=== PATIENT | female | born 1950 | race Caucasian/White ===

== ENCOUNTER 2020-09-19 08:57 | Outpatient (REF) | payer MEDICARE, MEDICAID, SELFPAY ==
--- NOTE | 2020-09-19 09:03 | MM_ITS ---
EXAMINATION: MM SCREENING DIGITAL BREAST TOMOSYNTHESIS, BILATERAL CLINICAL INFORMATION: Screening. Asymptomatic. The lifetime risk of breast cancer based on the Tyrer-Cuzick Model is 3%. COMPARISON: Mammography: 03/09/2012 TECHNIQUE: Digital breast tomosynthesis is performed in both the craniocaudal and mediolateral oblique views along with computer-aided detection (CAD). Synthesized 2D images are generated from the tomosynthesis. FINDINGS: There are scattered areas of fibroglandular density (ACR BI-RADS breast composition Category b). There are no significant masses, abnormal calcifications, or other abnormalities. There are scattered bilateral benign punctate and coarse and vascular calcifications. Biopsy clip marker present posterior right breast MLO view along posterior nipple line. Prominent axillary nodes are slightly decreased since 2012. MM/MM tomosynthesis screening BI IMPRESSION: No significant changes from remote prior exam. ASSESSMENT: BI-RADS 2: Benign RECOMMENDATION: Routine annual mammography screening. This patient's information was entered into a reminder system with a target due date for their next mammogram.
== END 2020-09-19 08:58 | disposition home or self-care (01) ==
LOC: HO.MAMMO 08:57
PROVIDERS: PCP Internal Medicine; Visit Provider Internal Medicine
DX: Z12.31 Encounter for screening mammogram for malignant neoplasm of breast (principal)
CPT/HCPCS: 77063; 77067

== ENCOUNTER → 2021-01-08 09:15 | Outpatient (BNVA) | payer MEDICARE, MEDICAID, SELFPAY | PROVIDERS: PCP Internal Medicine; Visit Provider Surgery Vascular Surgery | DX: I89.0 Lymphedema, not elsewhere classified (principal) | CPT/HCPCS: 99212 ==

== ENCOUNTER 2021-05-07 01:50 | Emergency (ER) | payer MEDICARE, MEDICAID, SELFPAY ==
--- NOTE | ~2021-05-07 | XR_ITS ---
EXAMINATION: XR PORTABLE CHEST CLINICAL INFORMATION: Cough COMPARISON: 12/12/2009 TECHNIQUE: AP portable upright view of the chest FINDINGS: Lungs are clear. No consolidation, pneumothorax, or pleural effusion. Cardiac and mediastinal contours are normal. Pulmonary vasculature is unremarkable. Osseous structures are unremarkable. Degenerative disc disease is present in the thoracic spine. XR/XR chest 1V IMPRESSION: No acute cardiopulmonary findings
--- NOTE | ~2021-05-07 | CT_ITS ---
EXAMINATION: CT HEAD WITHOUT CONTRAST CLINICAL INFORMATION: Altered mental status. COMPARISON: 02/03/2019 TECHNIQUE: Contiguous axial imaging was performed from the skull base to vertex without intravenous administration of contrast. This CT examination was performed using dose optimization techniques as appropriate, variously including the following: *Automated exposure control *Adjustment of mA and/or kV according to patient size (this includes techniques or standardized protocols for targeted exams where dose is matched to indication/reason for exam; i.e. extremities or head) *Use of iterative reconstruction technique DLP: 612 mGy-cm FINDINGS: There is no evidence of acute intracranial hemorrhage or territorial infarction. No abnormal mass effect or midline shift is seen. Estrella to white matter differentiation is well preserved. No extra-axial fluid collections are identified. Subtle focal prominence of the extra-axial CSF space in the right middle cranial fossa anteriorly is unchanged from prior and likely corresponds to a arachnoid cyst. The ventricles are normal in size. A few foci of hypoattenuation in the subcortical and periventricular white matter are most consistent with chronic microangiopathic changes. Calcific atherosclerosis is present within the cavernous and supraclinoid segments of the internal carotid arteries. The osseous structures and soft tissues are normal. The mastoid air cells and visualized portions of the paranasal sinuses are well aerated. CT/CT head/brain wo con IMPRESSION: No acute intracranial pathology.
[2021-05-07 02:22] VITALS: BP 139/72; BP 168/88; PULSE 65; PULSE 80; RESP 16; TEMP 36.9; O2SAT 97; O2SAT 98; BMI 32.7
[2021-05-07 04:00] VITALS: BP 163/73; PULSE 64; RESP 16; O2SAT 97
--- NOTE | 2021-05-07 04:05 | ED_ITS ---
HPI - Syncope General Chief Complaint: Syncope Stated Complaint: syncope Time Seen by Provider: 05/07/21 04:03 History of Present Illness HPI narrative: Patient is a 71-year-old female with a history of dementia history of hypertension history of psoriasis history of asthma. Patient found outside Her house with possible syncopal episode. Patient does not recall the exact events that occurred prior or afterwards. No chest pain. No shortness of breath no diaphoresis. Has no complaints currently. Patient is from home. No new change in medication. Patient not on blood thinners. Related Data Home Medications Medication Instructions Recorded Confirmed amlodipine 10 mg tablet 10 mg PO DAILY 01/08/21 memantine 5 mg tablet 5 mg PO BID 01/08/21 metformin 500 mg tablet 500 mg PO BID 01/08/21 risperidone 0.5 mg tablet 0.5 mg PO BID 01/08/21 Allergies Allergy/AdvReac Type Severity Reaction Status Date / Time DUST Allergy Mild SHORTNESS Uncoded 07/26/20 15:07 OF BREATH From Lactaid AdvReac Mild DIARRHEA Uncoded 07/26/20 15:07 Review of Systems Review of Systems: No chest pain or shortness of breath no nausea no vomiting. No pain on urination. All systems reviewed otherwise negative FOR[facility]LY [facility] Past Medical History Attestation statement: The following information was validated with the patient. Medical History (Updated 05/07/21 @ 05:26 by Cici House MD) Diabetes Surgical History H/O prior ablation treatment Social History Social History Advance Directives: No Advance Directives Information Provided: No Physical Exam Vital Signs: Vital Signs: Last Vital Signs Temp 98.4 F 05/07/21 02:22 Pulse 65 05/07/21 02:22 Resp 16 05/07/21 02:22 BP 139/72 05/07/21 02:22 Pulse Ox 97 05/07/21 02:22 Body Mass Index 32.7 Appearance: Alert. No acute distress. Eyes: Pupils equal, round and reactive to light. ENT: Pharynx normal. Neck: Normal inspection. Neck supple. No lymph nodes noted. No crepitus CVS: Normal heart rate and rhythm. Pulses normal. Normal S1 and S2 Respiratory: No respiratory distress. Breath sounds normal. No Wheezing. No rales Abdomen: Soft and nontender. No rigidity. No distention. good BS x4 Skin: Skin warm and dry. Normal skin color. Normal skin turgor. Extremities: No lower extremity edema. Neurovascular intact to all extremities. No Lacerations. No Rash Neuro: awake alert oriented to self. know she is in the hospital but unsure which 1. Not oriented to time.. No motor deficit. No sensory deficit. Moving all extermities. No slurred speech MDM - Syncope MDM Narrative Medical decision making narrative: Patient's EKG showed a sinus pattern heart rate is 70 NM QRS QT within normal limits there is no acute ST segment elevation. Patient's labs are unremarkable. CT scan of the head was negative for acute evidence of bleeding. No mass. Electrolytes was normal. Patient's urine showed no evidence of infection. Chest x-ray showed no focal infiltrate. Will admit patient for possible syncopal episode. Currently in stable condition. Lab Data Result diagrams: 05/07/21 04:27 05/07/21 04:27 Labs: Lab Results 05/07/21 05/07/21 05/07/21 Range/Units 04:27 04:27 04:27 WBC 9.8 (4.8-10.8) X10*3/uL RBC 4.04 L (4.20-5.50) X10*6/uL Hgb 12.5 (12.0-16.0) g/dl Hct 37.8 (37-47) % MCV 93.6 (80-98) fL MCH 30.9 (27.0-33.0) pg MCHC 33.1 (31.0-35.0) g/dl RDW 11.9 (11.0-16.0) % Plt Count 245 (160-400) X10*3/uL MPV 9.8 (9.4-12.3) fL Immature Gran % (Auto) 0.6 H (0.0-0.4) % Neut % (Auto) 60.7 (45-73) % Lymph % (Auto) 29.6 (20-40) % Dauphin % (Auto) 7.0 (2-11) % Eos % (Auto) 1.5 (0-4) % Baso % (Auto) 0.6 (0-2) % Lymph # (Auto) 2.9 (1.2-4.9) X10*3/uL Dauphin # (Auto) 0.7 (0.1-1.2) X10*3/uL Eos # (Auto) 0.2 (0.0-0.4) X10*3/uL Baso # (Auto) 0.1 (0.0-0.2) X10*3/uL Abs Immat Gran (auto) 0.06 H (0.00-0.03) X10*3/uL Absolute Neuts (auto) 6.0 (2.0-8.3) X10*3/uL Absolute Nucleated RBC 0.000 (0.0-0.012) X10*3/uL Nucleated RBC % (auto) 0.0 (0.0-0.2) /100WBC Sodium 142 (135-145) mmol/L Potassium 4.1 (3.3-5.1) mmol/L Chloride 104 (96-108) mmol/L Carbon Dioxide 28 (22-29) mmol/L Anion Gap 14 (12-20) BUN 21 H (9-16) mg/dL Creatinine 1.17 (0.5-1.4) mg/dL Estim Creat Clear Calc 40.5 Estimated GFR 45 POC Glucose (60-115) mg/dL Random Glucose 159 H (60-115) mg/dL Calcium 9.4 (8.4-10.2) mg/dL Total Bilirubin 0.3 (0.0-1.0) mg/dL Direct Bilirubin 0.2 (0.0-0.5) mg/dL AST 24 (5-31) U/L ALT 25 (0-31) U/L Alkaline Phosphatase 104 (39-117) U/L Troponin I High Sens (<3.5-17.0) ng/L Total Protein 7.9 (6.5-8.0) g/dL Albumin 4.3 (3.5-5.0) g/dL Urine Color COLORLESS Urine Appearance CLEAR Urine pH 6.0 (5.0-8.0) Ur Specific Adams 1.010 (1.005-1.025) Urine Protein NEG (NEG-TRACE) MG/DL Urine Glucose (UA) NEG (NEG) MG/DL Urine Ketones NEG (NEG) MG/DL Urine Blood NEG (NEG) Urine Nitrite NEG (NEG) Ur Leukocyte Esterase NEG (NEG) Urine RBC 0 (0) /HPF Urine WBC 0-2 (0-4) /HPF Ur Squamous Epith Cells TRACE /LPF Urine Bacteria TRACE /LPF Ethyl Alcohol mg/dL 05/07/21 05/07/21 05/07/21 Range/Units 04:27 04:27 05:04 WBC (4.8-10.8) X10*3/uL RBC (4.20-5.50) X10*6/uL Hgb (12.0-16.0) g/dl Hct (37-47) % MCV (80-98) fL MCH (27.0-33.0) pg MCHC (31.0-35.0) g/dl RDW (11.0-16.0) % Plt Count (160-400) X10*3/uL MPV (9.4-12.3) fL Immature Gran % (Auto) (0.0-0.4) % Neut % (Auto) (45-73) % Lymph % (Auto) (20-40) % Dauphin % (Auto) (2-11) % Eos % (Auto) (0-4) % Baso % (Auto) (0-2) % Lymph # (Auto) (1.2-4.9) X10*3/uL Dauphin # (Auto) (0.1-1.2) X10*3/uL Eos # (Auto) (0.0-0.4) X10*3/uL Baso # (Auto) (0.0-0.2) X10*3/uL Abs Immat Gran (auto) (0.00-0.03) X10*3/uL Absolute Neuts (auto) (2.0-8.3) X10*3/uL Absolute Nucleated RBC (0.0-0.012) X10*3/uL Nucleated RBC % (auto) (0.0-0.2) /100WBC Sodium (135-145) mmol/L Potassium (3.3-5.1) mmol/L Chloride (96-108) mmol/L Carbon Dioxide (22-29) mmol/L Anion Gap (12-20) BUN (9-16) mg/dL Creatinine (0.5-1.4) mg/dL Estim Creat Clear Calc Estimated GFR POC Glucose 138 H (60-115) mg/dL Random Glucose (60-115) mg/dL Calcium (8.4-10.2) mg/dL Total Bilirubin (0.0-1.0) mg/dL Direct Bilirubin (0.0-0.5) mg/dL AST (5-31) U/L ALT (0-31) U/L Alkaline Phosphatase (39-117) U/L Troponin I High Sens < 3.5 (<3.5-17.0) ng/L Total Protein (6.5-8.0) g/dL Albumin (3.5-5.0) g/dL Urine Color Urine Appearance Urine pH (5.0-8.0) Ur Specific Adams (1.005-1.025) Urine Protein (NEG-TRACE) MG/DL Urine Glucose (UA) (NEG) MG/DL Urine Ketones (NEG) MG/DL Urine Blood (NEG) Urine Nitrite (NEG) Ur Leukocyte Esterase (NEG) Urine RBC (0) /HPF Urine WBC (0-4) /HPF Ur Squamous Epith Cells /LPF Urine Bacteria /LPF Ethyl Alcohol < 10 mg/dL Discharge Plan Discharge Clinical Impression: Syncope Patient Disposition: Admitted As Inpatient
--- NOTE | 2021-05-07 04:07 | ECG_ITS ---
Test Reason : SYNCOPAL Blood Pressure : / mmHG Vent. Rate : 066 BPM Atrial Rate : 066 BPM P-R Int : 232 ms QRS Dur : 082 ms QT Int : 428 ms P-R-T Axes : 043 -02 009 degrees QTc Int : 448 ms Sinus rhythm with 1st degree A-V block Inferior infarct (cited on or before 11-MAR-2010) Abnormal ECG When compared with ECG of 11-MAR-2010 14:24, Nonspecific T wave abnormality now evident in Inferior leads Referred By: Cici House Electronically Signed By:HONEY ADKINS MD
--- NOTE | 2021-05-07 04:30 | PC.NURSE ---
PT HAS A IV PLACED BY EMS. LABS DRAWN TO LAB FOR EVAL. PT UP TO RESTROOM FOR URINE SAMPLE WITH STEADY EVEN GAIT TO RESTROOM. SAMPLE SENT TO LAB. PT TO CT AMBULATORY. PT DENIES ANY COMPLAINTS AND WILL CONTINUE TO MONITOR PT.
[2021-05-07 04:40] LABS: MANUAL DIFF FLAG NO
[2021-05-07 04:41] LABS: Appearance Urine CLEAR; Color Urine COLORLESS; Glucose Urine UA NEG (NEG); Leukocyte Esterase Urine NEG (NEG); Nitrite Urine NEG (NEG); Urine Blood NEG (NEG); Urine Ketones NEG (NEG); Urine Protein NEG (NEG-TRACE)
[2021-05-07 04:42] LABS: Basophils Absolute Auto 0.1 X10*3/uL (0.0-0.2); Basophils Percent Auto 0.6 % (0-2); Eosinophils Absolute Auto 0.2 X10*3/uL (0.0-0.4); Eosinophils Percent Auto 1.5 % (0-4); Hematocrit 37.8 % (37-47); Hemoglobin 12.5 g/dl (12.0-16.0); Imm Gran Abs Auto 0.06 X10*3/uL (0.00-0.03); Imm Gran Pct Auto 0.6 % (0.0-0.4); Lymphocytes Absolute Auto 2.9 X10*3/uL (1.2-4.9); Lymphocytes Percent Auto 29.6 % (20-40); Mean Corpuscular HGB Conc 33.1 g/dl (31.0-35.0); Mean Corpuscular Hemoglobin 30.9 pg (27.0-33.0); Mean Corpuscular Volume 93.6 fL (80-98); Mean Platelet Volume 9.8 fL (9.4-12.3); Monocytes Absolute Auto 0.7 X10*3/uL (0.1-1.2); Neutrophils Percent Auto 60.7 % (45-73); Platelet Count 245 X10*3/uL (160-400); Red Blood Count 4.04 X10*6/uL (4.20-5.50); Red Cell Distribution Width 11.9 % (11.0-16.0); White Blood Count 9.8 X10*3/uL (4.8-10.8)
[2021-05-07 05:04] LABS: Bacteria Urine TRACE /LPF; RBC Urine 0 /HPF (0); Squamous Epithelial Cell Urine TRACE /LPF; Troponin-I High Sensitivity < 3.5 ng/L (<3.5-17.0); WBC Urine 0-2 /HPF (0-4)
[2021-05-07 05:06] LABS: Ethanol < 10 mg/dL
[2021-05-07 05:08] LABS: Glucose, Whole Blood 138 mg/dL (60-115)
[2021-05-07 05:09] LABS: Alanine Aminotransferase 25 U/L (0-31); Albumin Level 4.3 g/dL (3.5-5.0); Alkaline Phosphatase 104 U/L (39-117); Anion Gap 14 (12-20); Aspartate Amino Transferase 24 U/L (5-31); Bilirubin Direct 0.2 mg/dL (0.0-0.5); Bilirubin Total 0.3 mg/dL (0.0-1.0); Blood Urea Nitrogen 21 mg/dL (9-16); Calcium 9.4 mg/dL (8.4-10.2); Carbon Dioxide 28 mmol/L (22-29); Chloride 104 mmol/L (96-108); Creatinine Clr Calc Pharmacy 40.5; Estimated Glomerular Filt Rate 45; Glucose Random 159 mg/dL (60-115); Potassium 4.1 mmol/L (3.3-5.1); Sodium 142 mmol/L (135-145); Total Protein 7.9 g/dL (6.5-8.0)
[2021-05-07 05:29] LABS: Thyroid Stimulating Hormone 1.28 uIU/mL (0.32-4.0)
[2021-05-07 06:00] VITALS: BP 146/79; PULSE 60; RESP 16; O2SAT 97
--- NOTE | 2021-05-07 06:25 | PC.NURSE ---
MED REC DONE. PT ON MONITOR WITH A HR OF 61. PT IN NAD AND AWAITING FOR ADMISSION ORDERS. PT DENIES ANY COMPLAINTS. PT AT TIME APPEARS TO BE CONFUSED AND FORGETFUL REPEATING ASKING HOW DID I GET HERE AND WHAT HAPPENED? PT REDIRECTED. WILL CONTINUE TO MONITOR PT.
--- NOTE | 2021-05-07 07:30 | PC.NURSE ---
pt ambulatory to th e bathroom and back with a steady gate.
[2021-05-07 08:29] VITALS: PULSE 64
[2021-05-07 08:29] LABS: COVID-19 Test Negative (Negative); IDNOW Serial# 9DD0AD1C
[2021-05-07 08:31] VITALS: BP 160/81; PULSE 60; RESP 14; O2SAT 100
[2021-05-07 10:00] VITALS: BP 149/68; PULSE 64; RESP 16; O2SAT 98
--- NOTE | 2021-05-07 10:22 | PC.NURSE ---
discharge instructions given to sister who verbalized understanding and denie sany questions
== END 2021-05-07 10:21 | disposition home or self-care (01) ==
PROVIDERS: Emergency Medicine Emergency Medical Services; Emergency Provider Emergency Medicine Emergency Medical Services
DX: R55 Syncope and collapse (principal); F03.90 Unspecified dementia, unspecified severity, without behavioral disturbance, psychotic disturbance, mood disturbance, and anxiety; I10 Essential (primary) hypertension; E11.9 Type 2 diabetes mellitus without complications; J45.909 Unspecified asthma, uncomplicated; Z20.822 Contact with and (suspected) exposure to COVID-19
CPT/HCPCS: 36415; 70450; 71045; 80048; 80076; 81001; 82077; 82947; 84443; 84484; 85025; 87635; 93005; 99285

== ENCOUNTER 2021-09-16 10:35 | Outpatient (REF) | payer MEDICARE, MEDICAID, SELFPAY ==
--- NOTE | ~2021-09-16 | US_ITS ---
EXAMINATION: US RETROPERITONEAL LIMITED (RENAL ONLY) CLINICAL INFORMATION: Chronic kidney disease. COMPARISON: CT abdomen and pelvis 05/20/2010. TECHNIQUE: Real-time imaging of the kidneys. FINDINGS: RIGHT KIDNEY: 8.2 x 4.0 x 4.3 cm (SAG x AP x TRV). The kidney is normal in size and echogenicity. Renal cortical thickness is normal. No calculi or focal parenchymal lesions. No hydronephrosis. LEFT KIDNEY: 9.4 x 4.4 x 4.0 cm (SAG x AP x TRV). The kidney is normal in size, contour, and echogenicity. Renal cortical thickness is normal. No calculi or focal parenchymal lesions. No hydronephrosis. US/US renal BI IMPRESSION: No renal calculi or hydronephrosis of either kidney.
== END 2021-09-16 10:36 | disposition home or self-care (01) ==
LOC: HO.US 10:35
PROVIDERS: Visit Provider Internal Medicine Nephrology
DX: N18.32 Chronic kidney disease, stage 3b (principal)
CPT/HCPCS: 76775

== ENCOUNTER 2021-12-03 13:20 | Outpatient (REF) | payer MEDICARE, MEDICAID, SELFPAY ==
--- NOTE | ~2021-12-03 | CT_ITS ---
EXAMINATION: CT ABDOMEN AND PELVIS WITH CONTRAST CLINICAL INFORMATION: Left lower quadrant abdominal pain, swelling, mass lump. COMPARISON: 05/20/2010 TECHNIQUE: Multidetector volumetric images were obtained from the superior aspect of the liver through the pubic symphysis following administration 85 mL of Omnipaque 350 intravenous contrast. Sagittal and coronal reformatted images were obtained on the technologist's workstation. Oral contrast: No This CT examination was performed using dose optimization techniques as appropriate, variously including the following: *Automated exposure control *Adjustment of mA and/or kV according to patient size (this includes techniques or standardized protocols for targeted exams where dose is matched to indication/reason for exam; i.e. extremities or head) *Use of iterative reconstruction technique DLP: 474 mGy-cm FINDINGS: LUNG BASES: There are some bilateral scattered regions of ground-glass opacity in a peripheral pattern which may be related to atelectasis; however, viral pneumonitis is not excluded on this study. No pleural or pericardial effusion. There is a 1.5 x 0.9 cm right pericardial lymph node. This was present on prior study of 05/20/2010. LIVER, GALLBLADDER, AND BILIARY TREE: The liver is normal in size, shape, and attenuation. No focal hepatic lesion or biliary ductal dilatation is present. Status post cholecystectomy. Common bile duct measures 1.2 cm in diameter. No filling defects within the common bile duct are identified. No mass impression with a pancreatic mass is seen. PANCREAS: There has been fatty involution of the pancreas. Within the head of the pancreas, there is an approximately 8 mm low-density lesion. Within the distal body of the pancreas, there is a 1.5 x 0.7 cm low-density region. No peripancreatic inflammatory changes seen. The pancreatic lesions were not definitely identified on study of 05/20/2010. SPLEEN: Unremarkable. ADRENAL GLANDS: Unremarkable. KIDNEYS AND URETERS: The kidneys are normal in size, shape, and attenuation. No hydronephrosis, hydroureter, or calculi seen. No perinephric stranding. BLADDER: Decompressed GASTROINTESTINAL TRACT: No dilated loops of large or small bowel are seen. No free air or free fluid is noted. No pericolonic inflammatory changes seen. There are some scattered diverticula present. The appendix is not identified. ABDOMINAL WALL: No significant hernia is appreciated. LYMPH NODES: There are prominent right inguinal lymph nodes, the largest of which measures 2.3 x 1.0 cm in size. There is a 1.7 x 1.0 cm left iliac chain lymph node. VASCULAR: There is moderate calcified plaque seen in the aortoiliac system with prominent plaque at the origins of the celiac and superior mesenteric arteries. No abdominal aortic aneurysm. Portal vein is patent. PELVIC VISCERA: Unremarkable. OSSEOUS STRUCTURES: No suspicious destructive bony lesions identified. Multilevel degenerative disc disease is seen. Changes of enthesopathy seen about the pelvis. CT/CT abdomen pelvis w con IMPRESSION: Scattered regions of groundglass opacity about the periphery of both lung bases which may be related to atelectasis; however, this appearance could also be seen with viral pneumonitis. Prominent common bile duct status post cholecystectomy. Low-density pancreatic lesions consistent with serous or mucinous pancreatic tumors. These were not definitely identified on study of 05/20/2010; however, intravenous contrast was not used on that study. Left iliac chain lymphadenopathy as well as prominent lymph nodes in the right inguinal region. Fleischner guidelines were followed.
[2021-12-03 14:30] LABS: Anion Gap 17 (12-20); Blood Urea Nitrogen 20 mg/dL (9-16); Calcium 9.4 mg/dL (8.4-10.2); Carbon Dioxide 28 mmol/L (22-29); Chloride 101 mmol/L (96-108); Estimated Glomerular Filt Rate 39; Glucose Random 138 mg/dL (60-115); Potassium 4.6 mmol/L (3.3-5.1); Sodium 141 mmol/L (135-145)
[2021-12-03] MEDS: Barium Sulfate Oral (Berry) 450 ML ORAL.SUSP 900 ML PO (16:09)
[2021-12-03] MEDS: iohexoL 350 MG/ML 100 ML INFUS..BTL IV (16:10)
== END 2021-12-03 13:21 | disposition home or self-care (01) ==
LOC: HO.CT 13:20
PROVIDERS: Absent Provider Internal Medicine; PCP Internal Medicine; Visit Provider Internal Medicine
DX: R19.04 Left lower quadrant abdominal swelling, mass and lump (principal)
CPT/HCPCS: 36415; 74177; 80048; Q9967

== ENCOUNTER → 2021-12-25 11:14 | Outpatient (BNVA) | payer MEDICARE, MEDICAID, SELFPAY | PROVIDERS: PCP Internal Medicine; Referring Provider Internal Medicine; Visit Provider Surgery | DX: K86.9 Disease of pancreas, unspecified (principal) | CPT/HCPCS: 99202 ==

== ENCOUNTER 2022-01-27 10:34 | Outpatient (REF) | payer MEDICARE, MEDICAID, SELFPAY ==
--- NOTE | ~2022-01-27 | MR_ITS ---
EXAMINATION: MR ABDOMEN WITHOUT AND WITH CONTRAST CLINICAL INFORMATION: Unspecified disease of pancreas. COMPARISON: Previous CT of the abdomen and pelvis November 2021. TECHNIQUE: MR abdomen was performed without and with use of 6.5 mL intravenous Gadavist gadolinium contrast. Postcontrast images are performed in multiphase dynamic sequences. Imaging was performed in 3 planes. FINDINGS: LUNG BASES: The visualized lung bases are unremarkable. LIVER, GALLBLADDER, AND BILIARY TREE: The liver is normal in size, smooth in contour and contour. There is slight signal loss in the liver on out of phase sequences suggestive of mild fatty infiltration. There is no intrahepatic biliary duct dilatation. There is mild dilatation of the common bile duct measuring 1 cm. The common bile duct is dilated down to the head of the pancreas. No stone, mass or bile duct abnormal enhancement is seen. The gallbladder has been removed. PANCREAS: Pancreas appears slightly atrophic. There are innumerable small cysts seen in the pancreas. The largest cysts measure 1 cm in the tail of the pancreas and 1 cm in the uncinate process of the head of the pancreas. There are innumerable smaller cysts seen throughout the pancreas that may represent dilated pancreatic duct radicles. The 1 cm cyst in the tail of the pancreas demonstrates no solid component or enhancement. Unfortunately the cyst in the uncinate process of the head of the pancreas is not included in the [id number] on axial images. This is seen coronal T2 image 12 series 3 and sagittal T2 image 21 series 5. Enhancement of this second smaller cyst cannot be assessed. There is question of mild focal dilatation of the main pancreatic duct in the body/tail of the pancreas measuring 5 mm, for example coronal T2 image 14 series 3 and axial images post contrast series 33-37. SPLEEN: Normal. ADRENAL GLANDS: Normal. KIDNEYS AND URETERS: The kidneys are normal in size, shape, and enhance symmetrically. Small bilateral peripelvic cysts. No hydronephrosis. No perinephric stranding. GASTROINTESTINAL TRACT: Mild diverticulosis of the colon. No bowel obstruction. No ascites or fluid collection. ABDOMINAL WALL: No significant hernia is appreciated. LYMPH NODES: No lymphadenopathy. VASCULAR: Unremarkable. OSSEOUS STRUCTURES: Marrow signal normal. MR/MR abdomen wo/w con IMPRESSION: 1. Mild fatty infiltration of the liver. No intrahepatic biliary duct dilatation. Mild dilatation of the common bile duct down to the head of the pancreas measuring 1 cm. No common bile duct stone or abnormal bile duct wall enhancement seen. Atrophic changes of the pancreas. Multiple small pancreatic cysts, largest measuring 1 cm in the uncinate process of the head of the pancreas and in the tail of the pancreas. Smaller cysts may represent dilated pancreatic duct radicles. Question focal area of mild main pancreatic duct dilatation in the body/tail of the pancreas. Follow-up imaging in one year recommended. 2. Small bilateral peripelvic cysts. 3. Mild diverticulosis.
[2022-01-27 10:47] LABS: Blood Urea Nitrogen 19 mg/dL (9-16); Estimated Glomerular Filt Rate 53
== END 2022-01-27 10:35 | disposition home or self-care (01) ==
LOC: HO.MRI 10:34
PROVIDERS: PCP Internal Medicine; Visit Provider Surgery
DX: K86.9 Disease of pancreas, unspecified (principal)
CPT/HCPCS: 36415; 74183; 82565; 84520; A9585

== ENCOUNTER 2022-02-03 08:44 | Outpatient (REF) | payer MEDICARE, MEDICAID, SELFPAY | END 2022-02-03 08:45 | disposition home or self-care (01) | LOC: HO.MRI 08:44 | PROVIDERS: Visit Provider Surgery | DX: K86.9 Disease of pancreas, unspecified (principal) | CPT/HCPCS: A9585 ==

== ENCOUNTER → 2022-02-06 11:21 | Outpatient (BNVA) | payer MEDICARE, MEDICAID, SELFPAY | PROVIDERS: PCP Internal Medicine; Referring Provider Internal Medicine; Visit Provider Surgery | DX: K86.9 Disease of pancreas, unspecified (principal) | CPT/HCPCS: 99212 ==

== ENCOUNTER 2022-11-17 19:56 | Emergency (ER) | payer MEDICARE, MEDICAID, SELFPAY ==
--- NOTE | ~2022-11-17 | CT_ITS ---
EXAMINATION: CT HEAD WITHOUT CONTRAST CLINICAL INFORMATION: Altered mental status COMPARISON: CT head 05/07/2021 TECHNIQUE: Contiguous axial imaging was performed from the skull base to vertex without intravenous administration of contrast. Coronal and sagittal reformatted images are performed at the CT scanner. [This CT examination was performed using dose optimization techniques as appropriate, variously including the following: *Automated exposure control *Adjustment of mA and/or kV according to patient size (this includes techniques or standardized protocols for targeted exams where dose is matched to indication/reason for exam; i.e. extremities or head) *Use of iterative reconstruction technique] DLP: 588 mGy-cm. FINDINGS: There is no evidence of acute intracranial hemorrhage or territorial infarction. No abnormal mass-effect or midline shift is seen. [place] to white matter differentiation is well preserved. No extra-axial fluid collections are identified. There is generalized global volume loss. There is moderate prominence of the ventricles and the sulci . There is mild hypodensity of the periventricular white matter due to chronic small vessel ischemic disease. There are vascular calcifications of the internal carotid arteries bilaterally. There is no osseous abnormality. The mastoid air cells and visualized portions of the paranasal sinuses are well-aerated. CT/CT head/brain wo IV con IMPRESSION: No acute intracranial pathology.
--- NOTE | ~2022-11-17 | XR_ITS ---
EXAMINATION: XR CHEST CLINICAL INFORMATION: Acute mental status change COMPARISON: Chest x-ray 05/07/2021 TECHNIQUE: Frontal view of the chest was obtained. FINDINGS: The lungs are clear. No airspace consolidation, pleural effusion, or pneumothorax. The cardiomediastinal silhouette is within normal limits. No acute osseous injury. Surgical clips project in the right upper quadrant. XR/XR chest 1V IMPRESSION: No acute pulmonary process.
[2022-11-17 20:09] VITALS: BP 109/60; PULSE 67; RESP 18; TEMP 36.3; O2SAT 97; BMI 27.3
--- NOTE | 2022-11-17 20:11 | ED.FEMALEGU ---
HPI - Female Genitourinary General Chief complaint: General Medical <HINA Will - Last Filed: 11/17/22 20:16> Stated complaint: UTI <HINA Will - Last Filed: 11/17/22 20:16> Time Seen by Provider: 11/17/22 22:00 <HINA Will - Last Filed: 11/17/22 20:16> Source: family (Sister and caregiver.) <Barron Medina MD - Last Filed: 11/18/22 00:56> Mode of arrival: ambulatory <Barron Medina MD - Last Filed: 11/18/22 00:56> Limitations: other (Dementia) <Barron Medina MD - Last Filed: 11/18/22 00:56> History of Present Illness HPI Narrative: 72-year-old female history of dementia live with her family mostly dependent on her family/VNA for daily activity patient with advanced dementia baseline patient is confused and incoherent cannot carry a full conversation with her family member brought in by her family for increased confusion and bad odor in her urine with frequent urination with decreased p.o. intake. Patient otherwise is not complaining of chest pain or abdominal pain. Patient is known to have cataract that patient did not follow-up with her eye doctor due to COVID pandemic for the past 2 years. Patient has been complaining of decrease in vision in both eyes and blurry vision for the past 2 weeks. As per family no fever, no chills. <Barron Medina MD - Last Filed: 11/18/22 00:56> Related Data Home medications: Home Medications Medication Instructions Recorded Confirmed amlodipine 10 mg tablet 10 mg PO DAILY 01/08/21 02/06/22 memantine 5 mg tablet 5 mg PO BID 01/08/21 02/06/22 metformin 500 mg tablet 500 mg PO BID 01/08/21 02/06/22 risperidone 0.5 mg tablet 0.5 mg PO BID 01/08/21 02/06/22 Previous Rx's Medication Instructions Recorded cefuroxime axetil 500 mg tablet 500 mg PO BID #14 tabs 11/18/22 <HINA Will - Last Filed: 11/17/22 20:16> Allergies/Adverse reactions: Allergies Allergy/AdvReac Type Severity Reaction Status Date / Time DUST Allergy Mild SHORTNESS Uncoded 12/25/21 11:26 OF BREATH From Lactaid AdvReac Mild DIARRHEA Uncoded 12/25/21 11:26 <HINA Will - Last Filed: 11/17/22 20:16> Review of Systems Review of Systems: All other systems are reviewed and are negative Constitutional: Reports as per HPI and Reports no additional constitutional complaints Eyes: Reports as per HPI and Reports no additional eye complaints Reports system reviewed and no additional complaints, except as documented Cardiovascular: Reports as per HPI and Reports no additional cardiovascular complaints Respiratory: Reports as per HPI and Reports no additional respiratory complaints Gastrointestinal: Reports as per HPI and Reports no additional gastrointestinal complaints Genitourinary: Reports no additional female genitourinary complaints Musculoskeletal: Reports no additional musculoskeletal complaints Skin/Breast: Reports system reviewed and no additional complaints, except as docu Psychiatric: Reports no additional psychiatric complaints Endocrine: Reports no additional endocrine complaints Hematologic/Lymphatic: Reports no additional hematologic/lymphatic complaints Allergic/Immunologic: Reports no additional allergic/immunologic complaints Reports system reviewed and no additional complaints, except as documented and Reports Abnormal speech present <Barron Medina MD - Last Filed: 11/18/22 00:56> FORMERLY [facility], [facility] Past Medical History Medical History: Medical History Dementia Diabetes Pancreatic lesion Tubular adenoma of colon <HINA Will - Last Filed: 11/17/22 20:16> Surgical History: Surgical History H/O prior ablation treatment <HINA Will - Last Filed: 11/17/22 20:16> Social History Social History: Social History Alcohol intake: never Patient Tobacco Use Status: Never used Tobacco Smoked in Last 30 Days: No Use of substances other than those prescribed or required for medical reasons: No Advance Directives: No Advance Directives Information Provided: Yes <HINA Will - Last Filed: 11/17/22 20:16> Physical Exam Vital Signs: Vital Signs: Last Vital Signs Temp 98.0 F 11/17/22 22:00 Pulse 62 11/18/22 00:15 Resp 14 11/18/22 00:15 BP 128/62 11/18/22 00:15 Pulse Ox 96 11/18/22 00:15 O2 Del Method 11/18/22 00:15 BMI result Body Mass Index 27.3 <HINA Will - Last Filed: 11/17/22 20:16> Vital Signs: Last Vital Signs Temp 98.0 F 11/17/22 22:00 Pulse 62 11/18/22 00:15 Resp 14 11/18/22 00:15 BP 128/62 11/18/22 00:15 Pulse Ox 96 11/18/22 00:15 O2 Del Method 11/18/22 00:15 BMI result Body Mass Index 27.3 Vital signs have been reviewed as appeared to be correct. Blood pressure normal. Heart rate normal. Respiration rate normal. Temperature normal. Oxygen saturation normal. <Barron Medina MD - Last Filed: 11/18/22 00:56> Appearance: Alert. Oriented X1 to person. No acute distress. Head: Normal external exam. Normocephalic. Atraumatic. No Galvan signs noted. No raccoon eyes noted Eyes: PERRLA. EOMI. Conjunctiva and sclera normal. Eyelids normal. ENT: TM's Normal. Pharynx normal. Uvula midline. Moist mucous membranes. No trismus noted. No drooling noted. No muffled voice noted. Neck: Normal inspection. Neck supple. FROM. No adenopathy. Thyroid Normal. No meningeal signs. No neck mass noted. CVS: Normal heart rate and rhythm. Heart sound normal. No murmurs noted. Pulses normal throughout. Respiratory: No respiratory distress. Painless inspiration. Breath sounds normal. No wheezes/rales/rhonchi noted. Chest nontender. No accessory muscle usage noted or decreased air movement noted. Abdomen: Soft and nontender. Bowel sounds normal in all 4 quadrants. No distention noted. No organomegaly noted. No visible injury noted. Back: No CVA tenderness. Full range of motion noted. Skin: Skin warm and dry. Normal skin color. Normal skin turgor. No rashes/lesions/lacerations noted. Extremities: No lower extremity edema. Extremities exhibit normal range of motion. Extremities nontender. Neuro: Cranial nerve exam: II-XII are grossly intact No motor deficit. No sensory deficit. Reflexes normal. <Barron Medina MD - Last Filed: 11/18/22 00:56> Course Course Course Narrative: S[place]---71-year-old female with a history of dementia, hypertension, psoriasis, asthma, CKD, DM, presenting to the ED c/o AMS with increasing confusion, agitation, decreased PO intake and odorous urine x couple days. Hx obtained from family. Family or VNA care for patient 01/06 EKG, labs, UA, CXR, head CT, COVID-19/influenza/RSV testing ordered <HINA Will - Last Filed: 11/17/22 20:16> Reevaluation(s) Reevaluation #1: Patient with worsening of dementia secondary to UTI. Hypo magnesemia magnesium was replaced in the ED. <Barron Medina MD - Last Filed: 11/18/22 00:56> Time: 00:54 <Barron Medina MD - Last Filed: 11/18/22 00:56> Medications Administered Discontinued Medications Generic Name Dose Route Start Last Admin Trade Name Freq PRN Reason Stop Dose Admin Cefuroxime Axetil 500 mg 11/18/22 00:07 11/18/22 00:39 Cefuroxime Axetil 500 Mg Tablet PO 11/18/22 00:08 500 mg ONCE ONE Administration Magnesium Sulfate/Dextrose 1 gm in 100 mls @ 300 mls/hr 11/17/22 22:02 11/17/22 23:18 Magnesium Sulfate/D5w IV 11/17/22 22:21 Infused ONCE ONE Infusion Sodium Chloride 1,000 mls @ 999 mls/hr 11/17/22 22:18 11/18/22 00:39 Ns IV 11/17/22 23:18 Infused .Q1H1M ONE Infusion <HINA Will - Last Filed: 11/17/22 20:16> Medications Administered Discontinued Medications Generic Name Dose Route Start Last Admin Trade Name Freq PRN Reason Stop Dose Admin Cefuroxime Axetil 500 mg 11/18/22 00:07 11/18/22 00:39 Cefuroxime Axetil 500 Mg Tablet PO 11/18/22 00:08 500 mg ONCE ONE Administration Magnesium Sulfate/Dextrose 1 gm in 100 mls @ 300 mls/hr 11/17/22 22:02 11/17/22 23:18 Magnesium Sulfate/D5w IV 11/17/22 22:21 Infused ONCE ONE Infusion Sodium Chloride 1,000 mls @ 999 mls/hr 11/17/22 22:18 11/18/22 00:39 Ns IV 11/17/22 23:18 Infused .Q1H1M ONE Infusion <Barron Medina MD - Last Filed: 11/18/22 00:56> Medical Decision Making Differential Diagnosis Differential Diagnoses: The differential diagnosis associated with the presentation includes (Worsening of dementia, UTI, electrolyte disturbance, dehydration, stroke.) <Barron Medina MD - Last Filed: 11/18/22 00:56> Lab Data MDM Lab Attestation statement: I reviewed the patient's lab results. <Barron Medina MD - Last Filed: 11/18/22 00:56> Result Diagrams: 11/17/22 20:37 11/17/22 20:37 <HINA Will - Last Filed: 11/17/22 20:16> Labs: Lab Results 11/17/22 11/17/22 11/17/22 Range/Units 20:37 20:37 20:37 WBC 9.0 (4.8-10.8) X10*3/uL RBC 3.90 L (4.20-5.50) X10*6/uL Hgb 11.9 L (12.0-16.0) g/dl Hct 36.5 L (37.0-47.0) % MCV 93.6 (80.0-98.0) fL MCH 30.5 (27.0-33.0) pg MCHC 32.6 (31.0-35.0) g/dl RDW 13.0 (11.0-16.0) % Plt Count 237 (160-400) X10*3/uL MPV 10.5 (9.4-12.3) fL Immature Gran % (Auto) 0.2 (0.0-0.4) % Neut % (Auto) 63.7 (45-73) % Lymph % (Auto) 26.1 (20-40) % [place] % (Auto) 7.3 (2-11) % Eos % (Auto) 2.0 (0-4) % Baso % (Auto) 0.7 (0-2) % Lymph # (Auto) 2.4 (1.2-4.9) X10*3/uL [place] # (Auto) 0.7 (0.1-1.2) X10*3/uL Eos # (Auto) 0.2 (0.0-0.4) X10*3/uL Baso # (Auto) 0.1 (0.0-0.2) X10*3/uL Abs Immat Gran (auto) 0.02 (0.00-0.03) X10*3/uL Absolute Neuts (auto) 5.7 (2.0-8.3) x10*3/uL Absolute Nucleated RBC 0.000 (0.0-0.012) X10*3/uL Nucleated RBC % (auto) 0.0 (0.0-0.2) /100WBC PT 12.1 (10.0-13.1) SEC INR 1.1 (0.9-1.1) Sodium 142 (135-145) mmol/L Potassium 4.3 (3.3-5.1) mmol/L Chloride 104 (96-108) mmol/L Carbon Dioxide 28 (22-29) mmol/L Anion Gap 14 (12-20) BUN 23 H (9-16) mg/dL Creatinine 1.03 (0.5-1.4) mg/dL Estim Creat Clear Calc 41.6 Estimated GFR 52 Random Glucose 126 H (60-115) mg/dL Calcium 9.3 (8.4-10.2) mg/dL Magnesium 1.3 L* (1.6-2.6) mg/dL Total Bilirubin 0.4 (0.0-1.0) mg/dL Direct Bilirubin < 0.2 (0.0-0.5) mg/dL AST 17 (5-31) U/L ALT 13 (0-31) U/L Alkaline Phosphatase 58 (39-117) U/L Troponin I High Sens (<3.5-17.0) ng/L Total Protein 6.8 (6.5-8.0) g/dL Albumin 4.1 (3.5-5.0) g/dL Lipase 11 (8-78) U/L Urine Color Urine Appearance Urine pH (5.0-9.0) Ur Specific [place] (1.005-1.025) Urine Protein (Neg-Trace) mg/dL Urine Glucose (UA) (Negative) mg/dL Urine Ketones (Negative) mg/dL Urine Blood (Negative) Urine Nitrite (Negative) Ur Leukocyte Esterase (Negative) Urine RBC (0-2) /HPF Urine WBC (0-5) /HPF Ur Squamous Epith Cells (0-2) /HPF Urine Bacteria (None Seen) Hyaline Casts (0-2) /LPF Influenza Type A (PCR) (Negative) Influenza Type B (PCR) (Negative) RSV RNA Qual (PCR) (Negative) SARS-CoV-2 RNA (RT-PCR) (Negative) 11/17/22 11/17/22 11/17/22 Range/Units 20:37 20:37 23:43 WBC (4.8-10.8) X10*3/uL RBC (4.20-5.50) X10*6/uL Hgb (12.0-16.0) g/dl Hct (37.0-47.0) % MCV (80.0-98.0) fL MCH (27.0-33.0) pg MCHC (31.0-35.0) g/dl RDW (11.0-16.0) % Plt Count (160-400) X10*3/uL MPV (9.4-12.3) fL Immature Gran % (Auto) (0.0-0.4) % Neut % (Auto) (45-73) % Lymph % (Auto) (20-40) % [place] % (Auto) (2-11) % Eos % (Auto) (0-4) % Baso % (Auto) (0-2) % Lymph # (Auto) (1.2-4.9) X10*3/uL [place] # (Auto) (0.1-1.2) X10*3/uL Eos # (Auto) (0.0-0.4) X10*3/uL Baso # (Auto) (0.0-0.2) X10*3/uL Abs Immat Gran (auto) (0.00-0.03) X10*3/uL Absolute Neuts (auto) (2.0-8.3) x10*3/uL Absolute Nucleated RBC (0.0-0.012) X10*3/uL Nucleated RBC % (auto) (0.0-0.2) /100WBC PT (10.0-13.1) SEC INR (0.9-1.1) Sodium (135-145) mmol/L Potassium (3.3-5.1) mmol/L Chloride (96-108) mmol/L Carbon Dioxide (22-29) mmol/L Anion Gap (12-20) BUN (9-16) mg/dL Creatinine (0.5-1.4) mg/dL Estim Creat Clear Calc Estimated GFR Random Glucose (60-115) mg/dL Calcium (8.4-10.2) mg/dL Magnesium (1.6-2.6) mg/dL Total Bilirubin (0.0-1.0) mg/dL Direct Bilirubin (0.0-0.5) mg/dL AST (5-31) U/L ALT (0-31) U/L Alkaline Phosphatase (39-117) U/L Troponin I High Sens < 3.5 (<3.5-17.0) ng/L Total Protein (6.5-8.0) g/dL Albumin (3.5-5.0) g/dL Lipase (8-78) U/L Urine Color Yellow Urine Appearance Clear Urine pH 6.5 (5.0-9.0) Ur Specific [place] 1.010 (1.005-1.025) Urine Protein Negative (Neg-Trace) mg/dL Urine Glucose (UA) Negative (Negative) mg/dL Urine Ketones Negative (Negative) mg/dL Urine Blood Negative (Negative) Urine Nitrite Positive H (Negative) Ur Leukocyte Esterase Small (1+) H (Negative) Urine RBC 0-2 (0-2) /HPF Urine WBC 6-10 H (0-5) /HPF Ur Squamous Epith Cells 0-2 (0-2) /HPF Urine Bacteria 4+ (None Seen) Hyaline Casts 0-2 (0-2) /LPF Influenza Type A (PCR) NEGATIVE (Negative) Influenza Type B (PCR) NEGATIVE (Negative) RSV RNA Qual (PCR) NEGATIVE (Negative) SARS-CoV-2 RNA (RT-PCR) NEGATIVE (Negative) <HINA Will - Last Filed: 11/17/22 20:16> Lab Results 11/17/22 11/17/22 11/17/22 Range/Units 20:37 20:37 20:37 WBC 9.0 (4.8-10.8) X10*3/uL RBC 3.90 L (4.20-5.50) X10*6/uL Hgb 11.9 L (12.0-16.0) g/dl Hct 36.5 L (37.0-47.0) % MCV 93.6 (80.0-98.0) fL MCH 30.5 (27.0-33.0) pg MCHC 32.6 (31.0-35.0) g/dl RDW 13.0 (11.0-16.0) % Plt Count 237 (160-400) X10*3/uL MPV 10.5 (9.4-12.3) fL Immature Gran % (Auto) 0.2 (0.0-0.4) % Neut % (Auto) 63.7 (45-73) % Lymph % (Auto) 26.1 (20-40) % [place] % (Auto) 7.3 (2-11) % Eos % (Auto) 2.0 (0-4) % Baso % (Auto) 0.7 (0-2) % Lymph # (Auto) 2.4 (1.2-4.9) X10*3/uL [place] # (Auto) 0.7 (0.1-1.2) X10*3/uL Eos # (Auto) 0.2 (0.0-0.4) X10*3/uL Baso # (Auto) 0.1 (0.0-0.2) X10*3/uL Abs Immat Gran (auto) 0.02 (0.00-0.03) X10*3/uL Absolute Neuts (auto) 5.7 (2.0-8.3) x10*3/uL Absolute Nucleated RBC 0.000 (0.0-0.012) X10*3/uL Nucleated RBC % (auto) 0.0 (0.0-0.2) /100WBC PT 12.1 (10.0-13.1) SEC INR 1.1 (0.9-1.1) Sodium 142 (135-145) mmol/L Potassium 4.3 (3.3-5.1) mmol/L Chloride 104 (96-108) mmol/L Carbon Dioxide 28 (22-29) mmol/L Anion Gap 14 (12-20) BUN 23 H (9-16) mg/dL Creatinine 1.03 (0.5-1.4) mg/dL Estim Creat Clear Calc 41.6 Estimated GFR 52 Random Glucose 126 H (60-115) mg/dL Calcium 9.3 (8.4-10.2) mg/dL Magnesium 1.3 L* (1.6-2.6) mg/dL Total Bilirubin 0.4 (0.0-1.0) mg/dL Direct Bilirubin < 0.2 (0.0-0.5) mg/dL AST 17 (5-31) U/L ALT 13 (0-31) U/L Alkaline Phosphatase 58 (39-117) U/L Troponin I High Sens (<3.5-17.0) ng/L Total Protein 6.8 (6.5-8.0) g/dL Albumin 4.1 (3.5-5.0) g/dL Lipase 11 (8-78) U/L Urine Color Urine Appearance Urine pH (5.0-9.0) Ur Specific [place] (1.005-1.025) Urine Protein (Neg-Trace) mg/dL Urine Glucose (UA) (Negative) mg/dL Urine Ketones (Negative) mg/dL Urine Blood (Negative) Urine Nitrite (Negative) Ur Leukocyte Esterase (Negative) Urine RBC (0-2) /HPF Urine WBC (0-5) /HPF Ur Squamous Epith Cells (0-2) /HPF Urine Bacteria (None Seen) Hyaline Casts (0-2) /LPF Influenza Type A (PCR) (Negative) Influenza Type B (PCR) (Negative) RSV RNA Qual (PCR) (Negative) SARS-CoV-2 RNA (RT-PCR) (Negative) 11/17/22 11/17/22 11/17/22 Range/Units 20:37 20:37 23:43 WBC (4.8-10.8) X10*3/uL RBC (4.20-5.50) X10*6/uL Hgb (12.0-16.0) g/dl Hct (37.0-47.0) % MCV (80.0-98.0) fL MCH (27.0-33.0) pg MCHC (31.0-35.0) g/dl RDW (11.0-16.0) % Plt Count (160-400) X10*3/uL MPV (9.4-12.3) fL Immature Gran % (Auto) (0.0-0.4) % Neut % (Auto) (45-73) % Lymph % (Auto) (20-40) % [place] % (Auto) (2-11) % Eos % (Auto) (0-4) % Baso % (Auto) (0-2) % Lymph # (Auto) (1.2-4.9) X10*3/uL [place] # (Auto) (0.1-1.2) X10*3/uL Eos # (Auto) (0.0-0.4) X10*3/uL Baso # (Auto) (0.0-0.2) X10*3/uL Abs Immat Gran (auto) (0.00-0.03) X10*3/uL Absolute Neuts (auto) (2.0-8.3) x10*3/uL Absolute Nucleated RBC (0.0-0.012) X10*3/uL Nucleated RBC % (auto) (0.0-0.2) /100WBC PT (10.0-13.1) SEC INR (0.9-1.1) Sodium (135-145) mmol/L Potassium (3.3-5.1) mmol/L Chloride (96-108) mmol/L Carbon Dioxide (22-29) mmol/L Anion Gap (12-20) BUN (9-16) mg/dL Creatinine (0.5-1.4) mg/dL Estim Creat Clear Calc Estimated GFR Random Glucose (60-115) mg/dL Calcium (8.4-10.2) mg/dL Magnesium (1.6-2.6) mg/dL Total Bilirubin (0.0-1.0) mg/dL Direct Bilirubin (0.0-0.5) mg/dL AST (5-31) U/L ALT (0-31) U/L Alkaline Phosphatase (39-117) U/L Troponin I High Sens < 3.5 (<3.5-17.0) ng/L Total Protein (6.5-8.0) g/dL Albumin (3.5-5.0) g/dL Lipase (8-78) U/L Urine Color Yellow Urine Appearance Clear Urine pH 6.5 (5.0-9.0) Ur Specific [place] 1.010 (1.005-1.025) Urine Protein Negative (Neg-Trace) mg/dL Urine Glucose (UA) Negative (Negative) mg/dL Urine Ketones Negative (Negative) mg/dL Urine Blood Negative (Negative) Urine Nitrite Positive H (Negative) Ur Leukocyte Esterase Small (1+) H (Negative) Urine RBC 0-2 (0-2) /HPF Urine WBC 6-10 H (0-5) /HPF Ur Squamous Epith Cells 0-2 (0-2) /HPF Urine Bacteria 4+ (None Seen) Hyaline Casts 0-2 (0-2) /LPF Influenza Type A (PCR) NEGATIVE (Negative) Influenza Type B (PCR) NEGATIVE (Negative) RSV RNA Qual (PCR) NEGATIVE (Negative) SARS-CoV-2 RNA (RT-PCR) NEGATIVE (Negative) <Barron Medina MD - Last Filed: 11/18/22 00:56> Independent Interpretation I performed an independent interpretation of an: Plain X-Ray (Chest: No acute intrathoracic pathology.) and CT Scan (Head: No acute intra cranial pathology.) <Barron Medina MD - Last Filed: 11/18/22 00:56> Radiology Impression Discussion of test interpretation with radiology: I have reviewed the radiologist's reading. <Barron Medina MD - Last Filed: 11/18/22 00:56> Discharge Plan Discharge Clinical Impression: Dementia, Acute UTI, Hypomagnesemia <HINA Will - Last Filed: 11/17/22 20:16> Patient Disposition: Home, Self-Care <HINA Will - Last Filed: 11/17/22 20:16> Instructions: Urinary Tract Infection in Older Adults (ED) <HINA Will - Last Filed: 11/17/22 20:16> Prescriptions: New cefuroxime axetil 500 mg tablet 500 mg PO BID Qty: 14 0RF No Action metformin 500 mg tablet 500 mg PO BID memantine 5 mg tablet 5 mg PO BID amlodipine 10 mg tablet 10 mg PO DAILY risperidone 0.5 mg tablet 0.5 mg PO BID <HINA Will - Last Filed: 11/17/22 20:16> Referrals: Aimee Adrian MD [Primary Care Provider] - <HINA Will - Last Filed: 11/17/22 20:16>
--- NOTE | 2022-11-17 20:12 | ECG_ITS ---
Test Reason : AMS Blood Pressure : / mmHG Vent. Rate : 058 BPM Atrial Rate : 000 BPM P-R Int : 000 ms QRS Dur : 072 ms QT Int : 402 ms P-R-T Axes : 000 013 026 degrees QTc Int : 394 ms Sinus bradycardia Septal infarct , age undetermined Abnormal ECG When compared with ECG of 07-MAY-2021 03:24, Septal infarct is now Present Criteria for Inferior infarct are no longer Present QT has shortened Referred By: Daja Hayward Electronically Signed By:Escobar Crenshaw
[2022-11-17 20:46] LABS: MANUAL DIFF FLAG NO
[2022-11-17 20:48] LABS: Basophils Absolute Auto 0.1 X10*3/uL (0.0-0.2); Basophils Percent Auto 0.7 % (0-2); Eosinophils Absolute Auto 0.2 X10*3/uL (0.0-0.4); Hematocrit 36.5 % (37.0-47.0); Hemoglobin 11.9 g/dl (12.0-16.0); Imm Gran Abs Auto 0.02 X10*3/uL (0.00-0.03); Imm Gran Pct Auto 0.2 % (0.0-0.4); Lymphocytes Absolute Auto 2.4 X10*3/uL (1.2-4.9); Lymphocytes Percent Auto 26.1 % (20-40); Mean Corpuscular HGB Conc 32.6 g/dl (31.0-35.0); Mean Corpuscular Hemoglobin 30.5 pg (27.0-33.0); Mean Corpuscular Volume 93.6 fL (80.0-98.0); Mean Platelet Volume 10.5 fL (9.4-12.3); Monocytes Absolute Auto 0.7 X10*3/uL (0.1-1.2); Monocytes Percent Auto 7.3 % (2-11); Neutrophils Absolute Auto 5.7 x10*3/uL (2.0-8.3); Neutrophils Percent Auto 63.7 % (45-73); Platelet Count 237 X10*3/uL (160-400)
[2022-11-17 20:53] LABS: INTERNATIONAL NORM RATIO 1.1 (0.9-1.1); Prothrombin Time 12.1 SEC (10.0-13.1)
[2022-11-17 21:15] LABS: Troponin-I High Sensitivity < 3.5 ng/L (<3.5-17.0)
[2022-11-17 21:29] LABS: Alanine Aminotransferase 13 U/L (0-31); Albumin Level 4.1 g/dL (3.5-5.0); Alkaline Phosphatase 58 U/L (39-117); Anion Gap 14 (12-20); Aspartate Amino Transferase 17 U/L (5-31); Bilirubin Direct < 0.2 mg/dL (0.0-0.5); Bilirubin Total 0.4 mg/dL (0.0-1.0); Blood Urea Nitrogen 23 mg/dL (9-16); Calcium 9.3 mg/dL (8.4-10.2); Carbon Dioxide 28 mmol/L (22-29); Chloride 104 mmol/L (96-108); Creatinine Clr Calc Pharmacy 41.6; Estimated Glomerular Filt Rate 52; Glucose Random 126 mg/dL (60-115); Lipase 11 U/L (8-78); Magnesium 1.3 mg/dL (1.6-2.6); Potassium 4.3 mmol/L (3.3-5.1); Sodium 142 mmol/L (135-145); Total Protein 6.8 g/dL (6.5-8.0)
[2022-11-17 21:30] LABS: Influenza A PCR NEGATIVE (Negative); Influenza B PCR NEGATIVE (Negative); Resp Syncy Virus RNA Qual PCR NEGATIVE (Negative); SARS COV2 PCR INHOUSE NEGATIVE (Negative)
[2022-11-17 22:00] VITALS: BP 110/62; PULSE 65; RESP 16; TEMP 36.7; O2SAT 97
[2022-11-17] MEDS: 0.9 % Sodium Chloride 1,000 ML 999 ML IV (22:22)
[2022-11-17] MEDS: Magnesium Sulfate/D5W 1 GM/100 ML PIGGYBACK IV (22:22)
[2022-11-17 23:55] LABS: Appearance Urine Clear; Color Urine Yellow; Glucose Urine UA Negative (Negative); Leukocyte Esterase Urine Small (1+) (Negative); Nitrite Urine Positive (Negative); PH 6.5 (5.0-9.0); UMIC TRIGGER UACC YES; Urine Blood Negative (Negative); Urine Ketones Negative (Negative); Urine Protein Negative (Neg-Trace)
[2022-11-18 00:01] LABS: Bacteria Urine 4+ (None Seen); Hyaline Casts Urine 0-2 /LPF (0-2); RBC Urine 0-2 /HPF (0-2); Squamous Epithelial Cell Urine 0-2 /HPF (0-2); UACC Culture Trigger YES
[2022-11-18 00:15] VITALS: BP 128/62; PULSE 62; RESP 14; O2SAT 96
--- NOTE | 2022-11-18 00:25 | PC.NURSE ---
late entry- this rn and tech attempted to place straight catheter per dr shannon order. unable to get urine return. this rn performed bladder scan at this time, bladder scan showed 40ml of urine in bladder. this rn discussed with dr shannon. will allow more iv fluids to run before attempting straight catheter. md agreeable to plan
--- NOTE | 2022-11-18 00:27 | PC.NURSE ---
late entry-pt able to verbalize to this rn that she needed to use restroom. this rn placed pt on bedpan. pt tolerated well. rn able to obtain urine at this time. sent down to lab.
--- NOTE | 2022-11-18 01:15 | PC.NURSE ---
this rn removed iv at time of discharge. pt ambulatory at this time. pt sister at bedside at this time. pt sister provided with discharge packet pt sister verbalized understanding of discharge plan
== END 2022-11-18 01:17 | disposition home or self-care (01) ==
PROVIDERS: Physician Assistant; Emergency Provider Emergency Medicine; PCP Internal Medicine
DX: F03.90 Unspecified dementia, unspecified severity, without behavioral disturbance, psychotic disturbance, mood disturbance, and anxiety (principal); N39.0 Urinary tract infection, site not specified; B96.20 Unspecified Escherichia coli [E. coli] as the cause of diseases classified elsewhere; E83.42 Hypomagnesemia; E11.22 Type 2 diabetes mellitus with diabetic chronic kidney disease; I12.9 Hypertensive chronic kidney disease with stage 1 through stage 4 chronic kidney disease, or unspecified chronic kidney disease; N18.9 Chronic kidney disease, unspecified; Z20.822 Contact with and (suspected) exposure to COVID-19; Z20.828 Contact with and (suspected) exposure to other viral communicable diseases
CPT/HCPCS: 0241U; 36415; 51798; 70450; 71045; 80048; 80076; 81001; 83690; 83735; 84484; 85025; 85610; 87086; 87088; 87186; 93005; 96361; 96374; 99284; J3475

== ENCOUNTER 2022-12-22 11:35 | Emergency (ER) | payer MEDICARE, MEDICAID, SELFPAY ==
--- NOTE | ~2022-12-22 | XR_ITS ---
EXAMINATION: XR FOOT, LEFT CLINICAL INFORMATION: Bruising. Fall. COMPARISON: Previous x-ray from 2009 TECHNIQUE: AP, lateral, and oblique views of the left foot. FINDINGS: No acute fracture or dislocation. Orthopedic hardware in the distal fibula and medial malleolus. Normal joint spaces. Calcaneal spur. Soft tissue arterial calcification. XR/XR foot LT min 3V IMPRESSION: No acute fracture or dislocation.
--- NOTE | ~2022-12-22 | CT_ITS ---
EXAMINATION: CT HEAD WITHOUT CONTRAST CT CERVICAL SPINE WITHOUT CONTRAST CLINICAL INFORMATION: Fall. Head strike. COMPARISON: CT head 11/17/2022 TECHNIQUE: Imaging was performed from the skull base to vertex without intravenous administration of contrast. In addition, helical noncontrast CT imaging was acquired through the cervical spine and source images were reviewed along with axial reconstructions and sagittal and coronal MPRs. [This CT examination was performed using dose optimization techniques as appropriate, variously including the following: *Automated exposure control *Adjustment of mA and/or kV according to patient size (this includes techniques or standardized protocols for targeted exams where dose is matched to indication/reason for exam; i.e. extremities or head) *Use of iterative reconstruction technique] DLP: 868 mGy-cm FINDINGS: HEAD: No intracranial mass, hemorrhage, or midline shift is visualized. There is generalized global volume loss. There is moderate prominence of the ventricles and the sulci . There is mild hypodensity of the periventricular white matter due to chronic small vessel ischemic disease. There are vascular calcifications of the internal carotid arteries bilaterally. No extra-axial collections are identified. The paranasal sinuses and mastoid air cells are well aerated. CERVICAL SPINE: There is no evidence of acute cervical spine fracture. Vertebral bodies remain normal in height. Cervical vertebrae have normal alignment. There is multilevel degenerative spondylosis of the cervical spine with disc height narrowing and endplate spurs and facet joint arthrosis The thyroid gland is not enlarged but is heterogeneous in density. Largest hypodense nodule measuring 0.8 cm right lobe of thyroid. No imaging follow-up recommended. Limited assessment of the lung apices is unremarkable. Vascular calcification of carotid arteries. CT/CT cervical spine wo IV con IMPRESSION: 1. No acute intracranial pathology. 2. No CT evidence of acute cervical spine fracture or traumatic subluxation
--- NOTE | ~2022-12-22 | XR_ITS ---
EXAMINATION: XR PELVIS WITH HIP, LEFT CLINICAL INFORMATION: Fall, trauma, pain COMPARISON: CT abdomen and pelvis 12/03/2021 TECHNIQUE: AP view pelvis is performed along with AP and frog-lateral projections of the left hip for a total of 3 views. FINDINGS: No fracture or dislocation. No diastases SI joints or pubis. There is whiskering at the lateral aspect bilateral iliac crests again seen. There is mild spurring at the caudal aspect both greater trochanters. Bowel gas unremarkable. There are atherosclerotic calcifications iliac and femoral arteries. XR/XR hip LT w PEL1V IMPRESSION: No fracture or dislocation.
--- NOTE | 2022-12-22 11:58 | ED.FALL ---
HPI - Fall General Chief Complaint: Fall <HINA Perry Last Filed: 12/22/22 12:05> Stated Complaint: Alzheimers Fall X 2 12/20/22 <HINA Perry - Last Filed: 12/22/22 12:05> Time Seen by Provider: 12/22/22 16:56 <HINA Perry Last Filed: 12/22/22 12:05> Source: patient and family (sister) <HINA Malhotra Last Filed: 12/23/22 08:27> Mode of arrival: ambulatory <HINA Malhotra Last Filed: 12/23/22 08:27> Limitations: physical limitation (patient is confused at baseline) <HINA Malhotra Last Filed: 12/23/22 08:27> History of Present Illness HPI Narrative: Patient is a 72 year old assigned female at with a history of dementia presenting to the emergency department today with weakness and multiple falls. Patient's daughter states that since last week the patient has had 3 falls. Patient's daughter states that the patient wasn't falling much before that but then fell 3 times in a row. Patient's daughter states that the patient has been eating less lately. Patient denies any dizziness, lightheadedness, abdominal pain, nausea, vomiting, fever, chills, blurry vision, double vision, loss of vision, chest pain, difficulty breathing, shortness of breath, back pain, night sweats, pain with urination, increased urinary frequency, increased urinary urgency, blood in her urine or stool, syncope or a near syncopal episode, bowel incontinence, bladder incontinence, bowel retention, bladder retention, or any other complaints at this time. <HINA Malhotra - Last Filed: 12/23/22 08:27> MD complaint: fall <HINA Malhotra Last Filed: 12/23/22 08:27> Fall witnessed: yes, by family <HINA Malhotra Last Filed: 12/23/22 08:27> Place fall occurred: home <HINA Malhotra Last Filed: 12/23/22 08:27> Loss of consciousness: none <HINA Malhotra Last Filed: 12/23/22 08:27> Prolonged down time: no <HINA Malhotar Last Filed: 12/23/22 08:27> Symptoms prior to fall: none <HINA Malhotra Last Filed: 12/23/22 08:27> Context: tripped/slipped <HINA Malhotra Last Filed: 12/23/22 08:27> Related Data Home Medications: Home Medications Medication Instructions Recorded Confirmed amlodipine 10 mg tablet 10 mg PO DAILY 01/08/21 02/06/22 memantine 5 mg tablet 5 mg PO BID 01/08/21 02/06/22 metformin 500 mg tablet 500 mg PO BID 01/08/21 02/06/22 risperidone 0.5 mg tablet 0.5 mg PO BID 01/08/21 02/06/22 Previous Rx's Medication Instructions Recorded cefuroxime axetil 500 mg tablet 500 mg PO BID #14 tabs 11/18/22 cephalexin 500 mg capsule 500 mg PO Q6H 7 days #28 caps 12/22/22 <HINA Perry Last Filed: 12/22/22 12:05> Allergies/Adverse Reactions: Allergies Allergy/AdvReac Type Severity Reaction Status Date / Time penicillin G procaine Allergy Unknown Verified 12/22/22 12:08 <HINA Perry Last Filed: 12/22/22 12:05> Review of Systems Constitutional: Constitutional: Reports no additional constitutional complaints, Denies chills, Denies fever(s) and Denies night sweats <HINA Malhotra Last Filed: 12/23/22 08:27> Eyes: Eyes: Reports no additional eye complaints, Denies blurry vision, Denies change in vision, Denies diplopia, Denies eye discharge, Denies loss of vision and Denies eye pain <HINA Malhotra Last Filed: 12/23/22 08:27> ENT: Denies dizziness <HINA Malhotra Last Filed: 12/23/22 08:27> Cardiovascular: Cardiovascular: Reports no additional cardiovascular complaints, Denies chest pain, Denies lightheadedness, Denies Loss of Consciousness and Denies dyspnea <HINA Malhotra Last Filed: 12/23/22 08:27> Respiratory: Respiratory: Reports no additional respiratory complaints and Denies dyspnea <HINA Malhotra - Last Filed: 12/23/22 08:27> Gastrointestinal: Gastrointestinal: Reports no additional gastrointestinal complaints, Denies abdominal pain, Denies melena, Denies hematochezia, Denies change in bowel habits and Denies change in stool character <HINA Malhotra - Last Filed: 12/23/22 08:27> Genitourinary: Genitourinary: Denies hematuria, Denies urinary frequency, Denies dysuria, Denies urinary incontinence, Denies urinary hesitancy and Denies urinary urgency <HINA Malhotra - Last Filed: 12/23/22 08:27> Musculoskeletal: Musculoskeletal: Reports no additional musculoskeletal complaints, Denies numbness and Denies tingling <HINA Malhotra - Last Filed: 12/23/22 08:27> Neurologic: Reports confusion (consistent with baseline), Denies dizziness, Denies loss of vision, Denies numbness and Denies tingling <HINA Malhotra - Last Filed: 12/23/22 08:27> Psychiatric: Psychiatric: Reports no additional psychiatric complaints and Reports confusion (consistent with baseline) <HINA Malhotra - Last Filed: 12/23/22 08:27> Endocrine: Endocrine: Reports no additional endocrine complaints <HINA Malhotra - Last Filed: 12/23/22 08:27> Hematologic/Lymphatic: Hematologic/Lymphatic: Reports no additional hematologic/lymphatic complaints <HINA Malhotra - Last Filed: 12/23/22 08:27> Allergic/Immunologic: Allergic/Immunologic: Reports no additional allergic/immunologic complaints <HINA Malhotra - Last Filed: 12/23/22 08:27> [facility] Past Medical History Attestation statement: The following information was validated with the patient. (all information was validated with the patient's daughter) <HINA Malhotra - Last Filed: 12/23/22 08:27> Source: old records reviewed, obtained from family (patient's daughter) and nursing notes reviewed <HINA Malhotra - Last Filed: 12/23/22 08:27> Medical History: Medical History Dementia Diabetes Pancreatic lesion Tubular adenoma of colon <HINA Perry - Last Filed: 12/22/22 12:05> Surgical History: Surgical History H/O prior ablation treatment <HINA Perry - Last Filed: 12/22/22 12:05> Social History Social History: Social History Alcohol intake: unknown Patient Tobacco Use Status: Never used Tobacco Smoked in Last 30 Days: No Use of substances other than those prescribed or required for medical reasons: Unknown Advance Directives: Yes Advance Directives Information Provided: No Advance Directives on File: No <HINA Perry - Last Filed: 12/22/22 12:05> Physical Exam Vital Signs: Vital Signs: Last Vital Signs Temp 98.3 F 12/22/22 17:45 Pulse 62 12/22/22 18:30 Resp 18 12/22/22 18:30 BP 139/73 12/22/22 18:30 Pulse Ox 97 12/22/22 18:30 O2 Del Method 12/22/22 18:30 BMI result Body Mass Index 22.6 <HINA Perry - Last Filed: 12/22/22 12:05> Vital Signs: Last Vital Signs Temp 98.3 F 12/22/22 17:45 Pulse 62 12/22/22 18:30 Resp 18 12/22/22 18:30 BP 139/73 12/22/22 18:30 Pulse Ox 97 12/22/22 18:30 O2 Del Method 12/22/22 18:30 BMI result Body Mass Index 22.6 <HINA Malhotra - Last Filed: 12/23/22 08:27> Const: General: confusion (consistent with baseline) <HINA Malhotra - Last Filed: 12/23/22 08:27> Nutritional Appearance: well nourished <HINA Malhotra - Last Filed: 12/23/22 08:27> Orientation/consciousness: confusion (consistent with baseline) <HINA Malhotra - Last Filed: 12/23/22 08:27> Limitations: no limitations <HINA Malhotra - Last Filed: 12/23/22 08:27> HEENT: Head: Yes normal to inspection and Yes atraumatic <Abimbola HINA Soto - Last Filed: 12/23/22 08:27> Ears: hearing grossly normal bilaterally and external ears normal <Abimbolainna HallHINA kearns - Last Filed: 12/23/22 08:27> General nose exam: Normal external nose present, no nasal discharge noted and no epistaxis <HINA Malhotra - Last Filed: 12/23/22 08:27> Face and sinus: Yes normal facial exam, No abrasion and No laceration <Abimbolainna Hallsom PA - Last Filed: 12/23/22 08:27> Mouth: Normal oral and palatal mucosa present, no drooling and no muffled voice <Abimbola Soto PA - Last Filed: 12/23/22 08:27> Eyes: General: appearance normal, both eyes and all related structures <HINA Malhotra - Last Filed: 12/23/22 08:27> Periorbital: periorbital findings normal <HINA Malhotra - Last Filed: 12/23/22 08:27> Eyelids: Yes eyelids normal <Abimbola Soto PA - Last Filed: 12/23/22 08:27> Conjunctivae: conjunctivae normal <HINA Malhotra - Last Filed: 12/23/22 08:27> Pupils: Equal, round and reactive pupils present <Abimbola Soto PA - Last Filed: 12/23/22 08:27> EOM: EOMs intact bilaterally <HINA Malhotra - Last Filed: 12/23/22 08:27> Neck: Neck: Yes normal visual inspection, Yes full ROM and Yes no lymphadenopathy <Abimbola Soto PA - Last Filed: 12/23/22 08:27> Chest: Chest palpation & inspection: normal inspection of the chest <HINA Malhotra - Last Filed: 12/23/22 08:27> Resp: Effort & Inspection: normal respiratory effort and able to speak in complete sentences <HINA Malhotra - Last Filed: 12/23/22 08:27> Auscultation: clear to auscultation bilaterally <HINA Malhotra - Last Filed: 12/23/22 08:27> Cardio: Rate: regular rate <Abimbola Soto PA - Last Filed: 12/23/22 08:27> Rhythm: regular rhythm <Abimbola Soto PA - Last Filed: 12/23/22 08:27> GI: Inspection: Yes normal to inspection <Abimbola Soto PA - Last Filed: 12/23/22 08:27> Skin: Other: bruising to the left buttock <Abimbola Soto PA - Last Filed: 12/23/22 08:27> Neuro: General: confusion (consistent with baseline) <Abimbola Soto PA - Last Filed: 12/23/22 08:27> Cranial nerves: Yes Equal, round and reactive pupils present <Abimbola Soto PA - Last Filed: 12/23/22 08:27> Cognition (Neuro): normal cognition <Abimbola Soto PA - Last Filed: 12/23/22 08:27> Motor exam (neuro): 5/5 motor strength present throughout <Abimbola Soto PA - Last Filed: 12/23/22 08:27> Sensory Exam: Normal double simultaneous stimulation for sensation <Abimbola Soto PA - Last Filed: 12/23/22 08:27> Coordination: [id number] test normal <Abimbola Soto PA - Last Filed: 12/23/22 08:27> Extrem: General: Yes normal to inspection, Yes full ROM and Yes capillary refill normal <Abimbola Soto PA - Last Filed: 12/23/22 08:27> Psych: Appearance: grossly normal <Abimbola Hallsom PA - Last Filed: 12/23/22 08:27> Mental Status: mental status grossly normal <Abimbola Hallsom PA - Last Filed: 12/23/22 08:27> Affect: normal affect <Abimbolainna HallHINA kearns - Last Filed: 12/23/22 08:27> Attitude: cooperative <Abimbolainna Hallsom PA - Last Filed: 12/23/22 08:27> Thought process: Normal thought process present <Abimbola HINA Soto - Last Filed: 12/23/22 08:27> Thought content: Normal thought content present <HINA Malhotra - Last Filed: 12/23/22 08:27> Insight: Good insight present (Psych) <HINA Malhotra - Last Filed: 12/23/22 08:27> Course Course Course Narrative: RME - 72 yo female with history of Alzheimer's dementia, diabetes who presents to the ER for evaluation of 3 falls over the weekend. Having hallucinations today which are new. Hx UTI about a month ago. Sister in triage reports a bruise and redness to left hip, left foot and she hit her head w/ the falls on Thursday. Not on anticoagulation. VSS in triage. Will get imaging, labs, UA, EKG given weakness. Stable to go to waiting room until treatment room is available. <HINA Perry - Last Filed: 12/22/22 12:05> Medications Administered Discontinued Medications Generic Name Dose Route Start Last Admin Trade Name Freq PRN Reason Stop Dose Admin Fentanyl 25 mcg 12/22/22 17:10 12/22/22 17:29 Fentanyl Citrate/Pf 100 Mcg/2 Ml Vial IVPUSH 12/22/22 17:11 25 mcg ONCE ONE Administration Protocol Magnesium Sulfate 2 gm in 50 mls @ 25 mls/hr 12/22/22 17:10 12/22/22 18:30 Magnesium Sulfate/H2o IV 12/22/22 19:09 Infused ONCE ONE Infusion Sodium Chloride 1,000 mls @ 999 mls/hr 12/22/22 17:15 12/22/22 19:07 Ns IV 12/22/22 18:15 Infused .Q1H1M ROSALIE Infusion Ceftriaxone Sodium 1 gm/ 50 mls @ 100 mls/hr 12/22/22 18:08 12/22/22 19:07 Sodium Chloride IV 12/22/22 18:37 Infused ONCE ONE Infusion <HINA Perry - Last Filed: 12/22/22 12:05> Medications Administered Discontinued Medications Generic Name Dose Route Start Last Admin Trade Name Freq PRN Reason Stop Dose Admin Fentanyl 25 mcg 12/22/22 17:10 12/22/22 17:29 Fentanyl Citrate/Pf 100 Mcg/2 Ml Vial IVPUSH 12/22/22 17:11 25 mcg ONCE ONE Administration Protocol Magnesium Sulfate 2 gm in 50 mls @ 25 mls/hr 12/22/22 17:10 12/22/22 18:30 Magnesium Sulfate/H2o IV 12/22/22 19:09 Infused ONCE ONE Infusion Sodium Chloride 1,000 mls @ 999 mls/hr 12/22/22 17:15 12/22/22 19:07 Ns IV 12/22/22 18:15 Infused .Q1H1M ROSALIE Infusion Ceftriaxone Sodium 1 gm/ 50 mls @ 100 mls/hr 12/22/22 18:08 12/22/22 19:07 Sodium Chloride IV 12/22/22 18:37 Infused ONCE ONE Infusion <HINA Malhotra - Last Filed: 12/23/22 08:27> Medical Decision Making Medical Decision Making [facility] Narrative: Patient is a 72 year old assigned female at with a history of dementia presenting to the emergency department today after multiple falls with a possible urinary tract infection. Patient's physical exam showed mild bruising to the left buttock but was otherwise unremarkable. Patient's blood work showed a slightly decreased mag of 1.4. Patient's urine showed a probable urinary tract infection as it was almost identical to her last urine specimen which grew out E. Coli on the culture. Patient's EKG was unremarkable. Patient's hip/pelvis and left foot x-rays showed no acute process. Patient's head and c-spine CTs showed no acute process. I explained my physical exam findings as well as all test results to the patient and the patient's daughter. I answered all questions asked by the patient and the patient's daughter. I stressed the importance of the patient taking her medication as prescribed. I stressed the importance of the patient following up with her primary care provider. I stressed the importance of the patient returning to the emergency department immediately if her symptoms were to worsen or if she were to develop any dizziness, shortness of breath, difficulty breathing, chest pain, blurry vision, loss of vision, nausea, vomiting, abdominal pain, fever, chills, back pain, or any other complaints. Patient and the patient's daughter verbalized agreement and understanding with this treatment plan and discharge. <HINA Malhotra - Last Filed: 12/23/22 08:27> Differential Diagnosis Differential Diagnoses: The differential diagnosis associated with the presentation includes <HINA Malhotra - Last Filed: 12/23/22 08:27> dementia, frequent falls, failure to thrive <HINA Malhotra - Last Filed: 12/23/22 08:27> Lab Data [facility] Lab Attestation statement: I reviewed the patient's lab results. <HINA Malhotra - Last Filed: 12/23/22 08:27> Result Diagrams: 12/22/22 12:54 12/22/22 12:54 <HINA Perry - Last Filed: 12/22/22 12:05> Labs: Lab Results 12/22/22 12/22/22 12/22/22 Range/Units 12:54 12:54 12:54 WBC 9.8 (4.8-10.8) X10*3/uL RBC 3.79 L (4.20-5.50) X10*6/uL Hgb 11.6 L (12.0-16.0) g/dl Hct 35.2 L (37.0-47.0) % MCV 92.9 (80.0-98.0) fL MCH 30.6 (27.0-33.0) pg MCHC 33.0 (31.0-35.0) g/dl RDW 12.9 (11.0-16.0) % Plt Count 219 (160-400) X10*3/uL MPV 10.2 (9.4-12.3) fL Immature Gran % (Auto) 0.4 (0.0-0.4) % Neut % (Auto) 72.9 (45-73) % Lymph % (Auto) 17.8 L (20-40) % Randall % (Auto) 6.7 (2-11) % Eos % (Auto) 1.4 (0-4) % Baso % (Auto) 0.8 (0-2) % Lymph # (Auto) 1.7 (1.2-4.9) X10*3/uL Randall # (Auto) 0.7 (0.1-1.2) X10*3/uL Eos # (Auto) 0.1 (0.0-0.4) X10*3/uL Baso # (Auto) 0.1 (0.0-0.2) X10*3/uL Abs Immat Gran (auto) 0.04 H (0.00-0.03) X10*3/uL Absolute Neuts (auto) 7.1 (2.0-8.3) x10*3/uL Absolute Nucleated RBC 0.000 (0.0-0.012) X10*3/uL Nucleated RBC % (auto) 0.0 (0.0-0.2) /100WBC Sodium 137 (135-145) mmol/L Potassium 4.6 (3.3-5.1) mmol/L Chloride 99 (96-108) mmol/L Carbon Dioxide 28 (22-29) mmol/L Anion Gap 15 (12-20) BUN 24 H (9-16) mg/dL Creatinine 0.86 (0.5-1.4) mg/dL Estim Creat Clear Calc 43.3 Estimated GFR > 60 Random Glucose 115 (60-115) mg/dL Calcium 9.1 (8.4-10.2) mg/dL Magnesium 1.4 L* (1.6-2.6) mg/dL Total Bilirubin 1.2 H (0.0-1.0) mg/dL Direct Bilirubin 0.3 (0.0-0.5) mg/dL AST 16 (5-31) U/L ALT 12 (0-31) U/L Alkaline Phosphatase 80 (39-117) U/L Total Protein 6.9 (6.5-8.0) g/dL Albumin 3.9 (3.5-5.0) g/dL Urine Color Urine Appearance Urine pH (5.0-9.0) Ur Specific [place] (1.005-1.025) Urine Protein (Neg-Trace) mg/dL Urine Glucose (UA) (Negative) mg/dL Urine Ketones (Negative) mg/dL Urine Blood (Negative) Urine Nitrite (Negative) Ur Leukocyte Esterase (Negative) Urine RBC (0-2) /HPF Urine WBC (0-5) /HPF Ur Squamous Epith Cells (0-2) /HPF Urine Bacteria (None Seen) Hyaline Casts (0-2) /LPF COVID-19 ([facility]) Negative (Negative) COVID-19 Clin Com See Note 12/22/22 Range/Units 17:41 WBC (4.8-10.8) X10*3/uL RBC (4.20-5.50) X10*6/uL Hgb (12.0-16.0) g/dl Hct (37.0-47.0) % MCV (80.0-98.0) fL MCH (27.0-33.0) pg MCHC (31.0-35.0) g/dl RDW (11.0-16.0) % Plt Count (160-400) X10*3/uL MPV (9.4-12.3) fL Immature Gran % (Auto) (0.0-0.4) % Neut % (Auto) (45-73) % Lymph % (Auto) (20-40) % Randall % (Auto) (2-11) % Eos % (Auto) (0-4) % Baso % (Auto) (0-2) % Lymph # (Auto) (1.2-4.9) X10*3/uL Randall # (Auto) (0.1-1.2) X10*3/uL Eos # (Auto) (0.0-0.4) X10*3/uL Baso # (Auto) (0.0-0.2) X10*3/uL Abs Immat Gran (auto) (0.00-0.03) X10*3/uL Absolute Neuts (auto) (2.0-8.3) x10*3/uL Absolute Nucleated RBC (0.0-0.012) X10*3/uL Nucleated RBC % (auto) (0.0-0.2) /100WBC Sodium (135-145) mmol/L Potassium (3.3-5.1) mmol/L Chloride (96-108) mmol/L Carbon Dioxide (22-29) mmol/L Anion Gap (12-20) BUN (9-16) mg/dL Creatinine (0.5-1.4) mg/dL Estim Creat Clear Calc Estimated GFR Random Glucose (60-115) mg/dL Calcium (8.4-10.2) mg/dL Magnesium (1.6-2.6) mg/dL Total Bilirubin (0.0-1.0) mg/dL Direct Bilirubin (0.0-0.5) mg/dL AST (5-31) U/L ALT (0-31) U/L Alkaline Phosphatase (39-117) U/L Total Protein (6.5-8.0) g/dL Albumin (3.5-5.0) g/dL Urine Color Yellow Urine Appearance Clear Urine pH 6.5 (5.0-9.0) Ur Specific [place] 1.020 (1.005-1.025) Urine Protein Negative (Neg-Trace) mg/dL Urine Glucose (UA) Negative (Negative) mg/dL Urine Ketones Negative (Negative) mg/dL Urine Blood Negative (Negative) Urine Nitrite Negative (Negative) Ur Leukocyte Esterase Small (1+) H (Negative) Urine RBC 0-2 (0-2) /HPF Urine WBC 6-10 H (0-5) /HPF Ur Squamous Epith Cells 0-2 (0-2) /HPF Urine Bacteria 1+ (None Seen) Hyaline Casts 0-2 (0-2) /LPF COVID-19 ([facility]) (Negative) COVID-19 Clin Com <HINA Perry - Last Filed: 12/22/22 12:05> Lab Results 12/22/22 12/22/22 12/22/22 Range/Units 12:54 12:54 12:54 WBC 9.8 (4.8-10.8) X10*3/uL RBC 3.79 L (4.20-5.50) X10*6/uL Hgb 11.6 L (12.0-16.0) g/dl Hct 35.2 L (37.0-47.0) % MCV 92.9 (80.0-98.0) fL MCH 30.6 (27.0-33.0) pg MCHC 33.0 (31.0-35.0) g/dl RDW 12.9 (11.0-16.0) % Plt Count 219 (160-400) X10*3/uL MPV 10.2 (9.4-12.3) fL Immature Gran % (Auto) 0.4 (0.0-0.4) % Neut % (Auto) 72.9 (45-73) % Lymph % (Auto) 17.8 L (20-40) % Randall % (Auto) 6.7 (2-11) % Eos % (Auto) 1.4 (0-4) % Baso % (Auto) 0.8 (0-2) % Lymph # (Auto) 1.7 (1.2-4.9) X10*3/uL Randall # (Auto) 0.7 (0.1-1.2) X10*3/uL Eos # (Auto) 0.1 (0.0-0.4) X10*3/uL Baso # (Auto) 0.1 (0.0-0.2) X10*3/uL Abs Immat Gran (auto) 0.04 H (0.00-0.03) X10*3/uL Absolute Neuts (auto) 7.1 (2.0-8.3) x10*3/uL Absolute Nucleated RBC 0.000 (0.0-0.012) X10*3/uL Nucleated RBC % (auto) 0.0 (0.0-0.2) /100WBC Sodium 137 (135-145) mmol/L Potassium 4.6 (3.3-5.1) mmol/L Chloride 99 (96-108) mmol/L Carbon Dioxide 28 (22-29) mmol/L Anion Gap 15 (12-20) BUN 24 H (9-16) mg/dL Creatinine 0.86 (0.5-1.4) mg/dL Estim Creat Clear Calc 43.3 Estimated GFR > 60 Random Glucose 115 (60-115) mg/dL Calcium 9.1 (8.4-10.2) mg/dL Magnesium 1.4 L* (1.6-2.6) mg/dL Total Bilirubin 1.2 H (0.0-1.0) mg/dL Direct Bilirubin 0.3 (0.0-0.5) mg/dL AST 16 (5-31) U/L ALT 12 (0-31) U/L Alkaline Phosphatase 80 (39-117) U/L Total Protein 6.9 (6.5-8.0) g/dL Albumin 3.9 (3.5-5.0) g/dL Urine Color Urine Appearance Urine pH (5.0-9.0) Ur Specific [place] (1.005-1.025) Urine Protein (Neg-Trace) mg/dL Urine Glucose (UA) (Negative) mg/dL Urine Ketones (Negative) mg/dL Urine Blood (Negative) Urine Nitrite (Negative) Ur Leukocyte Esterase (Negative) Urine RBC (0-2) /HPF Urine WBC (0-5) /HPF Ur Squamous Epith Cells (0-2) /HPF Urine Bacteria (None Seen) Hyaline Casts (0-2) /LPF COVID-19 ([facility]) Negative (Negative) COVID-19 Clin Com See Note 12/22/22 Range/Units 17:41 WBC (4.8-10.8) X10*3/uL RBC (4.20-5.50) X10*6/uL Hgb (12.0-16.0) g/dl Hct (37.0-47.0) % MCV (80.0-98.0) fL MCH (27.0-33.0) pg MCHC (31.0-35.0) g/dl RDW (11.0-16.0) % Plt Count (160-400) X10*3/uL MPV (9.4-12.3) fL Immature Gran % (Auto) (0.0-0.4) % Neut % (Auto) (45-73) % Lymph % (Auto) (20-40) % Randall % (Auto) (2-11) % Eos % (Auto) (0-4) % Baso % (Auto) (0-2) % Lymph # (Auto) (1.2-4.9) X10*3/uL Randall # (Auto) (0.1-1.2) X10*3/uL Eos # (Auto) (0.0-0.4) X10*3/uL Baso # (Auto) (0.0-0.2) X10*3/uL Abs Immat Gran (auto) (0.00-0.03) X10*3/uL Absolute Neuts (auto) (2.0-8.3) x10*3/uL Absolute Nucleated RBC (0.0-0.012) X10*3/uL Nucleated RBC % (auto) (0.0-0.2) /100WBC Sodium (135-145) mmol/L Potassium (3.3-5.1) mmol/L Chloride (96-108) mmol/L Carbon Dioxide (22-29) mmol/L Anion Gap (12-20) BUN (9-16) mg/dL Creatinine (0.5-1.4) mg/dL Estim Creat Clear Calc Estimated GFR Random Glucose (60-115) mg/dL Calcium (8.4-10.2) mg/dL Magnesium (1.6-2.6) mg/dL Total Bilirubin (0.0-1.0) mg/dL Direct Bilirubin (0.0-0.5) mg/dL AST (5-31) U/L ALT (0-31) U/L Alkaline Phosphatase (39-117) U/L Total Protein (6.5-8.0) g/dL Albumin (3.5-5.0) g/dL Urine Color Yellow Urine Appearance Clear Urine pH 6.5 (5.0-9.0) Ur Specific [place] 1.020 (1.005-1.025) Urine Protein Negative (Neg-Trace) mg/dL Urine Glucose (UA) Negative (Negative) mg/dL Urine Ketones Negative (Negative) mg/dL Urine Blood Negative (Negative) Urine Nitrite Negative (Negative) Ur Leukocyte Esterase Small (1+) H (Negative) Urine RBC 0-2 (0-2) /HPF Urine WBC 6-10 H (0-5) /HPF Ur Squamous Epith Cells 0-2 (0-2) /HPF Urine Bacteria 1+ (None Seen) Hyaline Casts 0-2 (0-2) /LPF COVID-19 ([facility]) (Negative) COVID-19 Clin Com <HINA Malhotra - Last Filed: 12/23/22 08:27> Independent Interpretation I performed an independent interpretation of an: EKG <HINA Malhotra - Last Filed: 12/23/22 08:27> Interpretation: Vent. Rate: 071 BPM ? ? Atrial Rate: 071 BPM P-R Int: 198 ms? QRS Dur: 082 ms QT Int: 374 ms ? ? ? P-R-T Axes: 062 035 035 degrees QTc Int: 406 ms ? Normal sinus rhythm Low voltage QRS Borderline ECG When compared with ECG of 17-NOV-2022 20:20, Previous ECG has undetermined rhythm, needs review Criteria for Septal infarct are no longer Present DD/ 1245 <HINA Malhotra - Last Filed: 12/23/22 08:27> Radiology Impression Radiologist Impression: My interpretation is in agreement with the radiologist's impression of these imaging studies. EXAMINATION: XR FOOT, LEFT CLINICAL INFORMATION: Bruising. Fall.? COMPARISON: Previous x-ray from 2008? TECHNIQUE: AP, lateral, and oblique views of the left foot. FINDINGS: No acute fracture or dislocation. Orthopedic hardware in the distal fibula and medial malleolus. Normal joint spaces. Calcaneal spur. Soft tissue arterial calcification.? XR/XR foot LT min 3V IMPRESSION: No acute fracture or dislocation. Dictated By: Morenita Armstrong MD Signed By: Electronically signed by Morenita Armstrong MD 12/22/22 1337 EXAMINATION: XR PELVIS WITH HIP, LEFT CLINICAL INFORMATION: Fall, trauma, pain COMPARISON: CT abdomen and pelvis 12/03/2021 TECHNIQUE: AP view pelvis is performed along with AP and frog-lateral projections of the left hip for a total of 3 views. FINDINGS: No fracture or dislocation. No diastases SI joints or pubis. There is whiskering at the lateral aspect bilateral iliac crests again seen. There is mild spurring at the caudal aspect both greater trochanters. Bowel gas unremarkable. There are atherosclerotic calcifications iliac and femoral arteries. XR/XR hip LT w PEL1V IMPRESSION: No fracture or dislocation. Dictated By: Wisam Castro MD Signed By: Electronically signed by Wisam Castro MD 12/22/22 1347 EXAMINATION: CT HEAD WITHOUT CONTRAST CT CERVICAL SPINE WITHOUT CONTRAST CLINICAL INFORMATION: Fall. Head strike.? COMPARISON: CT head 11/17/2022 TECHNIQUE: Imaging was performed from the skull base to vertex without intravenous administration of contrast. In addition, helical noncontrast CT imaging was acquired through the cervical spine and source images were reviewed along with axial reconstructions and sagittal and coronal MPRs. [This CT examination was performed using dose optimization techniques as appropriate, variously including the following: *Automated exposure control *Adjustment of mA and/or kV according to patient size (this includes techniques or standardized protocols for targeted exams where dose is matched to indication/reason for exam; i.e. extremities or head) *Use of iterative reconstruction technique] DLP: 868 mGy-cm FINDINGS: HEAD: No intracranial mass, hemorrhage, or midline shift is visualized. There is generalized global volume loss. There is moderate prominence of the ventricles and the sulci . There is mild hypodensity of the periventricular white matter due to chronic small vessel ischemic disease. There are vascular calcifications of the internal carotid arteries bilaterally. No extra-axial collections are identified. The paranasal sinuses and mastoid air cells are well aerated. CERVICAL SPINE: There is no evidence of acute cervical spine fracture. Vertebral bodies remain normal in height. Cervical vertebrae have normal alignment. There is multilevel degenerative spondylosis of the cervical spine with disc height narrowing and endplate spurs and facet joint arthrosis The thyroid gland is not enlarged but is heterogeneous in density. Largest hypodense nodule measuring 0.8 cm right lobe of thyroid. No imaging follow-up recommended. Limited assessment of the lung apices is unremarkable. Vascular calcification of carotid arteries. CT/CT cervical spine wo IV con IMPRESSION: 1. No acute intracranial pathology. 2. No CT evidence of acute cervical spine fracture or traumatic subluxation Dictated By: Jaden Dill MD Signed By: Electronically signed by Jaden Dill MD 12/22/22 1513 <HINA Malhotra - Last Filed: 12/23/22 08:27> Independent Historian Clinical information obtained from an independent historian. History obtained from or confirmed by: Other (patient's daughter) <HINA Malhotra - Last Filed: 12/23/22 08:27> Discharge Plan Discharge Clinical Impression: Acute UTI <HINA Perry Last Filed: 12/22/22 12:05> Patient Disposition: Home, Self-Care <HINA Perry Last Filed: 12/22/22 12:05> Instructions: Urinary Tract Infection in Women (ED) <HINA Perry - Last Filed: 12/22/22 12:05> Additional Instructions: Follow up with your primary care provider. Return to the emergency department immediately if your symptoms worsen or if you develop any dizziness, shortness of breath, difficulty breathing, chest pain, blurry vision, loss of vision, nausea, vomiting, abdominal pain, fever, chills, back pain, or any other complaints. <HINA Perry - Last Filed: 12/22/22 12:05> Prescriptions: New cephalexin 500 mg capsule 500 mg PO Q6H 7 Days Qty: 28 0RF No Action cefuroxime axetil 500 mg tablet 500 mg PO BID Qty: 14 0RF metformin 500 mg tablet 500 mg PO BID memantine 5 mg tablet 5 mg PO BID amlodipine 10 mg tablet 10 mg PO DAILY risperidone 0.5 mg tablet 0.5 mg PO BID <HINA Perry - Last Filed: 12/22/22 12:05> Referrals: Aimee Adrian MD [Primary Care Provider] - <HINA Perry - Last Filed: 12/22/22 12:05> Stand Alone Forms: Work/School Release <HINA Perry - Last Filed: 12/22/22 12:05> Interventions: ED Discharge Assessment Last Done: 12/22/22 19:20 <HINA Perry - Last Filed: 12/22/22 12:05> Discharge Date/Time: 12/22/22 19:34 <HINA Perry - Last Filed: 12/22/22 12:05> Print Language: Indonesian <HINA Perry - Last Filed: 12/22/22 12:05>
[2022-12-22 12:00] VITALS: BP 122/67; PULSE 76; RESP 16; TEMP 37.3; O2SAT 97; BMI 22.6
--- NOTE | 2022-12-22 12:02 | ECG_ITS ---
Test Reason : weakness Blood Pressure : / mmHG Vent. Rate : 071 BPM Atrial Rate : 071 BPM P-R Int : 198 ms QRS Dur : 082 ms QT Int : 374 ms P-R-T Axes : 062 035 035 degrees QTc Int : 406 ms Normal sinus rhythm Low voltage QRS Borderline ECG When compared with ECG of Criteria for Septal infarct are no longer Present Referred By: Alyce Vidal Electronically Signed By:Escobar Crenshaw
[2022-12-22 12:58] LABS: MANUAL DIFF FLAG NO
[2022-12-22 13:00] LABS: Basophils Absolute Auto 0.1 X10*3/uL (0.0-0.2); Basophils Percent Auto 0.8 % (0-2); Eosinophils Absolute Auto 0.1 X10*3/uL (0.0-0.4); Eosinophils Percent Auto 1.4 % (0-4); Hematocrit 35.2 % (37.0-47.0); Hemoglobin 11.6 g/dl (12.0-16.0); Imm Gran Abs Auto 0.04 X10*3/uL (0.00-0.03); Imm Gran Pct Auto 0.4 % (0.0-0.4); Lymphocytes Absolute Auto 1.7 X10*3/uL (1.2-4.9); Lymphocytes Percent Auto 17.8 % (20-40); Mean Corpuscular Hemoglobin 30.6 pg (27.0-33.0); Mean Corpuscular Volume 92.9 fL (80.0-98.0); Mean Platelet Volume 10.2 fL (9.4-12.3); Monocytes Absolute Auto 0.7 X10*3/uL (0.1-1.2); Monocytes Percent Auto 6.7 % (2-11); Neutrophils Absolute Auto 7.1 x10*3/uL (2.0-8.3); Neutrophils Percent Auto 72.9 % (45-73); Platelet Count 219 X10*3/uL (160-400); Red Blood Count 3.79 X10*6/uL (4.20-5.50); Red Cell Distribution Width 12.9 % (11.0-16.0); White Blood Count 9.8 X10*3/uL (4.8-10.8)
[2022-12-22 13:16] LABS: COVID-19 Test Negative (Negative); IDNOW Serial# BCCEAD1C
[2022-12-22 13:38] LABS: Alanine Aminotransferase 12 U/L (0-31); Albumin Level 3.9 g/dL (3.5-5.0); Alkaline Phosphatase 80 U/L (39-117); Anion Gap 15 (12-20); Aspartate Amino Transferase 16 U/L (5-31); Bilirubin Direct 0.3 mg/dL (0.0-0.5); Bilirubin Total 1.2 mg/dL (0.0-1.0); Blood Urea Nitrogen 24 mg/dL (9-16); Calcium 9.1 mg/dL (8.4-10.2); Carbon Dioxide 28 mmol/L (22-29); Chloride 99 mmol/L (96-108); Creatinine Clr Calc Pharmacy 43.3; Estimated Glomerular Filt Rate > 60; Glucose Random 115 mg/dL (60-115); Magnesium 1.4 mg/dL (1.6-2.6); Potassium 4.6 mmol/L (3.3-5.1); Sodium 137 mmol/L (135-145); Total Protein 6.9 g/dL (6.5-8.0)
[2022-12-22 16:49] VITALS: BP 128/54; PULSE 66; RESP 16; TEMP 36.8; O2SAT 96
--- NOTE | 2022-12-22 16:52 | PC.NURSE ---
Patient alert confused to situation no distress noted famiiy member at bedside reports multiple falls. Patient neurologically intact moves all extremities with purpose will CTM
[2022-12-22 17:29] VITALS: RESP 18
[2022-12-22] MEDS: fentaNYL citrate/PF 100 MCG/2 ML VIAL 25 MCG IVPUSH (17:29)
[2022-12-22] MEDS: Magnesium Sulfate/H2O 2 GM/50 ML PIGGYBACK IV (17:29)
[2022-12-22] MEDS: 0.9 % Sodium Chloride 1,000 ML 999 ML IV (17:31)
[2022-12-22 17:45] VITALS: BP 140/74; PULSE 63; RESP 15; TEMP 36.8; O2SAT 97
[2022-12-22 17:47] LABS: Appearance Urine Clear; Color Urine Yellow; Glucose Urine UA Negative (Negative); Leukocyte Esterase Urine Small (1+) (Negative); Nitrite Urine Negative (Negative); PH 6.5 (5.0-9.0); UMIC TRIGGER UACC YES; Urine Blood Negative (Negative); Urine Ketones Negative (Negative); Urine Protein Negative (Neg-Trace)
--- NOTE | 2022-12-22 17:48 | PC.NURSE ---
Patient straight cath with Sheri Hudson RN
[2022-12-22 17:54] LABS: Bacteria Urine 1+ (None Seen); Hyaline Casts Urine 0-2 /LPF (0-2); RBC Urine 0-2 /HPF (0-2); Squamous Epithelial Cell Urine 0-2 /HPF (0-2); UACC Culture Trigger YES
[2022-12-22 18:30] VITALS: BP 139/73; PULSE 62; RESP 18; O2SAT 97
[2022-12-22] MEDS: cefTRIAXone sodium 1 GM in 0.9 % Sodium Chloride 50 ML IV (18:30)
== END 2022-12-22 19:34 | disposition home or self-care (01) ==
PROVIDERS: Physician Assistant; Emergency Provider Emergency Medicine; PCP Internal Medicine
DX: N39.0 Urinary tract infection, site not specified (principal); B96.5 Pseudomonas (aeruginosa) (mallei) (pseudomallei) as the cause of diseases classified elsewhere; R53.1 Weakness; R29.6 Repeated falls; Z91.81 History of falling; Z20.822 Contact with and (suspected) exposure to COVID-19; E11.9 Type 2 diabetes mellitus without complications; G30.9 Alzheimer's disease, unspecified; F02.82 Dementia in other diseases classified elsewhere, unspecified severity, with psychotic disturbance; Z79.84 Long term (current) use of oral hypoglycemic drugs; Z79.899 Other long term (current) drug therapy
CPT/HCPCS: 70450; 72125; 73502; 73630; 80048; 80076; 81001; 83735; 85025; 87086; 87088; 87186; 87635; 93005; 96361; 96365; 96367; 96375; 99284; J0696; J3010; J3475

== ENCOUNTER 2023-03-23 12:40 | Emergency (ER) | payer MEDICARE, MEDICAID, SELFPAY ==
[2023-03-23 13:34] VITALS: BP 118/63; PULSE 58; RESP 18; TEMP 36.3; O2SAT 98; BMI 18.5
--- NOTE | 2023-03-23 13:34 | ED_ITS ---
HPI - General Adult General Chief complaint: Urogenital-Female Stated complaint: UTI Time Seen by Provider: 03/23/23 14:31 Source: patient and family (The sister) Mode of arrival: ambulatory Limitations: other (Advanced dementia) History of Present Illness HPI narrative: A 72-year-old female with history of advanced dementia, HTN, CKD, DM brought in with her family for a concern of patient getting agitation and sun down symptoms, family noted odorous urine, patient usually when she has a UTI family notice change mental status and increased agitation. Otherwise no reported fever, chills, abdominal pain or discomfort. Related Data Home Medications Medication Instructions Recorded Confirmed amlodipine 10 mg tablet 10 mg PO DAILY 01/08/21 02/06/22 memantine 5 mg tablet 5 mg PO BID 01/08/21 02/06/22 metformin 500 mg tablet 500 mg PO BID 01/08/21 02/06/22 risperidone 0.5 mg tablet 0.5 mg PO BID 01/08/21 02/06/22 Previous Rx's Medication Instructions Recorded cefuroxime axetil 500 mg tablet 500 mg PO BID #14 tabs 11/18/22 cephalexin 500 mg capsule 500 mg PO Q6H 7 days #28 caps 12/22/22 cefuroxime axetil 250 mg tablet 250 mg PO BID #14 tabs 03/23/23 Allergies Allergy/AdvReac Type Severity Reaction Status Date / Time penicillin G procaine Allergy Swelling Verified 03/23/23 13:34 Review of Systems Review of Systems: All other systems are reviewed and are negative Constitutional: Reports as per HPI and Reports no additional constitutional complaints Eyes: Reports as per HPI and Reports no additional eye complaints Reports system reviewed and no additional complaints, except as documented Cardiovascular: Reports as per HPI and Reports no additional cardiovascular complaints Respiratory: Reports as per HPI and Reports no additional respiratory complaints Gastrointestinal: Reports as per HPI and Reports no additional gastrointestinal complaints Genitourinary: Reports no additional female genitourinary complaints Musculoskeletal: Reports no additional musculoskeletal complaints Skin/Breast: Reports system reviewed and no additional complaints, except as do cu Psychiatric: Reports no additional psychiatric complaints Endocrine: Reports no additional endocrine complaints Hematologic/Lymphatic: Reports no additional hematologic/lymphatic complaints Allergic/Immunologic: Reports no additional allergic/immunologic complaints Reports system reviewed and no additional complaints, except as documented and Reports Abnormal speech present FORMERLY [facility], [facility] Past Medical History Medical History Dementia Diabetes Pancreatic lesion Tubular adenoma of colon Surgical History H/O prior ablation treatment Social History Social History Alcohol intake: unknown Patient Tobacco Use Status: Never used Tobacco Advance Directives: No Advance Directives Information Provided: Yes Physical Exam ED Vital Signs: Vital Signs - 24 hr 03/23/23 13:34 Temperature 97.3 F Pulse Rate 58 Respiratory Rate 18 Blood Pressure 118/63 Pulse Oximetry 98 Oxygen Delivery Method Room Air BMI result Body Mass Index 18.5 Vital signs have been reviewed as appeared to be correct. Blood pressure normal. Heart rate normal. Respiration rate normal. Temperature normal. Oxygen saturation normal. Appearance: Alert, regards examiner, calm. No acute distress. Head: Normal external exam. Normocephalic. Atraumatic. No Galvan signs noted. No raccoon eyes noted Eyes: PERRLA. EOMI. Conjunctiva and sclera normal. Eyelids normal. ENT: TM's Normal. Pharynx normal. Uvula midline. Moist mucous membranes. No trismus noted. No drooling noted. No muffled voice noted. Neck: Normal inspection. Neck supple. FROM. No adenopathy. Thyroid Normal. No meningeal signs. No neck mass noted. CVS: Normal heart rate and rhythm. Heart sound normal. No murmurs noted. Pulses normal throughout. Respiratory: No respiratory distress. Painless inspiration. Breath sounds normal. No wheezes/rales/rhonchi noted. Chest nontender. No accessory muscle usage noted or decreased air movement noted. Abdomen: Soft and nontender. Bowel sounds normal in all 4 quadrants. No distention noted. No organomegaly noted. No visible injury noted. Back: No CVA tenderness. Full range of motion noted. Skin: Skin warm and dry. Normal skin color. Normal skin turgor. No rashes/lesions/lacerations noted. Extremities: No lower extremity edema. Extremities exhibit normal range of motion. Extremities nontender. Neuro: Awake, alert, disoriented X4. Cranial nerve exam: II-XII are grossly intact No motor deficit. No sensory deficit. Reflexes normal. Course Course Course Narrative: This is a rapid medical exam. Deferred additional HPI, ROS, PE to primary provider. 72 yo female with history of dementia, DM, HTN, CKD here with AMS, increasing aggression, urine has bad smell. Has history of UTIS and family believes this has a UTI as this her typical presentation. Will check labs, UA. VSS Reevaluation(s) Reevaluation #1: 72 year old female history of advanced dementia and family with concern of UTI patient is shown very mild UTI on the UA, will start the patient on cefuroxime and encouraged to drink plenty. Time: 15:34 Reevaluation #2: Patient received cefuroxime in the ED no developing rashes or itching. Time: 17:13 Medications Administered Discontinued Medications Generic Name Dose Route Start Last Admin Trade Name Freq PRN Reason Stop Dose Admin Cefuroxime Axetil 250 mg 03/23/23 15:31 03/23/23 15:47 Cefuroxime Axetil 250 Mg Tablet PO 03/23/23 15:32 250 mg ONCE ONE Administration Medical Decision Making Differential Diagnosis Differential Diagnoses: The differential diagnosis associated with the presentation includes (Acute electrolyte abnormalities, severe anemia, UTI, worsening of dementia) Admission/Observation Consideration of admission/observation: Escalation of care including admission/observation considered Lab Data MDM Lab Attestation statement: I reviewed the patient's lab results. 03/23/23 13:43 03/23/23 13:43 Labs: Lab Results 03/23/23 03/23/23 03/23/23 Range/Units 13:43 13:43 14:58 WBC 10.9 H (4.8-10.8) X10*3/uL RBC 4.41 (4.20-5.50) X10*6/uL Hgb 13.5 (12.0-16.0) g/dl Hct 40.1 (37.0-47.0) % MCV 90.9 (80.0-98.0) fL MCH 30.6 (27.0-33.0) pg MCHC 33.7 (31.0-35.0) g/dl RDW 12.2 (11.0-16.0) % Plt Count 243 (160-400) X10*3/uL MPV 10.0 (9.4-12.3) fL Immature Gran % (Auto) 0.3 (0.0-0.4) % Neut % (Auto) 46.6 (45-73) % Lymph % (Auto) 27.6 (20-40) % Dickenson % (Auto) 5.3 (2-11) % Eos % (Auto) 18.8 H (0-4) % Baso % (Auto) 1.4 (0-2) % Lymph # (Auto) 3.0 (1.2-4.9) X10*3/uL Dickenson # (Auto) 0.6 (0.1-1.2) X10*3/uL Eos # (Auto) 2.1 H (0.0-0.4) X10*3/uL Baso # (Auto) 0.2 (0.0-0.2) X10*3/uL Abs Immat Gran (auto) 0.03 (0.00-0.03) X10*3/uL Absolute Neuts (auto) 5.1 (2.0-8.3) x10*3/uL Absolute Nucleated RBC 0.000 (0.0-0.012) X10*3/uL Nucleated RBC % (auto) 0.0 (0.0-0.2) /100WBC Smear Tech's Comments VERIFIED Sodium 138 (135-145) mmol/L Potassium 4.7 (3.3-5.1) mmol/L Chloride 102 (96-108) mmol/L Carbon Dioxide 28 (22-29) mmol/L Anion Gap 13 (12-20) BUN 24 H (9-16) mg/dL Creatinine 1.13 (0.5-1.4) mg/dL Estim Creat Clear Calc 31.4 Estimated GFR 47 Random Glucose 111 (60-115) mg/dL Calcium 9.2 (8.4-10.2) mg/dL Urine Color Yellow Urine Appearance Clear Urine pH 5.5 (5.0-9.0) Ur Specific [place] 1.025 (1.005-1.025) Urine Protein Negative (Neg-Trace) mg/dL Urine Glucose (UA) Negative (Negative) mg/dL Urine Ketones Trace (Negative) mg/dL Urine Blood Negative (Negative) Urine Nitrite Negative (Negative) Ur Leukocyte Esterase Small (1+) H (Negative) Urine RBC 0-2 (0-2) /HPF Urine WBC 0-5 (0-5) /HPF Ur Squamous Epith Cells 0-2 (0-2) /HPF Urine Bacteria Trace (None Seen) Hyaline Casts 0-2 (0-2) /LPF Discharge Plan Discharge Clinical Impression: Dementia, Urinary tract infection Patient Disposition: Home, Self-Care Instructions: Urinary Tract Infection in Women (ED) Prescriptions: New cefuroxime axetil 250 mg tablet 250 mg PO BID Qty: 14 0RF No Action cephalexin 500 mg capsule 500 mg PO Q6H 7 Days Qty: 28 0RF cefuroxime axetil 500 mg tablet 500 mg PO BID Qty: 14 0RF metformin 500 mg tablet 500 mg PO BID memantine 5 mg tablet 5 mg PO BID amlodipine 10 mg tablet 10 mg PO DAILY risperidone 0.5 mg tablet 0.5 mg PO BID
--- NOTE | 2023-03-23 13:46 | MHC.EDTECH ---
Labs collected and sent
[2023-03-23 13:57] LABS: Basophils Absolute Auto 0.2 X10*3/uL (0.0-0.2); Basophils Percent Auto 1.4 % (0-2); Eosinophils Absolute Auto 2.1 X10*3/uL (0.0-0.4); Eosinophils Percent Auto 18.8 % (0-4); Hematocrit 40.1 % (37.0-47.0); Hemoglobin 13.5 g/dl (12.0-16.0); Imm Gran Abs Auto 0.03 X10*3/uL (0.00-0.03); Imm Gran Pct Auto 0.3 % (0.0-0.4); Lymphocytes Percent Auto 27.6 % (20-40); MANUAL DIFF FLAG SCAN; Mean Corpuscular HGB Conc 33.7 g/dl (31.0-35.0); Mean Corpuscular Hemoglobin 30.6 pg (27.0-33.0); Mean Corpuscular Volume 90.9 fL (80.0-98.0); Monocytes Absolute Auto 0.6 X10*3/uL (0.1-1.2); Monocytes Percent Auto 5.3 % (2-11); Neutrophils Absolute Auto 5.1 x10*3/uL (2.0-8.3); Neutrophils Percent Auto 46.6 % (45-73); Platelet Count 243 X10*3/uL (160-400); Red Blood Count 4.41 X10*6/uL (4.20-5.50); Red Cell Distribution Width 12.2 % (11.0-16.0); SCAN SMEAR FLAG 1; White Blood Count 10.9 X10*3/uL (4.8-10.8)
[2023-03-23 14:29] LABS: Anion Gap 13 (12-20); Blood Urea Nitrogen 24 mg/dL (9-16); Calcium 9.2 mg/dL (8.4-10.2); Carbon Dioxide 28 mmol/L (22-29); Chloride 102 mmol/L (96-108); Creatinine Clr Calc Pharmacy 31.4; Estimated Glomerular Filt Rate 47; Glucose Random 111 mg/dL (60-115); Potassium 4.7 mmol/L (3.3-5.1); Sodium 138 mmol/L (135-145)
[2023-03-23 14:31] LABS: SLIDE REVIEW VERIFIED
[2023-03-23 15:09] LABS: Appearance Urine Clear; Color Urine Yellow; Glucose Urine UA Negative (Negative); Leukocyte Esterase Urine Small (1+) (Negative); Nitrite Urine Negative (Negative); PH 5.5 (5.0-9.0); Specific Gravity - Urine 1.025 (1.005-1.025); UMIC TRIGGER UACC YES; Urine Blood Negative (Negative); Urine Ketones Trace mg/dL (Negative); Urine Protein Negative (Neg-Trace)
--- NOTE | 2023-03-23 15:12 | PC.NURSE ---
straight cath performed per MD order, pt tolerated well. Pt unable to answer any questions asked by staff d/t baseline dementia
[2023-03-23 15:23] LABS: Bacteria Urine Trace (None Seen); Hyaline Casts Urine 0-2 /LPF (0-2); RBC Urine 0-2 /HPF (0-2); Squamous Epithelial Cell Urine 0-2 /HPF (0-2); UACC Culture Trigger YES; WBC Urine 0-5 /HPF (0-5)
== END 2023-03-23 17:15 | disposition home or self-care (01) ==
PROVIDERS: Nurse Practitioner Family; Emergency Provider Emergency Medicine
DX: F03.90 Unspecified dementia, unspecified severity, without behavioral disturbance, psychotic disturbance, mood disturbance, and anxiety (principal); N39.0 Urinary tract infection, site not specified; I10 Essential (primary) hypertension; E11.9 Type 2 diabetes mellitus without complications; Z79.899 Other long term (current) drug therapy
CPT/HCPCS: 36415; 80048; 81001; 85025; 87086; 87088; 87186; 99283; 99284

== ENCOUNTER 2023-03-27 10:38 | Outpatient (REF) | payer MEDICARE, MEDICAID, SELFPAY ==
[2023-03-27 12:06] LABS: Basophils Absolute Auto 0.2 X10*3/uL (0.0-0.2); Basophils Percent Auto 1.8 % (0-2); Eosinophils Absolute Auto 1.9 X10*3/uL (0.0-0.4); Eosinophils Percent Auto 21.7 % (0-4); Hematocrit 39.8 % (37.0-47.0); Hemoglobin 12.9 g/dl (12.0-16.0); Imm Gran Abs Auto 0.02 X10*3/uL (0.00-0.03); Imm Gran Pct Auto 0.2 % (0.0-0.4); Lymphocytes Absolute Auto 2.5 X10*3/uL (1.2-4.9); Lymphocytes Percent Auto 28.1 % (20-40); MANUAL DIFF FLAG SCAN; Mean Corpuscular HGB Conc 32.4 g/dl (31.0-35.0); Mean Corpuscular Hemoglobin 30.1 pg (27.0-33.0); Mean Platelet Volume 10.6 fL (9.4-12.3); Monocytes Absolute Auto 0.5 X10*3/uL (0.1-1.2); Monocytes Percent Auto 5.5 % (2-11); Neutrophils Absolute Auto 3.8 x10*3/uL (2.0-8.3); Neutrophils Percent Auto 42.7 % (45-73); Platelet Count 256 X10*3/uL (160-400); Red Blood Count 4.28 X10*6/uL (4.20-5.50); Red Cell Distribution Width 12.5 % (11.0-16.0); SCAN SMEAR FLAG 1; White Blood Count 8.9 X10*3/uL (4.8-10.8)
[2023-03-27 12:31] LABS: SLIDE REVIEW VERIFIED
[2023-03-27 13:03] LABS: Albumin Level 3.9 g/dL (3.5-5.0); Anion Gap 12 (12-20); Blood Urea Nitrogen 30 mg/dL (9-16); Calcium 9.6 mg/dL (8.4-10.2); Carbon Dioxide 30 mmol/L (22-29); Chloride 104 mmol/L (96-108); Estimated Glomerular Filt Rate 49; Magnesium 1.7 mg/dL (1.6-2.6); Phosphorus 3.9 mg/dL (2.7-4.5); Potassium 4.6 mmol/L (3.3-5.1); Sodium 141 mmol/L (135-145)
[2023-03-27 13:09] LABS: Vitamin D 25-OH Total 65.3 ng/mL (>30)
[2023-03-27 13:49] LABS: Appearance Urine Clear; Color Urine Yellow; Glucose Urine UA Negative (Negative); Leukocyte Esterase Urine Moderate (2+) (Negative); Nitrite Urine Negative (Negative); PH 5.5 (5.0-9.0); Specific Gravity - Urine 1.025 (1.005-1.025); UMIC TRIGGER UACC YES; Urine Blood Negative (Negative); Urine Ketones Negative (Negative); Urine Protein Negative (Neg-Trace)
[2023-03-27 13:52] LABS: Bacteria Urine None Seen (None Seen); Hyaline Casts Urine 0-2 /LPF (0-2); RBC Urine 0-2 /HPF (0-2); UACC Culture Trigger YES
[2023-03-27 14:11] LABS: Creatinine Urine 171.34 mg/dL; Protein/Creatinine Ratio, Ur 0.09 (<0.2); Total Protein Urine Random 15 mg/dL (<12)
[2023-03-30 15:54] LABS: Calcium (PTHI) 9.4 mg/dL (8.6-10.4); PTHI 25 pg/mL (16-77)
== END 2023-03-27 10:39 | disposition home or self-care (01) ==
LOC: HO.LAB 10:38
PROVIDERS: PCP Internal Medicine; Visit Provider Internal Medicine Nephrology
DX: I12.9 Hypertensive chronic kidney disease with stage 1 through stage 4 chronic kidney disease, or unspecified chronic kidney disease (principal); N18.31 Chronic kidney disease, stage 3a; R82.90 Unspecified abnormal findings in urine
CPT/HCPCS: 36415; 80051; 81001; 82040; 82306; 82310; 82565; 83735; 83970; 84100; 84156; 84520; 85025; 87086

== ENCOUNTER 2023-05-11 11:03 | Inpatient (IN) | payer MEDICARE, MEDICAID, SELFPAY ==
[2023-05-11 11:09] VITALS: BP 101/58; PULSE 88; RESP 14; TEMP 36.4; O2SAT 96; BMI 18.6
[2023-05-11 14:13] VITALS: BP 107/55; PULSE 55; RESP 15; TEMP 36.8; O2SAT 97
--- NOTE | 2023-05-11 14:23 | ED.GENADULT ---
HPI - General Adult General Chief complaint: General Medical Stated complaint: Weakness/Sleeping a lot Time Seen by Provider: 05/11/23 14:22 Source: patient, RN notes reviewed and old records reviewed Mode of arrival: ambulatory History of Present Illness HPI narrative: 73-year-old female with a past medical history of dementia, diabetes, pancreatic lesion, presenting to the ED with family complaining of increased lethargy, decreased p.o. intake, and increased confusion x few days. Sister reports patient has been sleeping for 12-14 hours, not been eating and difficult to control sugars due to p.o. intake. Admit at baseline patient is non conversational, confused. Also reports dark stools. Denies known fever, cough, nausea/vomiting, new diarrhea. No reported falls Onset (ago): day(s) Related Data Home Medications Medication Instructions Recorded Confirmed amlodipine 10 mg tablet 10 mg PO DAILY 01/08/21 02/06/22 memantine 5 mg tablet 5 mg PO BID 01/08/21 02/06/22 metformin 500 mg tablet 500 mg PO BID 01/08/21 02/06/22 risperidone 0.5 mg tablet 0.5 mg PO BID 01/08/21 02/06/22 Previous Rx's Medication Instructions Recorded cefuroxime axetil 500 mg tablet 500 mg PO BID #14 tabs 11/18/22 cephalexin 500 mg capsule 500 mg PO Q6H 7 days #28 caps 12/22/22 cefuroxime axetil 250 mg tablet 250 mg PO BID #14 tabs 03/23/23 Allergies Allergy/AdvReac Type Severity Reaction Status Date / Time penicillin G procaine Allergy Swelling Verified 03/23/23 13:34 Review of Systems Review of Systems: Constitutional: No Fever, No Chills, + Fatigue, No Malaise Cardiovascular: No Chest Pain, No SOB Respiratory: No Cough, No Sputum, No Dyspnea Gastrointestinal: No Nausea, No Vomiting, No Diarrhea, No Constipation, No Abdominal pain Genitourinary: No irregular bleeding, No Dysuria Musculoskeletal: No Joint Swelling Skin: No Skin Lesions, No rash Neuro: No Weakness, +AMS, +lethargy Yes all other systems are reviewed and are negative Constitutional: Constitutional: Reports as per [facility] Past Medical History Attestation statement: The following information was validated with the patient. Source: old records reviewed Medical History Dementia Diabetes Pancreatic lesion Tubular adenoma of colon Surgical History H/O prior ablation treatment Social History Social History Alcohol intake: unknown Patient Tobacco Use Status: Never used Tobacco Advance Directives: No Advance Directives Information Provided: No Physical Exam ED Vital Signs: Vital Signs - 24 hr 05/11/23 11:09 05/11/23 14:13 Temperature 97.5 F 98.2 F Pulse Rate 88 55 Respiratory Rate 14 15 Blood Pressure 101/58 L 107/55 L Pulse Oximetry 96 97 Oxygen Delivery Method Room Air Room Air BMI result Body Mass Index 18.6 Const Other: A&Ox0 (baseline) General: no acute distress Limitations: no limitations HENMT Head: Yes normal to inspection and Yes atraumatic Ears: hearing grossly normal bilaterally General nose exam: Normal external nose present Face and sinus: Yes normal facial exam Eyes General: appearance normal, both eyes and all related structures Pupils: Equal, round and reactive pupils present EOM: EOMs intact bilaterally Neck Neck: Yes normal visual inspection and Yes no meningeal signs Resp Effort & Inspection: normal respiratory effort and no respiratory distress Auscultation: clear to auscultation bilaterally Cardio Rate: regular rate Heart sounds: S1 normal heart sound present and S2 normal heart sound present GI Inspection: Yes normal to inspection Palpation (GI): Soft to palpation, nontender, no guarding and not rigid Skin Rashes: no rashes Wounds: no wounds Neuro General: tone normal, moves all extremities, no meningeal signs and CN's II-XI intact bilaterally Cranial nerves: Yes Equal, round and reactive pupils present Extrem General: Yes normal to inspection and Yes no pedal edema Course Course Course Narrative: CT head/brain wo IV con IMPRESSION: No acute intracranial abnormality. There is global cerebral volume loss with a severe temporal lobe predominance and there is mild chronic microangiopathy. Recommend correlating clinically for Alzheimer's type dementia. -1700 ED care transferred to HINA Ramos pending labs, UA, occult stool, CXR Medications Administered Discontinued Medications Generic Name Dose Route Start Last Admin Trade Name Freq PRN Reason Stop Dose Admin Sodium Chloride 1,000 mls @ 999 mls/hr 05/11/23 15:00 05/11/23 16:32 Ns IV 05/11/23 16:00 999 mls/hr .Q1H1M ROSALIE Administration Medical Decision Making Medical Decision Making MDM Narrative: 73-year-old female with a past medical history of dementia, diabetes, pancreatic lesion, presenting to the ED with family complaining of increased lethargy, decreased p.o. intake, and increased confusion x few days. On exam vital signs stable, NAD, nontoxic appearing, mental status appears at baseline, nonverbal, lungs CTA, abdomen soft/nontender. Concern for dehydration vs metabolic/infectious etiology including pneumonia or UTI vs ?CVA. Low suspicion for ICH without reported falls Plan: EKG, labs, UA, CXR, head CT, IVF Please refer to course for remaining clinical decision making, interpretation of labs/imaging results, and discussions with consultants and/or family members. Differential Diagnosis Differential Diagnoses: The differential diagnosis associated with the presentation includes As above Admission/Observation Consideration of admission/observation: Escalation of care including admission/observation considered Lab Data MDM Lab Attestation statement: I reviewed the patient's lab results. Labs: Lab Results 05/11/23 Range/Units 15:40 POC Glucose 92 (60-115) mg/dL Independent Interpretation I performed an independent interpretation of an: EKG Radiology Impression Discussion of test interpretation with radiology: I have reviewed the radiologist's reading. Independent Historian Clinical information obtained from an independent historian. History obtained from or confirmed by: Other (Family) External Record Review External record reviewed: Inpatient record, Office record, Outpatient record, Prior outpatient labs, Prior outpatient radiology, Primary care record and Outside ED record Tests considered The following testing was considered but not selected: As above Chronic Conditions Patient?s care impacted by: Cancer and Other (For dementia) Discharge Plan Discharge Clinical Impression: Lethargy, Dementia Patient Disposition: Still a Patient Prescriptions: No Action cephalexin 500 mg capsule 500 mg PO Q6H 7 Days Qty: 28 0RF cefuroxime axetil 500 mg tablet 500 mg PO BID Qty: 14 0RF cefuroxime axetil 250 mg tablet 250 mg PO BID Qty: 14 0RF metformin 500 mg tablet 500 mg PO BID memantine 5 mg tablet 5 mg PO BID amlodipine 10 mg tablet 10 mg PO DAILY risperidone 0.5 mg tablet 0.5 mg PO BID
--- NOTE | 2023-05-11 14:52 | ECG_ITS ---
Test Reason : AMS Blood Pressure : / mmHG Vent. Rate : 057 BPM Atrial Rate : 000 BPM P-R Int : 000 ms QRS Dur : 074 ms QT Int : 406 ms P-R-T Axes : 000 038 039 degrees QTc Int : 395 ms Artifact in tracing Probably sinus rhythm /mild bradycardia
--- NOTE | 2023-05-11 15:31 | PC.NURSE ---
per pt's sister and daughter, pt has full blown alzheimers. sister states that the pt has not eaten in 2 days. pt is alert, skin pale, no edema noted.
--- NOTE | 2023-05-11 15:43 | PC.NURSE ---
pt's sister/daughter states that pt takes risperdal 0.5mg at 1500. per mllp (carloz) pt can take home med, risperdal 0.5mg po. risperdal 0.5mg po was given to pt po by pt's sister.
[2023-05-11 18:42] VITALS: BP 108/47; PULSE 56; RESP 14; TEMP 36.5; O2SAT 98
[2023-05-11 20:52] VITALS: PULSE 45; RESP 13
[2023-05-11 23:27] VITALS: BP 114/60; PULSE 42; RESP 14; TEMP 36.4; O2SAT 97
--- NOTE | 2023-05-11 23:28 | MHC.EDTECH ---
This tech assumed care of pt at 2300, Vitals taken, sister is at bedside, Pt is resting at this time. Call gamez within reach
--- NOTE | 2023-05-11 23:57 | ED.GENADULT ---
HPI - General Adult General Chief complaint: General Medical Stated complaint: Weakness/Sleeping a lot Time Seen by Provider: 05/11/23 14:22 Source: patient, RN notes reviewed and old records reviewed Mode of arrival: ambulatory Related Data Home Medications Medication Instructions Recorded Confirmed amlodipine 10 mg tablet 10 mg PO DAILY 01/08/21 02/06/22 memantine 5 mg tablet 5 mg PO BID 01/08/21 02/06/22 metformin 500 mg tablet 500 mg PO BID 01/08/21 02/06/22 risperidone 0.5 mg tablet 0.5 mg PO BID 01/08/21 02/06/22 Previous Rx's Medication Instructions Recorded cefuroxime axetil 500 mg tablet 500 mg PO BID #14 tabs 11/18/22 cephalexin 500 mg capsule 500 mg PO Q6H 7 days #28 caps 12/22/22 cefuroxime axetil 250 mg tablet 250 mg PO BID #14 tabs 03/23/23 Allergies Allergy/AdvReac Type Severity Reaction Status Date / Time penicillin G procaine Allergy Swelling Verified 03/23/23 13:34 [facility] Past Medical History Medical History Dementia Diabetes Pancreatic lesion Tubular adenoma of colon Surgical History H/O prior ablation treatment Social History Social History Alcohol intake: never Patient Tobacco Use Status: Never used Tobacco Smoked in Last 30 Days: No Use of substances other than those prescribed or required for medical reasons: No Advance Directives: No Advance Directives Information Provided: No Physical Exam ED Vital Signs: Vital Signs - 24 hr 05/11/23 11:09 05/11/23 14:13 05/11/23 18:42 Temperature 97.5 F 98.2 F 97.7 F Pulse Rate 88 55 56 Respiratory Rate 14 15 14 Blood Pressure 101/58 L 107/55 L 108/47 L Pulse Oximetry 96 97 98 Oxygen Delivery Method Room Air Room Air Room Air 05/11/23 20:52 05/11/23 23:27 Temperature 97.6 F Pulse Rate 45 L 42 L Respiratory Rate 13 14 Blood Pressure 114/60 Pulse Oximetry 97 Oxygen Delivery Method Room Air BMI result Body Mass Index 18.6 Course Reevaluation(s) Reevaluation #1: Patient received in sign-out at change of shift pending labs, disposition. The patient's labs are without significant abnormality. She does have yeast in her urine. However while on telemetry she was found to have a bradycardia as low as 35. Her blood pressure has been stable while in the ED. However given her increased lethargy will discuss with the hospitalist for admission and possible pacemaker consideration. The patient is not on any beta-blockers or anti arrhythmic medications to explain the heart rate Time: 23:57 Reevaluation #2: Discussed with Dr. Simons who will admit the patient Time: 00:40 Medications Administered Discontinued Medications Generic Name Dose Route Start Last Admin Trade Name Freq PRN Reason Stop Dose Admin Sodium Chloride 1,000 mls @ 999 mls/hr 05/11/23 15:00 05/11/23 17:40 Ns IV 05/11/23 16:00 Infused .Q1H1M ROSALIE Infusion Medical Decision Making Admission/Observation Consideration of admission/observation: Escalation of care including admission/observation considered Consult Healthcare Provider Management of the patient was discussed with: Hospitalist Lab Data MDM Lab Attestation statement: I reviewed the patient's lab results. 05/11/23 17:06 05/11/23 17:06 Labs: Lab Results 05/11/23 05/11/23 05/11/23 Range/Units 15:40 16:53 17:06 WBC 8.8 (4.8-10.8) X10*3/uL RBC 4.09 L (4.20-5.50) X10*6/uL Hgb 12.3 (12.0-16.0) g/dl Hct 38.3 (37.0-47.0) % MCV 93.6 (80.0-98.0) fL MCH 30.1 (27.0-33.0) pg MCHC 32.1 (31.0-35.0) g/dl RDW 13.2 (11.0-16.0) % Plt Count 195 (160-400) X10*3/uL MPV 10.6 (9.4-12.3) fL Immature Gran % (Auto) 0.3 (0.0-0.4) % Neut % (Auto) 64.0 (45-73) % Lymph % (Auto) 27.1 (20-40) % [place] % (Auto) 6.0 (2-11) % Eos % (Auto) 1.8 (0-4) % Baso % (Auto) 0.8 (0-2) % Lymph # (Auto) 2.4 (1.2-4.9) X10*3/uL [place] # (Auto) 0.5 (0.1-1.2) X10*3/uL Eos # (Auto) 0.2 (0.0-0.4) X10*3/uL Baso # (Auto) 0.1 (0.0-0.2) X10*3/uL Abs Immat Gran (auto) 0.03 (0.00-0.03) X10*3/uL Absolute Neuts (auto) 5.6 (2.0-8.3) x10*3/uL Absolute Nucleated RBC 0.000 (0.0-0.012) X10*3/uL Nucleated RBC % (auto) 0.0 (0.0-0.2) /100WBC PT (10.0-13.1) SEC INR (0.9-1.1) Sodium (135-145) mmol/L Potassium (3.3-5.1) mmol/L Chloride (96-108) mmol/L Carbon Dioxide (22-29) mmol/L Anion Gap (12-20) BUN (9-16) mg/dL Creatinine (0.5-1.4) mg/dL Estim Creat Clear Calc Estimated GFR POC Glucose 92 (60-115) mg/dL Random Glucose (60-115) mg/dL Calcium (8.4-10.2) mg/dL Magnesium (1.6-2.6) mg/dL Total Bilirubin (0.0-1.0) mg/dL AST (5-31) U/L ALT (0-31) U/L Alkaline Phosphatase (39-117) U/L Ammonia (13-55) umol/L Troponin I High Sens (<3.5-17.0) ng/L Total Protein (6.5-8.0) g/dL Albumin (3.5-5.0) g/dL Urine Color Urine Appearance Urine pH (5.0-9.0) Ur Specific [place] (1.005-1.025) Urine Protein (Neg-Trace) mg/dL Urine Glucose (UA) (Negative) mg/dL Urine Ketones (Negative) mg/dL Urine Blood (Negative) Urine Nitrite (Negative) Ur Leukocyte Esterase (Negative) Urine RBC (0-2) /HPF Urine WBC (0-5) /HPF Ur Squamous Epith Cells (0-2) /HPF Urine Bacteria (None Seen) Hyaline Casts (0-2) /LPF Urine Yeast Stool Occult Blood NEGATIVE (NEGATIVE) 05/11/23 05/11/23 05/11/23 Range/Units 17:06 17:06 17:06 WBC (4.8-10.8) X10*3/uL RBC (4.20-5.50) X10*6/uL Hgb (12.0-16.0) g/dl Hct (37.0-47.0) % MCV (80.0-98.0) fL MCH (27.0-33.0) pg MCHC (31.0-35.0) g/dl RDW (11.0-16.0) % Plt Count (160-400) X10*3/uL MPV (9.4-12.3) fL Immature Gran % (Auto) (0.0-0.4) % Neut % (Auto) (45-73) % Lymph % (Auto) (20-40) % [place] % (Auto) (2-11) % Eos % (Auto) (0-4) % Baso % (Auto) (0-2) % Lymph # (Auto) (1.2-4.9) X10*3/uL [place] # (Auto) (0.1-1.2) X10*3/uL Eos # (Auto) (0.0-0.4) X10*3/uL Baso # (Auto) (0.0-0.2) X10*3/uL Abs Immat Gran (auto) (0.00-0.03) X10*3/uL Absolute Neuts (auto) (2.0-8.3) x10*3/uL Absolute Nucleated RBC (0.0-0.012) X10*3/uL Nucleated RBC % (auto) (0.0-0.2) /100WBC PT (10.0-13.1) SEC INR (0.9-1.1) Sodium 145 (135-145) mmol/L Potassium 4.4 (3.3-5.1) mmol/L Chloride 110 H (96-108) mmol/L Carbon Dioxide 24 (22-29) mmol/L Anion Gap 15 (12-20) BUN 37 H (9-16) mg/dL Creatinine 0.93 (0.5-1.4) mg/dL Estim Creat Clear Calc 35.5 Estimated GFR 59 POC Glucose (60-115) mg/dL Random Glucose 98 (60-115) mg/dL Calcium 8.7 D (8.4-10.2) mg/dL Magnesium 1.6 (1.6-2.6) mg/dL Total Bilirubin 0.6 (0.0-1.0) mg/dL AST 16 (5-31) U/L ALT 11 (0-31) U/L Alkaline Phosphatase 47 (39-117) U/L Ammonia (13-55) umol/L Troponin I High Sens 5.3 D (<3.5-17.0) ng/L Total Protein 6.6 (6.5-8.0) g/dL Albumin 3.5 (3.5-5.0) g/dL Urine Color Urine Appearance Urine pH (5.0-9.0) Ur Specific [place] (1.005-1.025) Urine Protein (Neg-Trace) mg/dL Urine Glucose (UA) (Negative) mg/dL Urine Ketones (Negative) mg/dL Urine Blood (Negative) Urine Nitrite (Negative) Ur Leukocyte Esterase (Negative) Urine RBC (0-2) /HPF Urine WBC (0-5) /HPF Ur Squamous Epith Cells (0-2) /HPF Urine Bacteria (None Seen) Hyaline Casts (0-2) /LPF Urine Yeast Stool Occult Blood (NEGATIVE) 05/11/23 05/11/23 05/12/23 Range/Units 17:06 17:27 00:19 WBC (4.8-10.8) X10*3/uL RBC (4.20-5.50) X10*6/uL Hgb (12.0-16.0) g/dl Hct (37.0-47.0) % MCV (80.0-98.0) fL MCH (27.0-33.0) pg MCHC (31.0-35.0) g/dl RDW (11.0-16.0) % Plt Count (160-400) X10*3/uL MPV (9.4-12.3) fL Immature Gran % (Auto) (0.0-0.4) % Neut % (Auto) (45-73) % Lymph % (Auto) (20-40) % [place] % (Auto) (2-11) % Eos % (Auto) (0-4) % Baso % (Auto) (0-2) % Lymph # (Auto) (1.2-4.9) X10*3/uL [place] # (Auto) (0.1-1.2) X10*3/uL Eos # (Auto) (0.0-0.4) X10*3/uL Baso # (Auto) (0.0-0.2) X10*3/uL Abs Immat Gran (auto) (0.00-0.03) X10*3/uL Absolute Neuts (auto) (2.0-8.3) x10*3/uL Absolute Nucleated RBC (0.0-0.012) X10*3/uL Nucleated RBC % (auto) (0.0-0.2) /100WBC PT 11.7 (10.0-13.1) SEC INR 1.0 (0.9-1.1) Sodium (135-145) mmol/L Potassium (3.3-5.1) mmol/L Chloride (96-108) mmol/L Carbon Dioxide (22-29) mmol/L Anion Gap (12-20) BUN (9-16) mg/dL Creatinine (0.5-1.4) mg/dL Estim Creat Clear Calc Estimated GFR POC Glucose (60-115) mg/dL Random Glucose (60-115) mg/dL Calcium (8.4-10.2) mg/dL Magnesium (1.6-2.6) mg/dL Total Bilirubin (0.0-1.0) mg/dL AST (5-31) U/L ALT (0-31) U/L Alkaline Phosphatase (39-117) U/L Ammonia 34 (13-55) umol/L Troponin I High Sens (<3.5-17.0) ng/L Total Protein (6.5-8.0) g/dL Albumin (3.5-5.0) g/dL Urine Color Yellow Urine Appearance Cloudy Urine pH 5.5 (5.0-9.0) Ur Specific [place] 1.020 (1.005-1.025) Urine Protein Trace (Neg-Trace) mg/dL Urine Glucose (UA) Negative (Negative) mg/dL Urine Ketones 15 (Negative) mg/dL Urine Blood Negative (Negative) Urine Nitrite Negative (Negative) Ur Leukocyte Esterase Large (3+) H (Negative) Urine RBC 0-2 (0-2) /HPF Urine WBC >50 H (0-5) /HPF Ur Squamous Epith Cells 3-5 (0-2) /HPF Urine Bacteria None Seen (None Seen) Hyaline Casts 3-5 (0-2) /LPF Urine Yeast Present Stool Occult Blood (NEGATIVE) Discharge Plan Discharge Clinical Impression: Lethargy, Dementia, Bradycardia, Acute UTI Patient Disposition: Admitted As Inpatient Prescriptions: No Action cephalexin 500 mg capsule 500 mg PO Q6H 7 Days Qty: 28 0RF cefuroxime axetil 500 mg tablet 500 mg PO BID Qty: 14 0RF cefuroxime axetil 250 mg tablet 250 mg PO BID Qty: 14 0RF metformin 500 mg tablet 500 mg PO BID memantine 5 mg tablet 5 mg PO BID amlodipine 10 mg tablet 10 mg PO DAILY risperidone 0.5 mg tablet 0.5 mg PO BID
[2023-05-12] VITALS (7 sets, daily range): BP systolic 97–122; BP diastolic 56–70; PULSE 49–144; RESP 14–18; TEMP 36.1–37.1; O2SAT 96–100; BMI 18.4
--- NOTE | 2023-05-12 00:04 | MHC.EDTECH ---
This tech was making rounds and walked into pts room and saw that her HR was 35, This tech made RN Judi aware and Atul SANTAMARIA. EKG was ordered and taken.
--- NOTE | 2023-05-12 00:29 | PM.IMHP ---
History of Present Illness Date of Service: 05/12/23 Chief Complaint: AMS This is a 73-year-old female with pertinent history of Alzheimer's dementia, pen-prqikmy-wjlrhctwh diabetes mellitus, essential hypertension, mood disorder was brought to the emergency department for evaluation of lethargy and altered mentation. Unable to obtain any history from the patient due to dementia. Patient is a poor historian. History obtained from daughter at bedside. As per the daughter, for the last 2-3 days, patient has been having increased drowsiness and confusion. Daughter also reported poor p.o. intake. No fevers or chills reported. Unable to obtain review of systems. Does have a history of frequent UTI. Review of Systems Review of Systems: Yes Unobtainable due to mental condition and Unobtainable due to mental status [facility] Medical History Dementia Diabetes Pancreatic lesion Tubular adenoma of colon Pertinent family history: Not significant Surgical History H/O prior ablation treatment Social History Alcohol intake: never Patient Tobacco Use Status: Never used Tobacco Smoked in Last 30 Days: No Use of substances other than those prescribed or required for medical reasons: No Advance Directives: No Advance Directives Information Provided: No Meds Allergies Allergy/AdvReac Type Severity Reaction Status Date / Time penicillin G procaine Allergy Swelling Verified 03/23/23 13:34 Active Medications: Current Medications Pharmacy Consult (Consult Rx Perform Med Rec) 1 each MISCELLANE ONCE PRN PRN Reason: Consult order Home Medications Medication Instructions Recorded Confirmed Last Taken Type amlodipine 10 mg tablet 10 mg PO DAILY 01/08/21 02/06/22 Unknown History memantine 5 mg tablet 5 mg PO BID 01/08/21 02/06/22 Unknown History metformin 500 mg tablet 500 mg PO BID 01/08/21 02/06/22 Unknown History risperidone 0.5 mg tablet 0.5 mg PO BID 01/08/21 02/06/22 Unknown History Physical Exam Vital Signs and Narrative: Vital Signs: Last Vital Signs Temp 97.6 F 05/11/23 23:27 Pulse 42 L 07/03/23 23:27 Resp 14 05/11/23 23:27 BP 114/60 05/11/23 23:27 Pulse Ox 97 05/11/23 23:27 O2 Del Method Room Air 05/11/23 23:27 BMI result Body Mass Index 18.6 Elderly female lying in bed in no distress Neck supple, no JVD Regular rate and rhythm, S1-S2 heard Regular breath sounds bilaterally, no wheezing or crackles appreciated Abdomen soft nontender, no guarding, no rigidity Patient is awake, alert and oriented to self, disoriented to place, time and person ; no focal motor deficit Psych: Normal mood Results Labs 05/11/23 17:06 05/11/23 17:06 Labs: Laboratory Results - last 24 hr 05/11/23 05/11/23 05/11/23 15:40 16:53 17:06 MCV 93.6 MCH 30.1 MCHC 32.1 RDW 13.2 Plt Count 195 MPV 10.6 Immature Gran % (Auto) 0.3 Neut % (Auto) 64.0 Lymph % (Auto) 27.1 [place] % (Auto) 6.0 Eos % (Auto) 1.8 Baso % (Auto) 0.8 Lymph # (Auto) 2.4 [place] # (Auto) 0.5 Eos # (Auto) 0.2 Baso # (Auto) 0.1 Abs Immat Gran (auto) 0.03 Absolute Neuts (auto) 5.6 Absolute Nucleated RBC 0.000 Nucleated RBC % (auto) 0.0 PT INR Anion Gap Estim Creat Clear Calc Estimated GFR POC Glucose 92 Random Glucose Calcium Magnesium Total Bilirubin AST ALT Alkaline Phosphatase Troponin I High Sens Total Protein Albumin Urine Color Urine Appearance Urine pH Ur Specific [place] Urine Protein Urine Glucose (UA) Urine Ketones Urine Blood Urine Nitrite Ur Leukocyte Esterase Urine RBC Urine WBC Ur Squamous Epith Cells Urine Bacteria Hyaline Casts Urine Yeast Stool Occult Blood NEGATIVE 05/11/23 05/11/23 05/11/23 17:06 17:06 17:06 MCV MCH MCHC RDW Plt Count MPV Immature Gran % (Auto) Neut % (Auto) Lymph % (Auto) [place] % (Auto) Eos % (Auto) Baso % (Auto) Lymph # (Auto) [place] # (Auto) Eos # (Auto) Baso # (Auto) Abs Immat Gran (auto) Absolute Neuts (auto) Absolute Nucleated RBC Nucleated RBC % (auto) PT INR Anion Gap 15 Estim Creat Clear Calc 35.5 Estimated GFR 59 POC Glucose Random Glucose 98 Calcium 8.7 D Magnesium 1.6 Total Bilirubin 0.6 AST 16 ALT 11 Alkaline Phosphatase 47 Troponin I High Sens 5.3 D Total Protein 6.6 Albumin 3.5 Urine Color Urine Appearance Urine pH Ur Specific [place] Urine Protein Urine Glucose (UA) Urine Ketones Urine Blood Urine Nitrite Ur Leukocyte Esterase Urine RBC Urine WBC Ur Squamous Epith Cells Urine Bacteria Hyaline Casts Urine Yeast Stool Occult Blood 05/11/23 05/11/23 17:06 17:27 MCV MCH MCHC RDW Plt Count MPV Immature Gran % (Auto) Neut % (Auto) Lymph % (Auto) [place] % (Auto) Eos % (Auto) Baso % (Auto) Lymph # (Auto) [place] # (Auto) Eos # (Auto) Baso # (Auto) Abs Immat Gran (auto) Absolute Neuts (auto) Absolute Nucleated RBC Nucleated RBC % (auto) PT 11.7 INR 1.0 Anion Gap Estim Creat Clear Calc Estimated GFR POC Glucose Random Glucose Calcium Magnesium Total Bilirubin AST ALT Alkaline Phosphatase Troponin I High Sens Total Protein Albumin Urine Color Yellow Urine Appearance Cloudy Urine pH 5.5 Ur Specific [place] 1.020 Urine Protein Trace Urine Glucose (UA) Negative Urine Ketones 15 Urine Blood Negative Urine Nitrite Negative Ur Leukocyte Esterase Large (3+) H Urine RBC 0-2 Urine WBC >50 H Ur Squamous Epith Cells 3-5 Urine Bacteria None Seen Hyaline Casts 3-5 Urine Yeast Present Stool Occult Blood Imaging Radiologist's Impressions: Impressions Head CT 05/11/23 15:53 IMPRESSION: No acute intracranial abnormality. There is global cerebral volume loss with a severe temporal lobe predominance and there is mild chronic microangiopathy. Recommend correlating clinically for Alzheimer's type dementia. Chest X-Ray 05/11/23 17:12 IMPRESSION: Unremarkable chest exam. Assessment and Plan (1) Acute metabolic encephalopathy: Status: Acute Plan This is a 73-year-old female with pertinent history of Alzheimer's dementia, sqh-vmyetly-zzhuqxyoh diabetes mellitus, essential hypertension, mood disorder was brought to the emergency department for evaluation of lethargy and altered mentation. #. Acute metabolic encephalopathy due to acute UTI. Will admit patient and initiate empiric IV antibiotics. Follow urine culture. #. Alzheimer's dementia. Maintain sleep-wake cycle and monitor mentation #. Kfv-biqubvk-xdgojylob diabetes mellitus. Initiating Accu-Cheks with sliding scale insulin. #. Essential hypertension. Hold for now. Restart as appropriate #. Mood disorder. On risperidone b.i.d. #. Sinus bradycardia. HR dropped to the 30s in the ER, BP ok. Will admit with monitoring analyst. Cardiology was consulted from the ER, appreciate assistance. Obtain TSH in am Med rec pending DVT prophylaxis: Lovenox Full code. Discussed with family at bedside Admit as inpatient and will require two night minimum hospital stay for IV abx Time Spent With Patient Time: Total time managing care of this patient today ____ minutes. Quality Stroke Does the patient have a stroke diagnosis?: No VTE Prior VTE?: No VTE Risk Level:: Medical - moderate - high VTE Device Contraindication: Treatment Not Indicated VTE Drug Contraindication: N/A - Med Ordered
--- NOTE | 2023-05-12 01:07 | PC.NURSE ---
Med req completed
--- NOTE | 2023-05-12 04:52 | MHC.EDTECH ---
Late Entry, for 0300am, Patient was repositioned,patient has a pull up on at the request of family, This tech checked for any incontinence. Patient was clean and dry. Family at bedside and call gamez within reach. RN aware
--- NOTE | 2023-05-12 05:09 | PC.NURSE ---
Chaitanya report given to TOBY Kelley as pt is being transferred to room 476. Family at bedside aware of plan of care.
--- NOTE | 2023-05-12 07:41 | PHA.MEDREC ---
Pharmacy Consult ? Medication Reconciliation Pharmacy has completed the medication reconciliation. Pharmacy has reviewed med rec done by nursing
--- NOTE | 2023-05-12 11:08 | PM.CNCAR ---
History of Present Illness History of Present Illness Date of Service: 05/12/23 Chief complaint: AMS Narrative: This is a cardiology consultation regarding question of bradycardia. Try to discuss the patient using bullard operator but she would not understand anything in spite of Norwegian questions. Hence discussed with RN and reviewed the chart. Seems that she has a history of Alzheimer's dementia, multiple other comorbidities like diabetes, hypertension and mood disorder, admitted for lethargy and altered mentation. In this context, she was found to have sinus bradycardia and hence we have been consulted. No history from the patient due to the above issues. Per RN, she had not complained of anything cardiac sounding. There is a lot of artifact on the tracings on telemetry and hence the reading of 130s and around that rate is totally incorrect. Even the resting EKG has lot of artifact. Review of Systems Review of Systems: Unable to obtain review of systems as patient not able to understand anything. [facility] Past Medical History Medical History Dementia Diabetes Pancreatic lesion Tubular adenoma of colon Family History Pertinent family history: Unable to obtain. Surgical History Surgical History H/O prior ablation treatment Social History Social History Household Members: Family Housing: Apartment Do you presently have visiting nurse or other home services: No (pt can't answer this question) Alcohol intake: never Patient Tobacco Use Status: Never used Tobacco Smoked in Last 30 Days: No Patient Interested in Nicotine Replacement: No Patient Given Instructions on How to Stop Smoking: No Second Hand Smoke Exposure: No Use of substances other than those prescribed or required for medical reasons: No Any prior treatment program specific to substance use: No Have you been hit, kicked, punched, or otherwise hurt by someone within the past year? If so, by whom?: No Do you feel safe in your current relationship?: No Current Relationship Is there a partner from a previous relationship who is making you feel unsafe now?: No Are you made to feel afraid or neglected: No Advance Directives: No Advance Directives Information Provided: No Do you have a plan to hurt others: No Plan Recently lost weight without trying: No Eating poorly because of decreased appetite: No Nutrition Risks: Poor intake 0-25% >4 days Patient : No : No Poor oral hygiene: No Meds Allergies Allergy/AdvReac Type Severity Reaction Status Date / Time penicillin G procaine Allergy Swelling Verified 03/23/23 13:34 Active Medications: Current Medications Acetaminophen (Acetaminophen 325 Mg Tablet) 650 mg PO Q6H PRN PRN Reason: Pain, Mild (Pain Scale 1-3) Dextrose (Dextrose 50 % 25 Gm/50 Ml Syringe) 25 gm IVPUSH Q15M PRN; Protocol PRN Reason: per Hypoglycemia Standing Ord. Glucose (Glucose Gel 15 Gm Gel..Gram.) 15 gm PO Q15M PRN; Protocol PRN Reason: per Hypoglycemia Standing Ord. Ceftriaxone Sodium 1 gm/ (Sodium Chloride) 50 mls @ 100 mls/hr IV BEDTIME [facility] Last Infusion: 05/12/23 02:58 Dose: Infused Insulin Human Lispro (Insulin Lispro 100 Unit/Ml 3 Ml Vial) 0 unit SUBCUT QIDACHS [facility]; Protocol Last Admin: 05/12/23 08:18 Dose: Not Given Melatonin (Melatonin 3 Mg Tablet) 6 mg PO BEDTIME PRN PRN Reason: Insomnia Memantine (Memantine Hcl 5 Mg Tablet) 5 mg PO BID [facility] Last Admin: 05/12/23 10:21 Dose: 5 mg Ondansetron HCl (Ondansetron Hcl 4 Mg/2 Ml Vial) 4 mg IVPUSH Q8H PRN PRN Reason: Nausea and Vomiting Pharmacy Consult (Consult Rx Perform Med Rec) 1 each MISCELLANE ONCE PRN PRN Reason: Consult order Sodium Chloride (0.9 % Sodium Chloride Flush 3 Ml Syringe) 3 ml IVFLUSH QSHIFT [facility] Last Admin: 05/12/23 10:21 Dose: 3 ml Vitamin D (Cholecalciferol (Vitamin D3) 25 Mcg Tablet) 50 mcg PO DAILY [facility] Last Admin: 05/12/23 10:21 Dose: 50 mcg Home Medications Medication Instructions Recorded Confirmed Last Taken Type amlodipine 10 mg tablet 10 mg PO DAILY 01/08/21 05/12/23 Unknown History memantine 5 mg tablet 5 mg PO BID 01/08/21 05/12/23 Unknown History metformin 500 mg tablet 500 mg PO BIDWM 01/08/21 05/12/23 Unknown History risperidone 0.5 mg tablet 0.5 mg PO BID 01/08/21 05/12/23 Unknown History cholecalciferol (vitamin D3) 50 50 mcg PO DAILY 05/12/23 05/12/23 Unknown History mcg (2,000 unit) capsule risperidone 0.5 mg tablet 0.5 mg PO DAILY PRN mood 05/12/23 05/12/23 Unknown History Physical Exam Vital Signs: Vital Signs: Last Vital Signs Temp 97.5 F 05/12/23 07:14 Pulse 125 H 05/12/23 07:14 Resp 16 05/12/23 07:14 BP 122/61 05/12/23 07:14 Pulse Ox 97 05/12/23 07:14 O2 Del Method Room Air 05/12/23 07:14 BMI result Body Mass Index 18.4 Const: General: comfortable and no acute distress Orientation/consciousness: No patient oriented x3 HEENT: Other: Unremarkable Head: Yes normal to inspection Neck: Neck: Yes normal visual inspection Chest: Chest palpation & inspection: normal inspection of the chest Resp: Auscultation: clear to auscultation bilaterally Cardio: Palpation: normal PMI Heart sounds: S1 normal heart sound present, S2 normal heart sound present, no gallops, no murmurs and no rubs GI: Palpation (GI): Soft to palpation Back/Spine/Pelvis: Other: unremarkable Skin: General skin exam: no rashes or lesions noted Neuro: General: No patient oriented x3 Extrem: General: Yes normal to inspection Psych: Mental Status: mental status grossly abnormal Objective Labs and Meds 05/12/23 06:55 05/12/23 06:55 Lab results: Laboratory Results - last 24 hr 05/11/23 05/11/23 05/11/23 15:40 16:53 17:06 WBC 8.8 RBC 4.09 L Hgb 12.3 Hct 38.3 MCV 93.6 MCH 30.1 MCHC 32.1 RDW 13.2 Plt Count 195 MPV 10.6 Immature Gran % (Auto) 0.3 Neut % (Auto) 64.0 Lymph % (Auto) 27.1 [place] % (Auto) 6.0 Eos % (Auto) 1.8 Baso % (Auto) 0.8 Lymph # (Auto) 2.4 [place] # (Auto) 0.5 Eos # (Auto) 0.2 Baso # (Auto) 0.1 Abs Immat Gran (auto) 0.03 Absolute Neuts (auto) 5.6 Absolute Nucleated RBC 0.000 Nucleated RBC % (auto) 0.0 PT INR Sodium Potassium Chloride Carbon Dioxide Anion Gap BUN Creatinine Estim Creat Clear Calc Estimated GFR POC Glucose 92 Random Glucose Calcium Magnesium Total Bilirubin AST ALT Alkaline Phosphatase Ammonia Troponin I High Sens Total Protein Albumin TSH Urine Color Urine Appearance Urine pH Ur Specific [place] Urine Protein Urine Glucose (UA) Urine Ketones Urine Blood Urine Nitrite Ur Leukocyte Esterase Urine RBC Urine WBC Ur Squamous Epith Cells Urine Bacteria Hyaline Casts Urine Yeast Stool Occult Blood NEGATIVE 05/11/23 05/11/23 05/11/23 17:06 17:06 17:06 WBC RBC Hgb Hct MCV MCH MCHC RDW Plt Count MPV Immature Gran % (Auto) Neut % (Auto) Lymph % (Auto) [place] % (Auto) Eos % (Auto) Baso % (Auto) Lymph # (Auto) [place] # (Auto) Eos # (Auto) Baso # (Auto) Abs Immat Gran (auto) Absolute Neuts (auto) Absolute Nucleated RBC Nucleated RBC % (auto) PT INR Sodium 145 Potassium 4.4 Chloride 110 H Carbon Dioxide 24 Anion Gap 15 BUN 37 H Creatinine 0.93 Estim Creat Clear Calc 35.5 Estimated GFR 59 POC Glucose Random Glucose 98 Calcium 8.7 D Magnesium 1.6 Total Bilirubin 0.6 AST 16 ALT 11 Alkaline Phosphatase 47 Ammonia Troponin I High Sens 5.3 D Total Protein 6.6 Albumin 3.5 TSH Urine Color Urine Appearance Urine pH Ur Specific [place] Urine Protein Urine Glucose (UA) Urine Ketones Urine Blood Urine Nitrite Ur Leukocyte Esterase Urine RBC Urine WBC Ur Squamous Epith Cells Urine Bacteria Hyaline Casts Urine Yeast Stool Occult Blood 05/11/23 05/11/23 05/12/23 17:06 17:27 00:19 WBC RBC Hgb Hct MCV MCH MCHC RDW Plt Count MPV Immature Gran % (Auto) Neut % (Auto) Lymph % (Auto) [place] % (Auto) Eos % (Auto) Baso % (Auto) Lymph # (Auto) [place] # (Auto) Eos # (Auto) Baso # (Auto) Abs Immat Gran (auto) Absolute Neuts (auto) Absolute Nucleated RBC Nucleated RBC % (auto) PT 11.7 INR 1.0 Sodium Potassium Chloride Carbon Dioxide Anion Gap BUN Creatinine Estim Creat Clear Calc Estimated GFR POC Glucose Random Glucose Calcium Magnesium Total Bilirubin AST ALT Alkaline Phosphatase Ammonia 34 Troponin I High Sens Total Protein Albumin TSH Urine Color Yellow Urine Appearance Cloudy Urine pH 5.5 Ur Specific [place] 1.020 Urine Protein Trace Urine Glucose (UA) Negative Urine Ketones 15 Urine Blood Negative Urine Nitrite Negative Ur Leukocyte Esterase Large (3+) H Urine RBC 0-2 Urine WBC >50 H Ur Squamous Epith Cells 3-5 Urine Bacteria None Seen Hyaline Casts 3-5 Urine Yeast Present Stool Occult Blood 05/12/23 05/12/23 05/12/23 06:55 06:55 06:55 WBC 10.0 RBC 4.22 Hgb 12.8 Hct 39.8 MCV 94.3 MCH 30.3 MCHC 32.2 RDW 13.1 Plt Count 198 MPV 10.8 Immature Gran % (Auto) 0.4 Neut % (Auto) 66.8 Lymph % (Auto) 23.3 [place] % (Auto) 6.2 Eos % (Auto) 2.6 Baso % (Auto) 0.7 Lymph # (Auto) 2.3 [place] # (Auto) 0.6 Eos # (Auto) 0.3 Baso # (Auto) 0.1 Abs Immat Gran (auto) 0.04 H Absolute Neuts (auto) 6.6 Absolute Nucleated RBC 0.000 Nucleated RBC % (auto) 0.0 PT INR Sodium 145 Potassium 4.1 Chloride 109 H Carbon Dioxide 25 Anion Gap 15 BUN 28 H Creatinine 0.78 Estim Creat Clear Calc 42.0 Estimated GFR > 60 POC Glucose Random Glucose 95 Calcium 9.3 D Magnesium Total Bilirubin AST ALT Alkaline Phosphatase Ammonia Troponin I High Sens Total Protein Albumin TSH 1.77 Urine Color Urine Appearance Urine pH Ur Specific [place] Urine Protein Urine Glucose (UA) Urine Ketones Urine Blood Urine Nitrite Ur Leukocyte Esterase Urine RBC Urine WBC Ur Squamous Epith Cells Urine Bacteria Hyaline Casts Urine Yeast Stool Occult Blood 05/12/23 07:17 WBC RBC Hgb Hct MCV MCH MCHC RDW Plt Count MPV Immature Gran % (Auto) Neut % (Auto) Lymph % (Auto) [place] % (Auto) Eos % (Auto) Baso % (Auto) Lymph # (Auto) [place] # (Auto) Eos # (Auto) Baso # (Auto) Abs Immat Gran (auto) Absolute Neuts (auto) Absolute Nucleated RBC Nucleated RBC % (auto) PT INR Sodium Potassium Chloride Carbon Dioxide Anion Gap BUN Creatinine Estim Creat Clear Calc Estimated GFR POC Glucose 79 Random Glucose Calcium Magnesium Total Bilirubin AST ALT Alkaline Phosphatase Ammonia Troponin I High Sens Total Protein Albumin TSH Urine Color Urine Appearance Urine pH Ur Specific [place] Urine Protein Urine Glucose (UA) Urine Ketones Urine Blood Urine Nitrite Ur Leukocyte Esterase Urine RBC Urine WBC Ur Squamous Epith Cells Urine Bacteria Hyaline Casts Urine Yeast Stool Occult Blood ECG Interpretation: EKG as well as tele has lot of baseline artifact. Suspect just sinus rhythm/sinus bradycardia with some prolongation of OR. Do not see any high-grade heart blocks. Readings of 120s, 130s are all artifact. Imaging Radiologist's impression: Impressions Head CT 05/11/23 15:53 IMPRESSION: No acute intracranial abnormality. There is global cerebral volume loss with a severe temporal lobe predominance and there is mild chronic microangiopathy. Recommend correlating clinically for Alzheimer's type dementia. Chest X-Ray 05/11/23 17:12 IMPRESSION: Unremarkable chest exam. Assessment and Plan (1) Bradycardia: Status: Acute (2) Acute metabolic encephalopathy: Status: Acute (3) Dementia: Status: Acute Plan Overall, patient has significant dementia and could not communicate. From the cardiac standpoint, evidence of mild sinus bradycardia which is not contributing to her issues at this time. There is extensive artifact and hence lot of incorrect readings. Vital signs over 100 also in correct. Considering comorbidities, conservative care only. If any offending medications from the psychiatric standpoint, may consider stopping that. No indication for pacemaker at this time. Discussed with Dr. Carson. Time Spent With Patient Time: Total time managing care of this patient today ____ minutes. Procedures Date of Service Date of Service: 05/12/23
--- NOTE | 2023-05-12 12:45 | HO.PM.IMPN ---
Subjective Subjective Date of Service: 05/12/23 Interval History: This history was taken in Green[place]ic from the patient. Unable to obtain ROS due to severe dementia Bradycardic Review of Systems Review of Systems: Yes Unobtainable due to mental status Physical Exam Vital Signs: Vital Signs: Last Vital Signs Temp 97.7 F 05/12/23 11:09 Pulse 50 05/12/23 11:09 Resp 16 05/12/23 11:09 BP 114/64 05/12/23 11:09 Pulse Ox 100 05/12/23 11:09 O2 Del Method Room Air 05/12/23 11:09 BMI result Body Mass Index 18.4 Gen: in no acute distress HEENT: sclera anicteric, moist mucus membranes Neck: supple Lungs: clear to auscultation bilaterally Heart: regular rate and rhythm, no murmurs Abd: soft, non-tender, non-distended Ext: no edema Skin: warm/well-perfused Neuro: alert, unable to assess orientation Psych: impaired insight Objective Data Active Medications Acetaminophen (Acetaminophen 325 Mg Tablet) 650 mg PO Q6H PRN PRN Reason: Pain, Mild (Pain Scale 1-3) Dextrose (Dextrose 50 % 25 Gm/50 Ml Syringe) 25 gm IVPUSH Q15M PRN; Protocol PRN Reason: per Hypoglycemia Standing Ord. Glucose (Glucose Gel 15 Gm Gel..Gram.) 15 gm PO Q15M PRN; Protocol PRN Reason: per Hypoglycemia Standing Ord. Ceftriaxone Sodium 1 gm/ (Sodium Chloride) 50 mls @ 100 mls/hr IV BEDTIME [facility] Last Infusion: 05/12/23 02:58 Dose: 0 mls/hr Documented By: BESSIE Insulin Human Lispro (Insulin Lispro 100 Unit/Ml 3 Ml Vial) 0 unit SUBCUT QIDACHS [facility]; Protocol Last Admin: 05/12/23 11:14 Dose: Not Given Documented By: EVANGELISTA Non-Admin Reason: No Insulin Coverage Melatonin (Melatonin 3 Mg Tablet) 6 mg PO BEDTIME PRN PRN Reason: Insomnia Memantine (Memantine Hcl 5 Mg Tablet) 5 mg PO BID [facility] Last Admin: 05/12/23 10:21 Dose: 5 mg Documented By: EVANGELISTA Ondansetron HCl (Ondansetron Hcl 4 Mg/2 Ml Vial) 4 mg IVPUSH Q8H PRN PRN Reason: Nausea and Vomiting Pharmacy Consult (Consult Rx Perform Med Rec) 1 each MISCELLANE ONCE PRN PRN Reason: Consult order Sodium Chloride (0.9 % Sodium Chloride Flush 3 Ml Syringe) 3 ml IVFLUSH QSHIFT [facility] Last Admin: 05/12/23 10:21 Dose: 3 ml Documented By: EVANGELISTA Vitamin D (Cholecalciferol (Vitamin D3) 25 Mcg Tablet) 50 mcg PO DAILY [facility] Last Admin: 05/12/23 10:21 Dose: 50 mcg Documented By: EVANGELISTA Labs 05/12/23 06:55 05/12/23 06:55 Labs: Laboratory Results - last 24 hr 05/11/23 05/11/23 05/11/23 15:40 16:53 17:06 MCV 93.6 MCH 30.1 MCHC 32.1 RDW 13.2 Plt Count 195 MPV 10.6 Immature Gran % (Auto) 0.3 Neut % (Auto) 64.0 Lymph % (Auto) 27.1 [place] % (Auto) 6.0 Eos % (Auto) 1.8 Baso % (Auto) 0.8 Lymph # (Auto) 2.4 [place] # (Auto) 0.5 Eos # (Auto) 0.2 Baso # (Auto) 0.1 Abs Immat Gran (auto) 0.03 Absolute Neuts (auto) 5.6 Absolute Nucleated RBC 0.000 Nucleated RBC % (auto) 0.0 PT INR Anion Gap Estim Creat Clear Calc Estimated GFR POC Glucose 92 Random Glucose Calcium Magnesium Total Bilirubin AST ALT Alkaline Phosphatase Ammonia Troponin I High Sens Total Protein Albumin TSH Urine Color Urine Appearance Urine pH Ur Specific [place] Urine Protein Urine Glucose (UA) Urine Ketones Urine Blood Urine Nitrite Ur Leukocyte Esterase Urine RBC Urine WBC Ur Squamous Epith Cells Urine Bacteria Hyaline Casts Urine Yeast Stool Occult Blood NEGATIVE 05/11/23 05/11/23 05/11/23 17:06 17:06 17:06 MCV MCH MCHC RDW Plt Count MPV Immature Gran % (Auto) Neut % (Auto) Lymph % (Auto) [place] % (Auto) Eos % (Auto) Baso % (Auto) Lymph # (Auto) [place] # (Auto) Eos # (Auto) Baso # (Auto) Abs Immat Gran (auto) Absolute Neuts (auto) Absolute Nucleated RBC Nucleated RBC % (auto) PT INR Anion Gap 15 Estim Creat Clear Calc 35.5 Estimated GFR 59 POC Glucose Random Glucose 98 Calcium 8.7 D Magnesium 1.6 Total Bilirubin 0.6 AST 16 ALT 11 Alkaline Phosphatase 47 Ammonia Troponin I High Sens 5.3 D Total Protein 6.6 Albumin 3.5 TSH Urine Color Urine Appearance Urine pH Ur Specific [place] Urine Protein Urine Glucose (UA) Urine Ketones Urine Blood Urine Nitrite Ur Leukocyte Esterase Urine RBC Urine WBC Ur Squamous Epith Cells Urine Bacteria Hyaline Casts Urine Yeast Stool Occult Blood 05/11/23 05/11/23 05/12/23 17:06 17:27 00:19 MCV MCH MCHC RDW Plt Count MPV Immature Gran % (Auto) Neut % (Auto) Lymph % (Auto) [place] % (Auto) Eos % (Auto) Baso % (Auto) Lymph # (Auto) [place] # (Auto) Eos # (Auto) Baso # (Auto) Abs Immat Gran (auto) Absolute Neuts (auto) Absolute Nucleated RBC Nucleated RBC % (auto) PT 11.7 INR 1.0 Anion Gap Estim Creat Clear Calc Estimated GFR POC Glucose Random Glucose Calcium Magnesium Total Bilirubin AST ALT Alkaline Phosphatase Ammonia 34 Troponin I High Sens Total Protein Albumin TSH Urine Color Yellow Urine Appearance Cloudy Urine pH 5.5 Ur Specific [place] 1.020 Urine Protein Trace Urine Glucose (UA) Negative Urine Ketones 15 Urine Blood Negative Urine Nitrite Negative Ur Leukocyte Esterase Large (3+) H Urine RBC 0-2 Urine WBC >50 H Ur Squamous Epith Cells 3-5 Urine Bacteria None Seen Hyaline Casts 3-5 Urine Yeast Present Stool Occult Blood 05/12/23 05/12/23 05/12/23 06:55 06:55 06:55 MCV 94.3 MCH 30.3 MCHC 32.2 RDW 13.1 Plt Count 198 MPV 10.8 Immature Gran % (Auto) 0.4 Neut % (Auto) 66.8 Lymph % (Auto) 23.3 [place] % (Auto) 6.2 Eos % (Auto) 2.6 Baso % (Auto) 0.7 Lymph # (Auto) 2.3 [place] # (Auto) 0.6 Eos # (Auto) 0.3 Baso # (Auto) 0.1 Abs Immat Gran (auto) 0.04 H Absolute Neuts (auto) 6.6 Absolute Nucleated RBC 0.000 Nucleated RBC % (auto) 0.0 PT INR Anion Gap 15 Estim Creat Clear Calc 42.0 Estimated GFR > 60 POC Glucose Random Glucose 95 Calcium 9.3 D Magnesium Total Bilirubin AST ALT Alkaline Phosphatase Ammonia Troponin I High Sens Total Protein Albumin TSH 1.77 Urine Color Urine Appearance Urine pH Ur Specific [place] Urine Protein Urine Glucose (UA) Urine Ketones Urine Blood Urine Nitrite Ur Leukocyte Esterase Urine RBC Urine WBC Ur Squamous Epith Cells Urine Bacteria Hyaline Casts Urine Yeast Stool Occult Blood 05/12/23 05/12/23 07:17 11:05 MCV MCH MCHC RDW Plt Count MPV Immature Gran % (Auto) Neut % (Auto) Lymph % (Auto) [place] % (Auto) Eos % (Auto) Baso % (Auto) Lymph # (Auto) [place] # (Auto) Eos # (Auto) Baso # (Auto) Abs Immat Gran (auto) Absolute Neuts (auto) Absolute Nucleated RBC Nucleated RBC % (auto) PT INR Anion Gap Estim Creat Clear Calc Estimated GFR POC Glucose 79 116 H Random Glucose Calcium Magnesium Total Bilirubin AST ALT Alkaline Phosphatase Ammonia Troponin I High Sens Total Protein Albumin TSH Urine Color Urine Appearance Urine pH Ur Specific [place] Urine Protein Urine Glucose (UA) Urine Ketones Urine Blood Urine Nitrite Ur Leukocyte Esterase Urine RBC Urine WBC Ur Squamous Epith Cells Urine Bacteria Hyaline Casts Urine Yeast Stool Occult Blood Microbiology Microbiology Results: Microbiology 05/11/23 Unknown Urine Culture - Preliminary Urine clean catch - Urine jones top Gram negative ling Assessment and Plan (1) Acute UTI: Status: Acute (2) Bradycardia: Status: Acute Plan d#1 73yo F with Alzheimer dementia, DM2, HTN, mood disorder admitted for encephalopathy due to UTI # acute met enceph due to UTI - ceftriax d#1, follow UCx # bradycardia - hold memantine + risperidone, Card consult # HTN - hold amlodipine # DM2 - correction-dose lispro, DM diet # mild pr-rose malnutrtion - supplements # VTE ppx: LMWH # dispo: TBD In my clinical judgment, the patient requires continued inpatient hospitalization for the following reasons: IV ABX Time Spent With Patient Time: Total time managing care of this patient today ____ minutes. 35 Quality Stroke Does the patient have a stroke diagnosis?: No VTE Prior VTE?: No VTE Risk Level:: Medical - moderate - high VTE Device Contraindication: Treatment Not Indicated VTE Drug Contraindication: N/A - Med Ordered
[2023-05-13 03:32] VITALS: BP 135/76; PULSE 52; RESP 20; TEMP 36.4; O2SAT 94
[2023-05-13 07:23] VITALS: BP 144/67; PULSE 72; RESP 20; TEMP 36.1; O2SAT 96
--- NOTE | 2023-05-13 09:53 | MHC.CM.PN ---
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 PCP VERIFIED SHIRLEY DAVILA, HCP/DTR SHERLYN [phone] AND COPY REQUESTED. ANTIC PT MAY BE CLEARED FOR D/C LATER TODAY W/RESUMP OF 24HR CARE AND NEW HOME PT W/PREF HVNA, DTR SHERLYN WILL TRANSPORT
[2023-05-13 11:57] VITALS: BP 112/68; PULSE 53; RESP 19; TEMP 36.1; O2SAT 98
--- NOTE | 2023-05-13 12:44 | PM.DS ---
DS: Providers Provider Date of Service: 05/13/23 Date of admission: 05/12/23 00:27 Date of discharge: 05/13/23 Primary care physician: Aimee Velásquez MD Consults: 05/12/23 00:40 Consult to Cardiology Routine Consulting Provider: [facility] Reason for consultation: sinus bradycardia DS: Diagnosis Discharge Diagnosis (1) Acute UTI: Status: Acute (2) Bradycardia: Status: Acute (3) Encephalopathy due to infection: Status: Acute (4) Dementia: Status: Acute DS: Summary Hospital Course Hospital Course: from admit H+P by hospitalist Toñito Simons MD 05/12/23: This is a 73-year-old female with pertinent history of Alzheimer's dementia, xpc-wcnxheh-toaconpyr diabetes mellitus, essential hypertension, mood disorder was brought to the emergency department for evaluation of lethargy and altered mentation.? Unable to obtain any history from the patient due to dementia.? Patient is a poor historian.? History obtained from daughter at bedside.? As per the daughter, for the last 2-3 days, patient has been having increased drowsiness and confusion.? Daughter also reported poor p.o. intake.? No fevers or chills reported.? Unable to obtain review of systems.? Does have a history of frequent UTI. 73yo F with Alzheimer dementia, DM2, HTN, mood disorder admitted for encephalopathy due to UTI. Blood cultures negative. Urine culture grew E. coli resistant to ampicillin. Treated with 2 days of IV ceftriaxone and discharged on 5 days of PO cefuroxime. Mental status returned to baseline. Due to bradycardia, recommended stopping memantine and using risperidone only on a prn basis, not standing. Discharged home with VNA services and to resume 01/06 family care. Time Spent with Patient Time attestation: Total time managing care of this patient today ___35_ minutes. Discharge coordination time: Greater than 30 minutes Quality: Safe Use of Opioids Does Pt have an Active Cancer Diagnosis on the Problem List?: No Quality: Stroke Does the patient have a stroke diagnosis?: No Physical Exam Vital Signs: Vital Signs: Last Vital Signs Temp 97 F 05/13/23 11:57 Pulse 53 05/13/23 11:57 Resp 19 05/13/23 11:57 BP 112/68 05/13/23 11:57 Pulse Ox 98 05/13/23 11:57 O2 Del Method Room Air 05/13/23 11:57 BMI result Body Mass Index 18.4 Gen: in no acute distress HEENT: sclera anicteric, moist mucus membranes Neck: supple Lungs: clear to auscultation bilaterally Heart: regular rate and rhythm, no murmurs Abd: soft, non-tender, non-distended Ext: no edema Skin: warm/well-perfused Neuro: alert, unable to assess orientation Psych: impaired insight DS: Data Data Completed and Pending Completed studies during hospitalization [Text1]: Laboratory Results WBC 9.7 X10*3/uL (4.8-10.8) 05/13/23 06:28 RBC 4.44 X10*6/uL (4.20-5.50) 05/13/23 06:28 Hgb 13.5 g/dl (12.0-16.0) 05/13/23 06:28 Hct 41.0 % (37.0-47.0) 05/13/23 06:28 MCV 92.3 fL (80.0-98.0) 05/13/23 06:28 MCH 30.4 pg (27.0-33.0) 05/13/23 06:28 MCHC 32.9 g/dl (31.0-35.0) 05/13/23 06:28 RDW 13.0 % (11.0-16.0) 05/13/23 06:28 Plt Count 189 X10*3/uL (160-400) 05/13/23 06:28 MPV 11.5 fL (9.4-12.3) 05/13/23 06:28 Immature Gran % (Auto) 0.4 % (0.0-0.4) 05/12/23 06:55 Neut % (Auto) 66.8 % (45-73) 05/12/23 06:55 Lymph % (Auto) 23.3 % (20-40) 05/12/23 06:55 [place] % (Auto) 6.2 % (2-11) 05/12/23 06:55 Eos % (Auto) 2.6 % (0-4) 05/12/23 06:55 Baso % (Auto) 0.7 % (0-2) 05/12/23 06:55 Lymph # (Auto) 2.3 X10*3/uL (1.2-4.9) 05/12/23 06:55 [place] # (Auto) 0.6 X10*3/uL (0.1-1.2) 05/12/23 06:55 Eos # (Auto) 0.3 X10*3/uL (0.0-0.4) 05/12/23 06:55 Baso # (Auto) 0.1 X10*3/uL (0.0-0.2) 05/12/23 06:55 Abs Immat Gran (auto) 0.04 X10*3/uL (0.00-0.03) H 05/12/23 06:55 Absolute Neuts (auto) 6.6 x10*3/uL (2.0-8.3) 05/12/23 06:55 Absolute Nucleated RBC 0.000 X10*3/uL (0.0-0.012) 05/13/23 06:28 Nucleated RBC % (auto) 0.0 /100WBC (0.0-0.2) 05/13/23 06:28 PT 11.7 SEC (10.0-13.1) 05/11/23 17:06 INR 1.0 (0.9-1.1) 05/11/23 17:06 Sodium 142 mmol/L (135-145) 05/13/23 06:28 Potassium 3.6 mmol/L (3.3-5.1) 05/13/23 06:28 Chloride 108 mmol/L (96-108) 05/13/23 06:28 Carbon Dioxide 24 mmol/L (22-29) 05/13/23 06:28 Anion Gap 14 (12-20) 05/13/23 06:28 BUN 21 mg/dL (9-16) H 05/13/23 06:28 Creatinine 0.75 mg/dL (0.5-1.4) 05/13/23 06:28 Estim Creat Clear Calc 43.6 05/13/23 06:28 Estimated GFR > 60 05/13/23 06:28 POC Glucose 160 mg/dL (60-115) H 05/13/23 11:14 Random Glucose 88 mg/dL (60-115) 05/13/23 06:28 Calcium 8.9 mg/dL (8.4-10.2) 05/13/23 06:28 Magnesium 1.7 mg/dL (1.6-2.6) 05/13/23 06:28 Total Bilirubin 0.6 mg/dL (0.0-1.0) 05/11/23 17:06 AST 16 U/L (5-31) 05/11/23 17:06 ALT 11 U/L (0-31) 05/11/23 17:06 Alkaline Phosphatase 47 U/L (39-117) 05/11/23 17:06 Ammonia 34 umol/L (13-55) 05/12/23 00:19 Troponin I High Sens 5.3 ng/L (<3.5-17.0) D 05/11/23 17:06 Total Protein 6.6 g/dL (6.5-8.0) 05/11/23 17:06 Albumin 3.5 g/dL (3.5-5.0) 05/11/23 17:06 TSH 1.77 uIU/mL (0.32-4.0) 05/12/23 06:55 Urine Color Yellow 05/11/23 17:27 Urine Appearance Cloudy 05/11/23 17:27 Urine pH 5.5 (5.0-9.0) 05/11/23 17:27 Ur Specific [place] 1.020 (1.005-1.025) 05/11/23 17:27 Urine Protein Trace mg/dL (Neg-Trace) 05/11/23 17:27 Urine Glucose (UA) Negative mg/dL (Negative) 05/11/23 17:27 Urine Ketones 15 mg/dL (Negative) 05/11/23 17:27 Urine Blood Negative (Negative) 05/11/23 17:27 Urine Nitrite Negative (Negative) 05/11/23 17:27 Ur Leukocyte Esterase Large (3+) (Negative) H 05/11/23 17:27 Urine RBC 0-2 /HPF (0-2) 05/11/23 17:27 Urine WBC >50 /HPF (0-5) H 05/11/23 17:27 Ur Squamous Epith Cells 3-5 /HPF (0-2) 05/11/23 17:27 Urine Bacteria None Seen (None Seen) 05/11/23 17:27 Hyaline Casts 3-5 /LPF (0-2) 05/11/23 17:27 Urine Yeast Present 05/11/23 17:27 Stool Occult Blood NEGATIVE (NEGATIVE) 05/11/23 16:[address] 05/11/23 15:53 IMPRESSION: No acute intracranial abnormality. There is global cerebral volume loss with a severe temporal lobe predominance and there is mild chronic microangiopathy. Recommend correlating clinically for Alzheimer's type dementia. Chest X-Ray 05/11/23 17:12 IMPRESSION: Unremarkable chest exam. Discharge Plan Discharge Anticipated Discharge Date/Time: 05/13/23 12:39 Patient Disposition: Home Health Service Discharge Diagnosis: encephalopathy due to UTI bradycardia dementia Referrals: Aimee Adrian MD [Primary Care Provider] - 1 Week Discharge Medications: New cefuroxime axetil 500 mg tablet 500 mg PO BID Qty: 10 0RF Continued cholecalciferol (vitamin D3) 50 mcg (2,000 unit) capsule 50 mcg PO DAILY risperidone 0.5 mg tablet 0.5 mg PO DAILY PRN (Reason: mood) metformin 500 mg tablet 500 mg PO BIDWM amlodipine 10 mg tablet 10 mg PO DAILY Discontinued memantine 5 mg tablet 5 mg PO BID risperidone 0.5 mg tablet 0.5 mg PO BID Discharge Orders: Discharge Order (Routine); Ordered 05/13/23 Ordered By: Zenon Carson Diet: Advance to usual diet Activity on Discharge: As tolerated Stand Alone Forms: Patient Portal Discharge page Care Plan Goals: prior mental status Health Concerns: encephalopathy due to UTI bradycardia dementia Plan of Treatment: take cefuroxime 500 mg twice daily for 5 days stop memantine. use risperidon only as needed, not standing Please follow up with your primary care doctor within 1 week. Return to the hospital if you experience recurrent or worsening symptoms. Assessment: See Discharge Summary.
--- NOTE | 2023-05-13 12:47 | W.MHC.F2F ---
Service Date Service Date: 05/13/23 Encounter Date of encounter: 05/13/23 Reasons for Services Signs and symptoms assessed: balance gait Reason for physical therapy: home safety and mobility, therapeutic exercises, gait/transfer training, assess need for DME, ADL training and energy conservation MD Overseeing Care: Aimee Velásquez Homebound: Leaving the home is medically contraindicated at this time without the asist of a device and/or another person due th the listed conditions above and below. Reason homebound: unsteady gait / fall risk and cognitively impaired / unsafe Certification: Based on the above findings, I certify that this patient is confined to the home and needs intermittent group home care, physical therapy and/or speech therapy, or continues to need occupational therapy. The patient is under my care, and I have initiated the establishment of the plan of care. The patient will be followed by a physician who will periodically review the plan of care. Time Spent With Patient Time: Total time managing care of this patient today ____ minutes.
--- NOTE | 2023-05-13 13:49 | MHC.CM.PN ---
PT MEDICALLY CLEARED FOR D/C HOME W/24HR FAMILY SUPPORT, [facility] IRRIGATION FLUME LAYER AND NEW [facility] FOR HOME PT, [facility]TR AT BEDSIDE WILL TRANSPORT
== END 2023-05-13 14:13 | disposition home health service (06) | DRG 689 ==
LOC: HO.ED 05-12 00:41 → HO.EDOVER 05-12 02:17 → HO.IMC 05-12 04:05
PROVIDERS: Admitting Provider Student in an Organized Health Care Education/Training Program; Emergency Provider Emergency Medicine Emergency Medical Services; PCP Internal Medicine; Visit Provider Family Medicine
DX: N39.0 Urinary tract infection, site not specified (principal); G93.41 Metabolic encephalopathy; E44.1 Mild protein-calorie malnutrition; Z68.1 Body mass index [BMI] 19.9 or less, adult; Z16.11 Resistance to penicillins; B96.20 Unspecified Escherichia coli [E. coli] as the cause of diseases classified elsewhere; F39 Unspecified mood [affective] disorder; R00.1 Bradycardia, unspecified; G30.9 Alzheimer's disease, unspecified; F02.80 Dementia in other diseases classified elsewhere, unspecified severity, without behavioral disturbance, psychotic disturbance, mood disturbance, and anxiety; Z87.440 Personal history of urinary (tract) infections; Z88.0 Allergy status to penicillin; Z79.84 Long term (current) use of oral hypoglycemic drugs; Z79.899 Other long term (current) drug therapy
CPT/HCPCS: 36415; 70450; 71045; 80048; 80053; 81001; 82140; 82272; 82947; 83735; 84443; 84484; 85025; 85027; 85610; 87086; 87088; 87186; 93005; 97162; 99285; J0696; J1650; J2060

== ENCOUNTER 2023-09-24 19:31 | Emergency (ER) | payer MEDICARE, MEDICAID, SELFPAY ==
--- NOTE | ~2023-09-24 | CT_ITS ---
EXAMINATION: CT HEAD WITHOUT CONTRAST CLINICAL INFORMATION: Pain status-post fall. COMPARISON: CT head dated 05/11/2023. TECHNIQUE: Contiguous axial imaging was performed from the skull base to vertex without intravenous administration of contrast. Multiplanar reformatted images are submitted. This CT examination was performed using dose optimization techniques as appropriate, variously including the following: *Automated exposure control *Adjustment of mA and/or kV according to patient size (this includes techniques or standardized protocols for targeted exams where dose is matched to indication/reason for exam; i.e. extremities or head) *Use of iterative reconstruction technique DLP: 851 mGy-cm (head and cervical spine) FINDINGS: There is no acute intracranial hemorrhage or evidence of territorial infarction. No abnormal mass effect or midline shift is seen. Estrella to white matter differentiation is well preserved. There is mild patchy low attenuation change in the periventricular white matter spaces. The ventricles and sulci show stable commensurate prominence. No extra-axial fluid collections are identified. The calvarium and scalp soft tissues are normal. The middle ear cavity and mastoid air cells are clear. The visualized paranasal sinuses are clear. CT/CT cervical spine wo IV con IMPRESSION: 1. No acute intracranial pathology. 2. There is stable cerebral volume loss and mild chronic microangiopathy. EXAMINATION: CT CERVICAL SPINE WITHOUT CONTRAST CLINICAL INFORMATION: Neck pain status-post fall. COMPARISON: CT cervical spine dated 12/22/2022. TECHNIQUE: Contiguous axial imaging was performed through the cervical spine without intravenous administration of contrast. Multiplanar reformatted images are submitted. This CT examination was performed using dose optimization techniques as appropriate, variously including the following: *Automated exposure control *Adjustment of mA and/or kV according to patient size (this includes techniques or standardized protocols for targeted exams where dose is matched to indication/reason for exam; i.e. extremities or head) *Use of iterative reconstruction technique DLP: As above FINDINGS: Vertebral body heights are normal. At C6-C7, there is mild disc space narrowing. The remaining disc spaces are relatively well-maintained. No acute fracture or spondylolisthesis is seen. This multi-level mild to moderate spondylosis, most pronounced at C6-C7. The posterior elements are intact. There is no prevertebral soft tissue swelling. The dens is intact. There is mild biapical pleural and parenchymal scarring. The bilateral lung apices are otherwise clear. IMPRESSION: 1. No acute fracture or spondylolisthesis is seen. 2. There is mild degenerative disc disease at C6-C7. 3. There is multi-level mild to moderate cervical spondylosis, most pronounced at C6-C7. Fleischner guidelines were followed.
[2023-09-24 19:46] VITALS: BP 110/72; BP 129/70; PULSE 59; PULSE 62; RESP 16; O2SAT 99; BMI 16.1
--- NOTE | 2023-09-24 22:16 | ED.FALL ---
HPI - Fall General Chief Complaint: Fall Stated Complaint: fell @1850, blood has clotted on back of skull Time Seen by Provider: 09/24/23 19:52 Source: family Mode of arrival: EMS Limitations: no limitations History of Present Illness HPI Narrative: Patient has significant dementia with frequent falls was walking with her granddaughter looking upwards tripped and fell landed head hitting the floor small laceration on the right occipital area no loss of consciousness no seizures patient has similar falls in the past Related Data Allergies Allergy/AdvReac Type Severity Reaction Status Date / Time Penicillins Allergy Unknown Verified 09/24/23 19:57 Review of Systems Review of Systems: Yes all other systems are reviewed and are negative [facility] Social History Social History Advance Directives: No Advance Directives Information Provided: Yes Physical Exam Vital Signs: Vital Signs: Last Vital Signs Pulse 51 09/24/23 22:52 Resp 15 09/24/23 22:52 BP 130/61 09/24/23 22:52 Pulse Ox 95 09/24/23 22:52 O2 Del Method Room Air 09/24/23 22:52 BMI result Body Mass Index 16.1 Appearance: Alert. Severely demented. No acute distress. Eyes: PERRLA, No Nystagmus ENT: Pharynx normal. Oral Mucosa moist Neck: Normal inspection. Neck supple. CVS: Normal heart rate and rhythm. Pulses normal. Respiratory: No respiratory distress. Equal air entry bilateral, no wheezing/rales/rhonchi Abdomen: Soft and nontender. Bowel sounds are present, no mass palpable, no CVA tenderness Skin: Skin warm and dry. Normal skin color. Normal skin turgor. Superficial 1 cm laceration right occipital area Extremities: No lower extremity edema. No calf tenderness, stable pelvic Neuro: Alert and awake with severe dementia no focal deficit Procedures Laceration Laceration 1: Site: scalp Side (If applicable): right Size (cm): 1 Description: linear Depth: simple, single layer Skin layer closed with: other ([place]) Number of sutures: 4 Medical Decision Making Medical Decision Making MDM Narrative: Patient s/p mechanical falls has help at home family educated discharge patient home with precautions. Patient had CT and C-spine negative Differential Diagnosis Differential Diagnoses: The differential diagnosis associated with the presentation includes Skull fracture/SAH / ICH /SDH Independent Interpretation I performed an independent interpretation of an: CT Scan Radiology Impression Discussion of test interpretation with radiology: I have reviewed the radiologist's reading. Discharge Plan Discharge Clinical Impression: Fall, Laceration of scalp Patient Disposition: Home, Self-Care Instructions: Laceration (ED), Fall Prevention for Older Adults (ED) Additional Instructions: Care and cautions as adv Local care as advised Stable removed in 7-10 days
[2023-09-24 22:52] VITALS: BP 130/61; PULSE 51; RESP 15; O2SAT 95
== END 2023-09-24 23:19 | disposition home or self-care (01) ==
PROVIDERS: Emergency Provider Internal Medicine; PCP Internal Medicine
DX: S01.01XA Laceration without foreign body of scalp, initial encounter (principal); R51.9 Headache, unspecified; M54.2 Cervicalgia; W10.9XXA Fall (on) (from) unspecified stairs and steps, initial encounter; Y93.9 Activity, unspecified; Y92.9 Unspecified place or not applicable; Y99.9 Unspecified external cause status
CPT/HCPCS: 12001; 70450; 72125; 99284

== ENCOUNTER 2023-09-28 14:32 | Emergency (ER) | payer MEDICARE, MEDICAID, SELFPAY ==
--- NOTE | ~2023-09-28 | CT_ITS ---
CT HEAD WITHOUT IV CONTRAST CT CERVICAL SPINE WITHOUT IV CONTRAST INDICATION: Trauma. COMPARISON: Head and cervical spine CT 09/24/2023. TECHNIQUE: Multidetector CT acquisitions of the head and cervical spine were obtained without IV contrast. Multiplanar reformats were acquired and utilized for image interpretation. This CT examination was performed using dose optimization techniques as appropriate, variously including the following: *Automated exposure control *Adjustment of mA and/or kV according to patient size (this includes techniques or standardized protocols for targeted exams where dose is matched to indication/reason for exam; i.e. extremities or head) *Use of iterative reconstruction technique FINDINGS: HEAD: There is small volume dependent intraventricular hemorrhage within the occipital horns bilaterally and along the septum pellucidum. There is global cerebral volume loss and there is chronic microangiopathy. There is no hydrocephalus, extra-axial surface collection, midline shift, or other herniation pattern. Estrella to white matter differentiation is diffusely maintained without evidence of an evolved acute territorial infarct. The basilar cisterns are preserved. There is a displaced fracture involving the right mandibular condylar head with associated dislocation of the condylar fracture fragment anteriorly. Anterior right frontal scalp hematoma. Right parietal scalp abbie. CERVICAL SPINE: There is multilevel cervical spondylosis that is greatest at C6-C7. Hypertrophic degenerative changes involving the atlantodental interval. Cervical alignment is maintained. There is no prevertebral soft tissue swelling. There are no acute fractures and there are no acute subluxations. CT/CT cervical spine wo IV con IMPRESSION: - There is small volume dependent intraventricular hemorrhage within the occipital horns bilaterally and along the septum pellucidum. - There is a displaced fracture involving the right mandibular condylar head with associated dislocation of the condylar fracture fragment anteriorly. - Anterior right frontal scalp hematoma. Right parietal scalp abbie. - No acute osseous abnormality within the cervical spine. - The thyroid gland is significantly heterogeneous with attenuation, is enlarged, and there is hypoattenuation along the periphery of the thyroid. Thyroiditis or thyroid trauma not excluded. Recommend correlation with thyroid function tests and follow-up with thyroid ultrasound. Findings discussed with Dr Vallecillo at 5:43 PM on 09/28/2023.
[2023-09-28 14:50] VITALS: BP 140/90; PULSE 82; PULSE 88; RESP 15; TEMP 36.4; O2SAT 98; BMI 15.2
[2023-09-28 15:10] VITALS: BP 122/68
--- NOTE | 2023-09-28 15:11 | ECG_ITS ---
Test Reason : fall Blood Pressure : / mmHG Vent. Rate : 070 BPM Atrial Rate : 070 BPM P-R Int : 198 ms QRS Dur : 078 ms QT Int : 394 ms P-R-T Axes : 054 013 049 degrees QTc Int : 425 ms Normal sinus rhythm Low voltage QRS RSR' or QR pattern in V1 suggests right ventricular conduction delay Nonspecific ST abnormality Abnormal ECG When compared with ECG of 12-MAY-2023 07:27, Previous ECG has undetermined rhythm, needs review Heart rate has increased Referred By: James Hodge Electronically Signed By:NUVIA CARRINGTON MD
--- NOTE | 2023-09-28 15:12 | ED.FALL ---
HPI - Fall General Chief Complaint: Fall Stated Complaint: UNWIT FALL,HIT HEAD PER EMS Time Seen by Provider: 09/28/23 14:36 Source: EMS Mode of arrival: EMS History of Present Illness HPI Narrative: This is a 73 years old the female coming from home after fall no syncope, she is complaining of a headache she has a laceration to the chin she is not anticoagulated. complaint: fall Onset (ago): hour(s) (1) Fall from: standing Fall witnessed: no Place fall occurred: home Loss of consciousness: none Quality: dull Related Data Home Medications Medication Instructions Recorded Confirmed amlodipine 10 mg tablet 10 mg PO DAILY 01/08/21 05/12/23 metformin 500 mg tablet 500 mg PO BIDWM 01/08/21 05/12/23 cholecalciferol (vitamin D3) 50 50 mcg PO DAILY 05/12/23 05/12/23 mcg (2,000 unit) capsule risperidone 0.5 mg tablet 0.5 mg PO DAILY PRN mood 05/12/23 05/12/23 Previous Rx's Medication Instructions Recorded cefuroxime axetil 500 mg tablet 500 mg PO BID #10 tabs 05/13/23 Allergies Allergy/AdvReac Type Severity Reaction Status Date / Time penicillin G procaine Allergy Swelling Verified 09/25/23 07:19 Penicillins Allergy Unknown Verified 09/25/23 07:19 Review of Systems Constitutional: Constitutional: Reports no additional constitutional complaints ENT: Reports system reviewed and no additional complaints, except as documented Cardiovascular: Cardiovascular: Reports no additional cardiovascular complaints [facility] Past Medical History [facility] Narrative: dementia Medical History Tubular adenoma of colon Dementia Pancreatic lesion Diabetes Surgical History H/O prior ablation treatment Social History Social History Household Members: Family Housing: Apartment Do you presently have visiting nurse or other home services: No (pt can't answer this question) Alcohol intake: never Patient Tobacco Use Status: Never used Tobacco Second Hand Smoke Exposure: No Advance Directives: Yes Advance Directives Information Provided: Yes Advance Directives on File: No service: No Physical Exam Vital Signs: Vital Signs: Last Vital Signs Temp 97.5 F 09/28/23 14:50 Pulse 88 09/28/23 14:50 Resp 15 09/28/23 14:50 BP 122/68 09/28/23 15:10 Pulse Ox 98 09/28/23 14:50 O2 Del Method Room Air 09/28/23 14:50 BMI result Body Mass Index 15.2 Const: General: cooperative and comfortable Nutritional Appearance: cachectic HEENT: Head: Yes normal to inspection General nose exam: Normal external nose present Face and sinus: Yes other (3 cm lac chin) Throat: Yes posterior oropharynx normal Neck: Neck: Yes normal visual inspection Chest: Chest palpation & inspection: normal inspection of the chest Resp: Effort & Inspection: normal respiratory effort Auscultation: clear to auscultation bilaterally Cardio: Jugular venous distension: no JVD Rate: regular rate Rhythm: regular rhythm GI: Inspection: Yes normal to inspection Palpation (GI): Soft to palpation, not firm and nontender Percussion: Yes normal to percussion Skin: General skin exam: no rashes or lesions noted Lesions: no lesions Rashes: no rashes Neuro: Cranial nerves: Yes CN's II-XII intact bilaterally Course Reevaluation(s) Reevaluation #1: spoke with sister pt lives home with 24 h supervision Time: 15:57 Reevaluation #2: signed out to Dr Naya sol pending Medications Administered Discontinued Medications Generic Name Dose Route Start Last Admin Trade Name Oliq PRN Reason Stop Dose Admin Lidocaine HCl 5 ml 09/28/23 15:15 09/28/23 15:24 Lidocaine Hcl 1 % Mpf 5 Ml Vial INFILTRATI 09/28/23 15:16 5 ml ONCE ONE Administration Procedures Laceration Laceration 1: Site: other ([place]) Size (cm): 3 Description: linear Depth: simple, single layer Local Anesthetic: lidocaine 1% Amount of anesthesia used (mL): 3 Pre-repair: wound explored Skin layer closed with: nylon Size (cm): 5-0 Number of sutures: 3 Technique: simple, interrupted Medical Decision Making Medical Decision Making [facility] Narrative: Presented after a fall with get head CT C-spine will suture the laceration Differential Diagnosis Differential Diagnoses: The differential diagnosis associated with the presentation includes Subdural hematoma/epidural hematoma Admission/Observation Consideration of admission/observation: Escalation of care including admission/observation considered Lab Data [facility] Lab Attestation statement: I reviewed the patient's lab results. 09/28/23 15:43 09/28/23 15:43 Labs: Lab Results 09/28/23 Range/Units 15:43 WBC 6.0 (4.8-10.8) X10*3/uL RBC 3.67 L (4.20-5.50) X10*6/uL Hgb 11.4 L (12.0-16.0) g/dl Hct 34.8 L (37.0-47.0) % MCV 94.8 (80.0-98.0) fL MCH 31.1 (27.0-33.0) pg MCHC 32.8 (31.0-35.0) g/dl RDW 12.4 (11.0-16.0) % Plt Count 182 (160-400) X10*3/uL MPV 10.0 (9.4-12.3) fL Immature Gran % (Auto) 0.3 (0.0-0.4) % Neut % (Auto) 69.7 (45-73) % Lymph % (Auto) 22.0 (20-40) % [place] % (Auto) 6.3 (2-11) % Eos % (Auto) 1.0 (0-4) % Baso % (Auto) 0.7 (0-2) % Lymph # (Auto) 1.3 (1.2-4.9) X10*3/uL [place] # (Auto) 0.4 (0.1-1.2) X10*3/uL Eos # (Auto) 0.1 (0.0-0.4) X10*3/uL Baso # (Auto) 0.0 (0.0-0.2) X10*3/uL Abs Immat Gran (auto) 0.02 (0.00-0.03) X10*3/uL Absolute Neuts (auto) 4.2 (2.0-8.3) x10*3/uL Absolute Nucleated RBC 0.000 (0.0-0.012) X10*3/uL Nucleated RBC % (auto) 0.0 (0.0-0.2) /100WBC Sodium 140 (135-145) mmol/L Potassium 4.2 (3.3-5.1) mmol/L Chloride 103 (96-108) mmol/L Carbon Dioxide 31 H (22-29) mmol/L Anion Gap 10 L (12-20) BUN 23 H (9-16) mg/dL Creatinine 1.03 (0.5-1.4) mg/dL Estim Creat Clear Calc 28.9 Estimated GFR 52 Random Glucose 131 H (60-115) mg/dL Calcium 8.7 (8.4-10.2) mg/dL Total Bilirubin 0.3 (0.0-1.0) mg/dL AST 22 (5-31) U/L ALT 16 (0-31) U/L Alkaline Phosphatase 57 (39-117) U/L Total Protein 6.7 (6.5-8.0) g/dL Albumin 3.6 (3.5-5.0) g/dL Discharge Plan Discharge Clinical Impression: Fall, Chin laceration Patient Disposition: Still a Patient Prescriptions: No Action cholecalciferol (vitamin D3) 50 mcg (2,000 unit) capsule 50 mcg PO DAILY risperidone 0.5 mg tablet 0.5 mg PO DAILY PRN (Reason: mood) cefuroxime axetil 500 mg tablet 500 mg PO BID Qty: 10 0RF metformin 500 mg tablet 500 mg PO BIDWM amlodipine 10 mg tablet 10 mg PO DAILY
[2023-09-28] MEDS: Lidocaine HCl 1 % MPF 5 ML VIAL INFILTRATI (15:24)
[2023-09-28 15:48] LABS: MANUAL DIFF FLAG NO
[2023-09-28 15:58] LABS: Basophils Percent Auto 0.7 % (0-2); Eosinophils Absolute Auto 0.1 X10*3/uL (0.0-0.4); Hematocrit 34.8 % (37.0-47.0); Hemoglobin 11.4 g/dl (12.0-16.0); Imm Gran Abs Auto 0.02 X10*3/uL (0.00-0.03); Imm Gran Pct Auto 0.3 % (0.0-0.4); Lymphocytes Absolute Auto 1.3 X10*3/uL (1.2-4.9); Mean Corpuscular HGB Conc 32.8 g/dl (31.0-35.0); Mean Corpuscular Hemoglobin 31.1 pg (27.0-33.0); Mean Corpuscular Volume 94.8 fL (80.0-98.0); Monocytes Absolute Auto 0.4 X10*3/uL (0.1-1.2); Monocytes Percent Auto 6.3 % (2-11); Neutrophils Absolute Auto 4.2 x10*3/uL (2.0-8.3); Neutrophils Percent Auto 69.7 % (45-73); Platelet Count 182 X10*3/uL (160-400); Red Blood Count 3.67 X10*6/uL (4.20-5.50); Red Cell Distribution Width 12.4 % (11.0-16.0)
[2023-09-28 16:05] LABS: Alanine Aminotransferase 16 U/L (0-31); Albumin Level 3.6 g/dL (3.5-5.0); Alkaline Phosphatase 57 U/L (39-117); Anion Gap 10 (12-20); Aspartate Amino Transferase 22 U/L (5-31); Bilirubin Total 0.3 mg/dL (0.0-1.0); Blood Urea Nitrogen 23 mg/dL (9-16); Calcium 8.7 mg/dL (8.4-10.2); Carbon Dioxide 31 mmol/L (22-29); Chloride 103 mmol/L (96-108); Creatinine Clr Calc Pharmacy 28.9; Estimated Glomerular Filt Rate 52; Glucose Random 131 mg/dL (60-115); Potassium 4.2 mmol/L (3.3-5.1); Sodium 140 mmol/L (135-145); Total Protein 6.7 g/dL (6.5-8.0)
[2023-09-28] MEDS: Diphth,Pertus(ACell),Tet Adult 0.5 ML SYRINGE IM (16:49)
[2023-09-28 18:25] VITALS: BP 148/75; PULSE 79; RESP 20; TEMP 36.6; O2SAT 97
== END 2023-09-28 18:56 | disposition short-term general hospital (02) ==
PROVIDERS: Emergency Provider Emergency Medicine; PCP Internal Medicine
DX: S01.81XA Laceration without foreign body of other part of head, initial encounter (principal); W01.0XXA Fall on same level from slipping, tripping and stumbling without subsequent striking against object, initial encounter; F03.C0 Unspecified dementia, severe, without behavioral disturbance, psychotic disturbance, mood disturbance, and anxiety; Z91.81 History of falling; Y93.E9 Activity, other interior property and clothing maintenance; Y92.003 Bedroom of unspecified non-institutional (private) residence as the place of occurrence of the external cause; Y99.9 Unspecified external cause status
CPT/HCPCS: 12013; 36415; 70450; 72125; 80053; 85025; 90471; 90715; 93005; 99284; 99285